=== PATIENT | female | born 1960 | race Caucasian/White ===

== ENCOUNTER → 2016-11-16 | Outpatient (CLI) | payer MEDICARE, MEDICAID ==
[~2016-11-16] MED LIST: ACET-461 PO; ACET325T38 PO; ADV1DS IH; ALB0.5V; ALBU0.632 IH; ALBU17AE23 IH; ALBU17AE3 IH; AMLO5TAB4 PO; ARPZ10T; ARPZ20T; ATEN100T88 PO; CODE118S2 PO; DOXY100C2 PO; FERR324T11 PO; FLUT1DIS26 INH; FLUT1DIS27; FLUT1DIS27 IH; HYDR-34 PO; HYDR12.56 PO; HYDROCODONE; IPRA3AMP11 INH; LISI-556 PO; LISI10TA PO; LISI10TA2 PO; METO50TA2 PO; MISO200T4 PO; MTP50T PO; PANT40TA PO; POTA20TA15 PO; PRD20T PO; PRED20TA PO; SLMFT1E INH; SPIR100T37 PO; SPRN25T PO; TIOT18CA IH; TIOT18CA2 INH; TPR100T; TRH2T; TRIA15OI9 TP; TRM50T PO; TRZ100T; TYLENOL; VENL150C; ZLP10T
--- NOTE | 2016-11-16 14:50 | Diagnostic Imaging Report ---
EXAMINATION: Left lower extremity duplex venous ultrasound. TECHNIQUE: DVT protocol. Multiple sonographic images with color Doppler and waveform interrogation were performed of the left lower extremity veins with compression and augmentation maneuvers. INDICATION: Left leg pain and swelling. FINDINGS: The left lower extremity veins from the groin to below the knee veins were examined with normal color-flow, compressibility and waveform demonstrated. The great saphenous vein is patent. IMPRESSION: No evidence of DVT in the left lower extremity. Dictated by: Dictated on workstation # [id number]
== END ==
LOC: RAD 14:17
PROVIDERS: ATTEND Nurse Practitioner Community Health
DX: M79.89 Other specified soft tissue disorders (principal)

== ENCOUNTER 2017-02-08 14:11 | Emergency (ER) | payer MEDICARE, MEDICAID ==
[~2017-02-08] VITALS: Ht 157.5 cm; Wt 66.7 kg
[2017-02-08] MEDS ORDERED: MUPI15CR11 TP (15:08)
[2017-02-08] MEDS ORDERED: TETANUS,DIPTH,PERTUSS P/F (BOOSTRIX) 0.5 ML VIAL IM STA (15:09)
--- NOTE | 2017-02-08 15:09 | ED Lower Extremity ---
General Chief Complaint: Foreign Body Stated Complaint: SPLINTER IN LEG Nursing Triage Note: PT STATES HAS SPLINTER IN L POSTERIOR THIGH Nursing Sepsis Screen: No Definite Risk History of Present Illness Time seen by provider: 14:50 Initial Comments Evaluation for scratch, left posterior mid thigh. Patient reports that 2-3 days ago she bumped into a table she removed a splinter. Since that she has had pain in this site. She has been treating it with peroxide and Triple Antibiotic ointment. Pain/Injury Location: left leg Method of Injury: fell Allergies and Home Medications Allergies Coded Allergies: amoxicillin (Verified Allergy, Unknown, 03/26/08) diphenhydramine (Verified Allergy, Unknown, 03/26/08) gabapentin (Unverified Allergy, Unknown, 11/09/14) Home Medications Acetaminophen 500 Mg Tablet, 1,000 MG PO Q4H PRN for PAIN, (Reported) Albuterol/Ipratropium 3 Ml Nebu, 3 ML INH Q6H PRN for SHORTNESS OF BREATH, ( Reported) Amlodipine Besylate 5 Mg Tablet, 5 MG PO DAILY, #30 Ref 0 Prescribed by: IVETTE JACKSON on 04/20/16 2151 Lisinopril 5 Mg Tablet, 5 MG PO DAILY, (Reported) Metoprolol Tartrate 50 Mg Tablet, 50 MG PO BID, (Reported) Mupirocin Calcium 15 Gm Cream..g., 15 GM TP TID, #1 Ref 0 Apply to left thigh abrasion 3 times a day. Prescribed by: LENNY BAZZI on 02/08/17 1508 Tiotropium [place] 1 Inh Aerp, 1 CAP INH DAILY, (Reported) Triamcinolone Acetonide 15 Gm Oint, 1 APPLIC TP BID, #30 Ref 0 Prescribed by: IVETTE JACKSON on 04/20/16 2150 Constitutional: no symptoms reported, see HPI Skin: see HPI, lesions Past [id number] Hx Patient Social History Alcohol Use: Denies Use Recreational Drug Use: No Smoking Status: Current Someday Smoker Type Used: Cigarettes Recent Foreign Travel: No Contact w/Someone Who Travel: No Recent Infectious Disease Expo: No Recent Hopitalizations: No Immunizations Up To Date Tetanus Booster (TDap): Unknown PED Vaccines UTD: No Date of Pneumonia Vaccine: Jan 27, 2015 Seasonal Allergies Seasonal Allergies: Yes Surgeries HX Surgeries: Yes Surgeries: Section, Gallbladder, Hysterectomy, Thyroidectomy Respiratory Hx Respiratory Disorders: Yes Respiratory Disorders: COPD Cardiovascular Hx Cardiac Disorders: Yes Cardiac Disorders: Hypertension Neurological Hx Neurological Disorders: Yes Neurological Disorders: Headaches /Migraines Reproductive System Hx Reproductive Disorders: Yes Sexually Transmitted Disease: No HIV/AIDS: No Female Reproductive Disorders: Menstrual Problems 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 Hx 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 Disorders: Yes (RENAL FAILURE?) Gastrointestinal Hx Gastrointestinal Disorders: No Musculoskeletal Hx Musculoskeletal Disorders: No Endocrine Hx Endocrine Disorders: Yes (PARTIAL THYROIDECTOMY,HYPOGLYCEMIC) Endocrine Disorders: Hypothyroidsim HEENT HX ENT Disorders: Yes Loss of Vision: Denies Hearing Impairment: Hard of Hearing, Deaf Cancer Hx Cancer: Yes Cancer: Uterine Psychosocial Hx Psychiatric Problems: Yes Behavioral Health Disorders: Depression Integumentary HX Skin/Integumentary Disorder: No Blood Transfusions Hx Blood Disorders: No Reviewed Nursing Assessment Reviewed/Agree w Nursing PMH: Yes Family Medical History Significant Family History: No Pertinent Family Hx Family Medial History: Cancer 19 MOTHER Family history: Diabetes mellitus 19 FATHER Stroke 19 FATHER Physical Exam Vital Signs Vital Sign - Last 12Hours 02/08/17 14:35 Temp 97.9 Pulse 67 Resp 18 B/P (MAP) 128/69 Pulse Ox 98 Capillary Refill : Less Than 3 Seconds General Appearance: WD/WN, no apparent distress Cardiovascular: normal peripheral pulses, regular rate, rhythm, no murmur Respiratory: chest non-tender, lungs clear, normal breath sounds Gastrointestinal: normal bowel sounds, non tender, soft Legs: left leg pain (superficial abrasion posterior mid-thigh), left leg soft tissue tenderness Neurologic/Psychiatric: no motor/sensory deficits, alert, normal mood/affect, oriented x 3 Skin: normal color, warm/dry, other (very superficial abrasion, left mid posterior thigh. Trace erythema, no warmth or drainage, no induration or fluctuation.) Progress/Results/Core Measures Results/Orders My Orders Orders - LENNY BAZZI Dipht,Pertuss(Acell),Tet Adult (Boostrix (02/08/17 15:09) Vital Signs/I&O Vital Sign - Last 12Hours 02/08/17 02/08/17 14:35 15:16 Temp 97.9 97.9 Pulse 67 67 Resp 18 18 B/P (MAP) 128/69 Pulse Ox 98 98 Blood Pressure Mean: 88 Progress Note : Time: 14:50 Progress Note Superficial abrasion left posterior thigh, with peroxide and triple antibiotic applied. With Band-Aid. Departure Impression Impression: Primary Impression: Superficial abrasion Disposition: 01 HOME, SELF-CARE Condition: Improved Departure-Patient Inst. Decision time for Depature: 15:05 Referrals: DELFIN KEARNS MD (PCP) Primary Care Physician HONEY RAIN (Family) Primary Care Physician Patient Instructions: Skin Abrasions (DC) Add. Discharge Instructions: Warm moist compresses to left thigh area every 1-2 hours. Clean area with peroxide and apply prescription antibiotic ointment 3 times a day. Keep area Covered with a Band-Aid. Return to emergency department for increased redness, drainage from site, fever greater than 100, or new problems. All discharge instructions reviewed with patient and/or family. Voiced understanding. Scripts Mupirocin Calcium (Mupirocin) 15 Gm Cream..g. 15 GM TP TID, #1 TUBE 0 Refills Apply to left thigh abrasion 3 times a day. Prov: LENNY BAZZI 02/08/17 LENNY BAZZI Feb 08, 2017 15:09
[2017-02-08 15:16] VITALS: BP 128/69
--- OUTSIDE RECORDS SUMMARY | 2017-02-15 22:17 | XMS REPORT ---
Author Author HONEY RAIN Organization [employer] Address Unknown Phone Unavailable Care Team Providers Care Manual Equipment Mechanic Name Role Phone HONEY RAIN CP Unavailable Allergies No Known Allergies Problems Problem Type Condition Code Onset Dates Condition Status Assessment Other screening mammogram Z12.31 Active Problem Essential (primary) hypertension I10 Active Problem Chronic obstructive pulmonary disease, unspecified J44.9 Active Problem Low back pain M54.5 Active Problem Family history of early CAD Z82.49 Active Problem Family history of coronary artery disease V17.3 Active Problem Acquired deafness of left ear H91.92 Active Problem Migraine, unspecified, not intractable, without status migrainosus G43.909 Active Medications No Known Medications Results No Known Results Summary Purpose eClinicalWorks Submission
--- OUTSIDE RECORDS SUMMARY | 2017-02-15 22:17 | XMS REPORT ---
Author YUDELKA [facility] eClinical[employer] Address Unknown Phone Unavailable Care Team Providers Care Sprinkler Driver Name Role Phone YUDELKA GUILLORY CP Unavailable Allergies, Adverse Reactions, Alerts Substance Reaction Event Type Symbicort Info Not Available Drug Allergy Mobic Info Not Available Drug Allergy Benadryl Info Not Available Drug Allergy Amoxicillin Info Not Available Drug Allergy Penicillins Info Not Available Non Drug Allergy Neurontin 100 Mg Capsule makes her feel drunk Non Drug Allergy Problems Problem Type Condition Code Onset Dates Condition Status Assessment Bronchitis J40 Active Assessment Pharyngitis J02.9 Active Problem Essential (primary) hypertension I10 Active Problem Chronic obstructive pulmonary disease, unspecified J44.9 Active Problem Low back pain M54.5 Active Problem Family history of early CAD Z82.49 Active Problem Family history of coronary artery disease V17.3 Active Problem Acquired deafness of left ear H91.92 Active Problem Migraine, unspecified, not intractable, without status migrainosus G43.909 Active Medications Medication Code System Code Instructions Start Date End Date Status Dosage Aspirin EC Low Dose [facility] [address]-70 81 MG Orally Once a day Apr 28, 2015 November 24, 2015 1 tablet Ventolin HFA [facility] [address]-68 108 (90 Base) MCG/ACT Inhalation as needed Apr 28, 2015 2 puffs as needed Tylenol [facility] [address]-09 325 MG Orally every 6 hrs 1 tablet as needed Ipratropium-Albuterol [facility] [address]-07 0.5-2.5 (3) MG/3ML Inhalation Four times a day As Needed February 19, 2015 3 ml Metoprolol Tartrate [facility] 21497262918 50 MG TAKE 1 TABLET TWICE DAILY Lisinopril [facility] 32827415500 5 MG TAKE 1 TABLET ONE TIME DAILY Cheratussin AC [facility] [address]-20 100-10 MG/5ML Orally every 4-6 hrs as needed for cough Jul 09, 2015 Jul 16, 2015 5 ml Spiriva HandiHaler [facility] [address]-59 18 MCG Inhalation Once a day 1 capsule Procedures Procedure Coding System Code Date Office Visit, Est Pt., Level 3 CPT-4 68838 Jul 09, 2015 DEPO MEDROL 40 MG/ML CPT-4 J1030 Jul 09, 2015 [facility] VISIT ESTABLISHED PATIENT CPT-4 G0467 Jul 09, 2015 DEXAMETHASONE 4MG/ML (PER 1 MG) CPT-4 J1100 Jul 09, 2015 THER/PROPH/DIAG INJ, SC/IM CPT-4 27461 Jul 09, 2015 Vital Signs Date/Time: Jul 09, 2015 Temperature 97.5 F Weight 163.8 lbs Height 62 in BMI 29.96 Index Blood Pressure Diastolic 98 mmHg Blood Pressure Systolic 146 mmHg Cardiac Monitoring Heart Rate 72 bpm Results No Known Results Summary Purpose eClinicalWorks Submission
--- OUTSIDE RECORDS SUMMARY | 2017-02-15 22:17 | XMS REPORT ---
Author Author HONEY RAIN Organization [employer] Address Unknown Phone Unavailable Care Team Providers Care Pleat Taper Name Role Phone HONEY RAIN CP Unavailable Allergies No Known Allergies Problems Problem Type Condition ICD-9 Code Onset Dates Condition Status Problem Essential hypertension, benign 401.1 Active Problem Rash and other nonspecific skin eruption 782.1 Active Problem Pain in joint, shoulder region 719.41 Active Problem Chest discomfort 786.59 Active Problem Cough 786.2 Active Problem ARANDA (dyspnea on exertion) 786.09 Active Problem Unspecified hypotension 458.9 Active Problem Hypertension 401.9 Active Problem Leg swelling 729.81 Active Problem Lumbago 724.2 Active Problem Tobacco use 305.1 Active Problem Family history of coronary artery disease V17.3 Active Problem Migraine, unspecified without mention of intractable migraine without mention of status migrainosus 346.90 Active Problem Acute bronchitis 466.0 Active Problem Unspecified disorder of kidney and ureter 593.9 Active Problem Unspecified breast screening V76.10 Active Problem Routine general medical examination at health care facility V70.0 Active Problem Syncope and collapse 780.2 Active Problem Acute sinusitis, unspecified 461.9 Active Problem Other chronic pain 338.29 Active Problem Candidiasis of mouth 112.0 Active Problem Chronic airway obstruction, not elsewhere classified 496 Active Medications No Known Medications Results No Known Results Summary Purpose eClinicalWorks Submission
--- OUTSIDE RECORDS SUMMARY | 2017-02-15 22:18 | XMS REPORT ---
Author Author HONEY RAIN [facility] eClinicalWorks Address Unknown Phone Unavailable Care Team Providers Care Electronic Train Control Technician Name Role Phone HONEY RAIN CP Unavailable Allergies, Adverse Reactions, Alerts Substance Reaction Event Type Symbicort Info Not Available Drug Allergy Mobic Info Not Available Drug Allergy Gabapentin rash Drug Allergy Benadryl Info Not Available Drug Allergy Amoxicillin Info Not Available Drug Allergy Penicillins Info Not Available Non Drug Allergy Neurontin 100 Mg Capsule makes her feel drunk Non Drug Allergy Problems Problem Type Condition Code Onset Dates Condition Status Problem Family history of coronary artery disease V17.3 Active Problem Migraine, unspecified, not intractable, without status migrainosus G43.909 Active Problem Family history of early CAD Z82.49 Active Problem Essential (primary) hypertension I10 Active Problem Nicotine dependence, unspecified, uncomplicated F17.200 Active Problem Anxiety F41.9 Active Problem Chronic obstructive pulmonary disease, unspecified J44.9 Active Problem Acquired deafness of left ear H91.92 Active Problem Headache R51 Active Problem Low back pain M54.5 Active Assessment Breast cancer screening Z12.39 Active Assessment Anxiety F41.9 Active Assessment Nicotine dependence, unspecified, uncomplicated F17.200 Active Assessment Essential (primary) hypertension I10 Active Medications Medication Code System Code Instructions Start Date End Date Status Dosage Ventolin HFA [facility] [address]-31 108 (90 Base) MCG/ACT Inhalation as needed Apr 28, 2015 2 puffs as needed Zyrtec Childrens Allergy [facility] [address]-40 5 MG/5ML Orally Once a day May 17, 2016 5 ml - 10 ml as needed Aspir-81 [facility] [address]-74 81 MG Orally Once a day 1 tablet Amlodipine Besylate [facility] [address]-87 10 MG Orally Once a day 1 tablet Ipratropium-Albuterol [facility] [address]-73 0.5-2.5 (3) MG/3ML Inhalation Four times a day As Needed February 19, 2015 3 ml Metoprolol Tartrate [facility] 46973903273 50 MG TAKE 1 TABLET TWICE DAILY Spiriva HandiHaler [facility] 67455772045 18 INHALE ONE CAPSULE BY MOUTH DAILY USING HANDIHALER DEVICE Lisinopril [facility] [address]-00 20 MG Orally TAKE 1 TABLET ONE TIME DAILY Tylenol [facility] [address]-99 325 MG Orally every 6 hrs 1 tablet as needed Procedures Procedure Coding System Code Date Office Visit, Est Pt., Level 3 CPT-4 79581 May 17, 2016 [facility] VISIT ESTABLISHED PATIENT CPT-4 G0467 May 17, 2016 Vital Signs Date/Time: May 17, 2016 Cardiac Monitoring Heart Rate 78 bpm Weight 145 lbs Height 62 in BMI 26.52 Index Blood Pressure Diastolic 84 mmHg Blood Pressure Systolic 138 mmHg Results No Known Results Summary Purpose eClinicalWorks Submission
--- OUTSIDE RECORDS SUMMARY | 2017-02-15 22:18 | XMS REPORT ---
Author Author HONEY RAIN Organization [employer] Address Unknown Phone Unavailable Care Team Providers Care Topology Teacher Name Role Phone HONEY RAIN CP Unavailable Allergies No Known Allergies Problems Problem Type Condition Code Onset Dates Condition Status Assessment Essential (primary) hypertension I10 Active Problem Essential (primary) hypertension I10 Active Problem Chronic obstructive pulmonary disease, unspecified J44.9 Active Problem Low back pain M54.5 Active Problem Family history of early CAD Z82.49 Active Problem Family history of coronary artery disease V17.3 Active Problem Acquired deafness of left ear H91.92 Active Problem Migraine, unspecified, not intractable, without status migrainosus G43.909 Active Medications No Known Medications Procedures Procedure Coding System Code Date VENIPUNCT, ROUTINE* CPT-4 98667 May 18, 2015 [facility] C[facility] NOBLL May 18, 2015 Results Name Result Date Reference Range Unit Abnormality Flag ROUTINE VENIPUNCTURE Summary Purpose eClinicalWorks Submission
--- OUTSIDE RECORDS SUMMARY | 2017-02-15 22:18 | XMS REPORT ---
Author Author HONEY RAIN Organization [employer] Address Unknown Phone Unavailable Care Team Providers Care Deputy Clerk Of Court Name Role Phone HONEY RAIN CP Unavailable Allergies No Known Allergies Problems Problem Type Condition Code Onset Dates Condition Status Problem Essential (primary) hypertension I10 Active Problem [...]
--- OUTSIDE RECORDS SUMMARY | 2017-02-15 22:18 | XMS REPORT ---
Author Author HONEY RAIN [facility] eClinicalWorks Address Unknown Phone Unavailable Care Team Providers Care Couture Alterations Dressmaker Name Role Phone HONEY RAIN CP Unavailable [...] Condition Code Onset Dates Condition Status Assessment Chronic obstructive pulmonary disease, unspecified J44.9 Active Problem Family history of early CAD Z82.49 Active Problem Family history of coronary artery disease V17.3 Active Problem Headache R51 Active Problem COPD (chronic obstructive pulmonary disease) J44.9 Active Problem Hypertension I10 Active Problem Acquired deafness of left ear H91.92 Active Problem Migraine, unspecified, not intractable, without status migrainosus G43.909 Active Problem Low back pain M54.5 Active Problem Chronic obstructive pulmonary disease, unspecified J44.9 Active Assessment COPD (chronic obstructive pulmonary disease) J44.9 Active Assessment Headache R51 Active Assessment Hypertension I10 Active Medications Medication Code System Code Instructions Start Date End Date Status Dosage Breo Ellipta [facility] [address]-32 100-25 MCG/INH Inhalation Once a day November 18, 2015 1 puff Ventolin HFA [facility] [address]-65 108 (90 Base) MCG/ACT Inhalation as needed Apr 28, 2015 2 puffs as needed Ipratropium-Albuterol [facility] [address]-20 0.5-2.5 (3) MG/3ML Inhalation Four times a day As Needed February 19, 2015 3 ml Metoprolol Tartrate [facility] 67578991540 50 MG TAKE 1 TABLET TWICE DAILY Spiriva HandiHaler [facility] [address]-22 18 INHALE THE ENTIRE CONTENTS OF 1 CAPSULE ONCE A DAY USING HANDIHALER DEVICE Tylenol [facility] [address]-78 325 MG Orally every 6 hrs 1 tablet as needed Lisinopril [facility] [address]-89 20 MG Orally TAKE 1 TABLET ONE TIME DAILY Aspirin EC Low Dose [facility] [address]-60 81 MG Orally Once a day Apr 28, 2015 November 24, 2015 1 tablet Procedures Procedure Coding System Code Date Office Visit, Est Pt., Level 3 CPT-4 73266 November 18, 2015 [facility] VISIT ESTABLISHED PATIENT CPT-4 G0467 November 18, 2015 Vital Signs Date/Time: November 18, 2015 Temperature 98.2 F Weight 158.8 lbs Height 62 in BMI 29.04 Index Blood Pressure Diastolic 100 mmHg Blood Pressure Systolic 170 mmHg Cardiac Monitoring Heart Rate 64 bpm Results No Known Results Summary Purpose eClinicalWorks Submission
--- OUTSIDE RECORDS SUMMARY | 2017-02-15 22:18 | XMS REPORT ---
Author Author HONEY RAIN [facility] eClinicalWorks Address Unknown Phone Unavailable Care Team Providers Care Animal Care Taker Name Role Phone HONEY RAIN CP Unavailable [...] obstructive pulmonary disease, unspecified J44.9 Active Assessment Essential (primary) hypertension I10 Active Problem [...] Instructions Start Date End Date Status Dosage Ipratropium-Albuterol [facility] [address]-64 0.5-2.5 (3) MG/3ML Inhalation Four times a day As Needed February 19, [address] [facility] [address]-57 5 MG Orally Once a day December 18, [address] [facility] [address]-48 325 MG Orally every 6 hrs 1 tablet as needed Aspirin EC Low Dose [facility] [address]-64 81 MG Orally Once a day Apr 28, 2015 November 24, 2015 1 tablet Aspir-[address] [facility] [address]-99 81 MG Orally Once a day [address] HFA [facility] [address]-08 108 (90 Base) MCG/ACT Inhalation as needed Apr 28, 2015 2 puffs as needed Spiriva HandiHaler [facility] [address]-25 18 MCG Inhalation Once a day 1 capsule Metoprolol Tartrate [facility] [address]-28 50 MG Orally Twice a day December 18, 2014 1 tablet Procedures Procedure Coding System Code Date [facility] VISIT ESTABLISHED PATIENT CPT-4 G0467 Apr 28, 2015 Office Visit, Est Pt., Level 3 CPT-4 22372 Apr 28, 2015 MEASURE BLOOD OXYGEN LEVEL CPT-4 51377 Apr 28, 2015 Vital Signs Date/Time: Apr 28, 2015 Temperature 97.4 F Weight 159.4 lbs Height 62 in Oximetry 92 % Blood Pressure Diastolic 84 mmHg Blood Pressure Systolic 156 mmHg Cardiac Monitoring Heart Rate 72 bpm BMI 29.15 Index Results No Known Results Summary Purpose eClinicalWorks Submission
--- OUTSIDE RECORDS SUMMARY | 2017-02-15 22:18 | XMS REPORT ---
Author Author HONEY RAIN Organization [employer]ClinicalWorks Address Unknown Phone Unavailable Care Team Providers Care Centrifugal Casting Machine Tender Name Role Phone HONEY RAIN CP Unavailable [...] obstruction, not elsewhere classified 496 Active Medications Medication Code System Code Instructions Start Date End Date Status Dosage Spiriva HandiHaler [facility] [address]-73 18 MCG Inhalation Once a day 1 capsule Results No Known Results Summary Purpose eClinicalWorks Submission
--- OUTSIDE RECORDS SUMMARY | 2017-02-15 22:18 | XMS REPORT ---
Author Author HONEY RAIN Organization [employer] Address Unknown Phone Unavailable Care Team Providers Care Automobile Mechanic Name Role Phone HONEY RAIN CP [...]
--- OUTSIDE RECORDS SUMMARY | 2017-02-15 22:19 | XMS REPORT ---
Author Author HONEY RAIN [facility] eClinicalWorks Address Unknown Phone Unavailable Care Team Providers Care Carpenter Apprentice Name Role Phone HONEY RAIN CP Unavailable [...] Condition Code Onset Dates Condition Status Assessment Headache R51 Active Problem Family history of coronary artery disease V17.3 Active Assessment Essential (primary) hypertension I10 Active Assessment Chronic obstructive pulmonary disease, unspecified J44.9 Active Problem Headache R51 Active Problem Low back pain M54.5 Active Problem Hypertension I10 Active Problem Migraine, unspecified, not intractable, without status migrainosus G43.909 Active Problem Family history of early CAD Z82.49 Active Problem Chronic obstructive pulmonary disease, unspecified J44.9 Active Problem Acquired deafness of left ear H91.92 Active Medications Medication Code System Code Instructions Start Date End Date Status Dosage Tylenol [facility] [address]-31 325 MG Orally every 6 hrs 1 tablet as needed Ipratropium-Albuterol [facility] [address]-21 0.5-2.5 (3) MG/3ML Inhalation Four times a day As Needed February 19, 2015 3 ml Spiriva HandiHaler [facility] 20350308470 18 INHALE ONE CAPSULE BY MOUTH DAILY USING HANDIHALER DEVICE Amlodipine Besylate [facility] [address]-42 10 MG Orally Once a day 1 tablet Lisinopril [facility] [address]-58 20 MG Orally TAKE 1 TABLET ONE TIME DAILY Metoprolol Tartrate [facility] 99402516527 50 MG TAKE 1 TABLET TWICE DAILY Ventolin HFA [facility] [address]-85 108 (90 Base) MCG/ACT Inhalation as needed Apr 28, 2015 2 puffs as needed Procedures Procedure Coding System Code Date Office Visit, Est Pt., Level 3 CPT-4 72489 Apr 21, 2016 [facility] VISIT ESTABLISHED PATIENT CPT-4 G0467 Apr 21, 2016 Vital Signs Date/Time: Apr 21, 2016 Cardiac Monitoring Heart Rate 74 bpm Weight 152.8 lbs Height 62 in BMI 27.94 Index Blood Pressure Diastolic 82 mmHg Blood Pressure Systolic 150 mmHg Results No Known Results Summary Purpose eClinicalWorks Submission
--- OUTSIDE RECORDS SUMMARY | 2017-02-15 22:20 | XMS REPORT | Continuity of Care Document ---
Author Author [facility] Address Unknown Phone Unavailable Allergies Active Description Code Type Severity Reaction Onset Reported/Identified Relationship to Patient Clinical Status Yes amoxicillin [id number] Drug Allergy Unknown N/A 03/26/2008 Yes diphenhydramine [id number] Drug Allergy Unknown N/A 03/26/2008 Yes Amoxicillin Drug Allergy N/A N/A 01/31/2013 Yes Benadryl Drug Allergy N/A N/A 01/31/2013 Yes Mobic Drug Allergy N/A N/A 06/24/2013 Yes Penicillins Drug Allergy N/A N/A 06/24/2013 Yes Symbicort Drug Allergy N/A N/A 11/12/2013 Yes Neurontin 100 mg capsule Drug Allergy N/A N/A 01/21/2014 Yes gabapentin [id number] Drug Allergy Unknown N/A 11/09/2014 Medications Problems Date Dx Coded Attending Type Code Diagnosis Diagnosed By 12/03/2009 Ot V12.72 PERSONAL HISTORY OF COLONIC POLYPS 12/03/2009 Ot V67.09 SURGERY FOLLOW-UP, OTHER SURGERY 12/20/2009 Ot 276.1 12/20/2009 Ot 300.4 12/20/2009 Ot 305.1 12/20/2009 Ot 458.0 12/20/2009 Ot 491.21 12/20/2009 Ot 959.3 12/20/2009 Ot E000.9 12/20/2009 Ot E030 12/20/2009 Ot E849.0 12/20/2009 Ot E888.9 12/20/2009 Ot E947.9 10/15/2010 Ot 401.9 10/15/2010 Ot 492.8 08/16/2012 Ot 719.45 JOINT PAIN-PELVIS 08/16/2012 Ot 722.52 LUMB/LUMBOSAC DISC DEGEN 08/16/2012 Ot V57.1 PHYSICAL THERAPY NEC 01/14/2013 REYNALDO NAVA, VICKI Fatima Ot 491.21 OBSTR CHRONIC BRONCHITIS, W (ACUTE) EXAC 01/14/2013 VICKI WALL Ot 780.2 SYNCOPE AND COLLAPSE 01/31/2013 BRISEYDA ONLINE MERCHANDISING MANAGER, HONEY S 338.29 CHRONIC PAIN 01/31/2013 BRISEYDA ONLINE MERCHANDISING MANAGER, HONEY S 401.1 ESSENTIAL HYPERTENSION BENIGN 01/31/2013 BRISEYDA ONLINE MERCHANDISING MANAGER, HONEY S 496 CHRONIC OBSTRUCTIVE PULMONARY DISEASE 01/31/2013 BRISEYDA ONLINE MERCHANDISING MANAGER, HONEY S 780.2 fainting (syncope) 01/31/2013 BRISEYDA ONLINE MERCHANDISING MANAGER, HONEY S V70.0 NORMAL ROUTINE HISTORY AND PHYSICAL 01/31/2013 CUELLAR DO, LAMBERTO K 338.29 CHRONIC PAIN 01/31/2013 CUELLAR DO, LAMBERTO K 401.1 ESSENTIAL HYPERTENSION BENIGN 01/31/2013 CUELLAR DO, LAMBERTO K 496 CHRONIC OBSTRUCTIVE PULMONARY DISEASE 01/31/2013 CUELLAR DO, LAMBERTO K 780.2 fainting (syncope) 01/31/2013 CUELLAR DO, LAMBERTO K V70.0 NORMAL ROUTINE HISTORY AND PHYSICAL 01/31/2013 DELFIN KEARNS MD 338.29 CHRONIC PAIN 01/31/2013 DELFIN KEARNS MD 401.1 ESSENTIAL HYPERTENSION BENIGN 01/31/2013 DELFIN KEARNS MD 496 CHRONIC OBSTRUCTIVE PULMONARY DISEASE 01/31/2013 DELFIN KEARNS MD 780.2 fainting (syncope) 01/31/2013 DELFIN KEARNS MD V70.0 NORMAL ROUTINE HISTORY AND PHYSICAL 01/31/2013 BRISEYDA HELLER, HONEY S 338.29 CHRONIC PAIN 01/31/2013 BRISEYDA ASTORGAN, HONEY S 401.1 ESSENTIAL HYPERTENSION BENIGN 01/31/2013 BRISEYDA ONLINE MERCHANDISING MANAGER, HONEY S 496 CHRONIC OBSTRUCTIVE PULMONARY DISEASE 01/31/2013 BRISEYDA ONLINE MERCHANDISING MANAGER, HONEY S 780.2 fainting (syncope) 01/31/2013 BRISEYDA ONLINE MERCHANDISING MANAGER, HONEY S V70.0 NORMAL ROUTINE HISTORY AND PHYSICAL 01/31/2013 BRISEYDA ONLINE MERCHANDISING MANAGER, HONEY S 338.29 CHRONIC PAIN 01/31/2013 BRISEYDA ONLINE MERCHANDISING MANAGER, HONEY S 401.1 ESSENTIAL HYPERTENSION BENIGN 01/31/2013 BRISEYDA ONLINE MERCHANDISING MANAGER, HONEY S 496 CHRONIC OBSTRUCTIVE PULMONARY DISEASE 01/31/2013 BRISEYDA ONLINE MERCHANDISING MANAGER, HONEY S 780.2 fainting (syncope) 01/31/2013 BRIESYDA ONLINE MERCHANDISING MANAGER, HONEY S V70.0 NORMAL ROUTINE HISTORY AND PHYSICAL 01/31/2013 BRISEYDA ONLINE MERCHANDISING MANAGER, HONEY S 338.29 CHRONIC PAIN 01/31/2013 BRISEYDA ONLINE MERCHANDISING MANAGER, HONEY S 401.1 ESSENTIAL HYPERTENSION BENIGN 01/31/2013 BRISEYDA ONLINE MERCHANDISING MANAGER, HONEY S 496 CHRONIC OBSTRUCTIVE PULMONARY DISEASE 01/31/2013 BRISEYDA ONLINE MERCHANDISING MANAGER, HONEY S 780.2 fainting (syncope) 01/31/2013 BRISEYDA ONLINE MERCHANDISING MANAGER, HONEY S V70.0 NORMAL ROUTINE HISTORY AND PHYSICAL 01/31/2013 BRISEYDA ONLINE MERCHANDISING MANAGER, HONEY S 338.29 CHRONIC PAIN 01/31/2013 BRISEYDA ONLINE MERCHANDISING MANAGER, HONEY S 401.1 ESSENTIAL HYPERTENSION BENIGN 01/31/2013 BRISEYDA ONLINE MERCHANDISING MANAGER, HONEY S 496 CHRONIC OBSTRUCTIVE PULMONARY DISEASE 01/31/2013 BRISEYDA ONLINE MERCHANDISING MANAGER, HONEY S 780.2 fainting (syncope) 01/31/2013 BRISEYDA ONLINE MERCHANDISING MANAGER, HONEY S V70.0 NORMAL ROUTINE HISTORY AND PHYSICAL 01/31/2013 BRISEYDA ONLINE MERCHANDISING MANAGER, HONEY S 338.29 CHRONIC PAIN 01/31/2013 BRISEYDA ONLINE MERCHANDISING MANAGER, HONEY S 401.1 ESSENTIAL HYPERTENSION BENIGN 01/31/2013 BRISEYDA ONLINE MERCHANDISING MANAGER, HONEY S 496 CHRONIC OBSTRUCTIVE PULMONARY DISEASE 01/31/2013 BRISEYDA ONLINE MERCHANDISING MANAGER, HONEY S 780.2 fainting (syncope) 01/31/2013 BRISEYDA ONLINE MERCHANDISING MANAGER, HONEY S V70.0 NORMAL ROUTINE HISTORY AND PHYSICAL 01/31/2013 DELFIN KEARNS MD 338.29 CHRONIC PAIN 01/31/2013 DELFIN KEARNS MD 401.1 ESSENTIAL HYPERTENSION BENIGN 01/31/2013 DELFIN KEARNS MD 496 CHRONIC OBSTRUCTIVE PULMONARY DISEASE 01/31/2013 DELFIN KEARNS MD 780.2 fainting (syncope) 01/31/2013 DELFIN KEARNS MD V70.0 NORMAL ROUTINE HISTORY AND PHYSICAL 01/31/2013 CUELLAR DO, LAMBERTO K 338.29 CHRONIC PAIN 01/31/2013 CUELLAR DO, LAMBERTO K 401.1 ESSENTIAL HYPERTENSION BENIGN 01/31/2013 CUELLAR DO, LAMBERTO K 496 CHRONIC OBSTRUCTIVE PULMONARY DISEASE 01/31/2013 CUELLAR DO, LAMBERTO K 780.2 fainting (syncope) 01/31/2013 CUELLAR DO, LAMBERTO K V70.0 NORMAL ROUTINE HISTORY AND PHYSICAL 01/31/2013 BRISEYDA ONLINE MERCHANDISING MANAGER, HONEY S 338.29 CHRONIC PAIN 01/31/2013 BRISEYDA ONLINE MERCHANDISING MANAGER, HONEY S 401.1 ESSENTIAL HYPERTENSION BENIGN 01/31/2013 BRISEYDA ONLINE MERCHANDISING MANAGER, HONEY S 496 CHRONIC OBSTRUCTIVE PULMONARY DISEASE 01/31/2013 BRISEYDA ONLINE MERCHANDISING MANAGER, HONEY S 780.2 FAINTING (SYNCOPE) 01/31/2013 BRISEYDA ONLINE MERCHANDISING MANAGER, HONEY S V70.0 NORMAL ROUTINE HISTORY AND PHYSICAL 01/31/2013 BRISEYDA ONLINE MERCHANDISING MANAGER, HONEY S 338.29 CHRONIC PAIN 01/31/2013 BRISEYDA ONLINE MERCHANDISING MANAGER, HONEY S 401.1 ESSENTIAL HYPERTENSION BENIGN 01/31/2013 BRISEYDA ONLINE MERCHANDISING MANAGER, HONEY S 496 CHRONIC OBSTRUCTIVE PULMONARY DISEASE 01/31/2013 BRISEYDA ONLINE MERCHANDISING MANAGER, HONEY S 780.2 FAINTING (SYNCOPE) 01/31/2013 BRISEYDA HELLER, HONEY S V70.0 NORMAL ROUTINE HISTORY AND PHYSICAL 01/31/2013 TIMBO ONLINE MERCHANDISING MANAGER, LEAH R 338.29 CHRONIC PAIN 01/31/2013 TIMBO ONLINE MERCHANDISING MANAGER, LEAH R 401.1 ESSENTIAL HYPERTENSION BENIGN 01/31/2013 TIMBO ONLINE MERCHANDISING MANAGER, LEAH R 496 CHRONIC OBSTRUCTIVE PULMONARY DISEASE 01/31/2013 TIMBO ONLINE MERCHANDISING MANAGER, LEAH R 780.2 FAINTING (SYNCOPE) 01/31/2013 TIMBO ONLINE MERCHANDISING MANAGER, LEAH R V70.0 NORMAL ROUTINE HISTORY AND PHYSICAL 01/31/2013 BRISYEDA HELLER, HONEY S 338.29 CHRONIC PAIN 01/31/2013 BRISEYDA ONLINE MERCHANDISING MANAGER, HONEY S 401.1 ESSENTIAL HYPERTENSION BENIGN 01/31/2013 BRISEYDA ONLINE MERCHANDISING MANAGER, HONEY S 496 CHRONIC OBSTRUCTIVE PULMONARY DISEASE 01/31/2013 BRISEYDA ONLINE MERCHANDISING MANAGER, HONEY S 780.2 FAINTING (SYNCOPE) 01/31/2013 BRISEYDA ONLINE MERCHANDISING MANAGER, HONEY S V70.0 NORMAL ROUTINE HISTORY AND PHYSICAL 01/31/2013 TIMBO ONLINE MERCHANDISING MANAGER, LEAH R 338.29 CHRONIC PAIN 01/31/2013 TIMBO ONLINE MERCHANDISING MANAGER, LEAH R 401.1 ESSENTIAL HYPERTENSION BENIGN 01/31/2013 TIMBO ONLINE MERCHANDISING MANAGER, LEAH R 496 CHRONIC OBSTRUCTIVE PULMONARY DISEASE 01/31/2013 TIMBO ONLINE MERCHANDISING MANAGER, LEAH R 780.2 FAINTING (SYNCOPE) 01/31/2013 TIMBO ONLINE MERCHANDISING MANAGER, LEAH R V70.0 NORMAL ROUTINE HISTORY AND PHYSICAL 01/31/2013 CUELLAR DO, LAMBERTO K 338.29 CHRONIC PAIN 01/31/2013 CUELLAR DO, LAMBERTO K 401.1 ESSENTIAL HYPERTENSION BENIGN 01/31/2013 CUELLAR DO, LAMBERTO K 496 CHRONIC OBSTRUCTIVE PULMONARY DISEASE 01/31/2013 CUELLAR DO, LAMBERTO K 780.2 FAINTING (SYNCOPE) 01/31/2013 CUELLAR DO, LAMBERTO K V70.0 NORMAL ROUTINE HISTORY AND PHYSICAL 01/31/2013 BRISEYDA ONLINE MERCHANDISING MANAGER, HONEY S 338.29 CHRONIC PAIN 01/31/2013 BRISEYDA ONLINE MERCHANDISING MANAGER, HONEY S 401.1 ESSENTIAL HYPERTENSION BENIGN 01/31/2013 BRISEYDA ONLINE MERCHANDISING MANAGER, HONEY S 496 CHRONIC OBSTRUCTIVE PULMONARY DISEASE 01/31/2013 BRISEYDA ONLINE MERCHANDISING MANAGER, HONEY S 780.2 FAINTING (SYNCOPE) 01/31/2013 BRISEYDA ONLINE MERCHANDISING MANAGER, HONEY S V70.0 NORMAL ROUTINE HISTORY AND PHYSICAL 04/01/2013 BRISEYDA ONLINE MERCHANDISING MANAGER, HONEY S 719.41 joint pain, localized in the shoulder 04/01/2013 CUELLAR DO, LAMBERTO K 719.41 joint pain, localized in the shoulder 04/01/2013 DELFIN KEARNS MD 719.41 joint pain, localized in the shoulder 04/01/2013 BRISEYDA ONLINE MERCHANDISING MANAGER, HONEY S 719.41 joint pain, localized in the shoulder 04/01/2013 BRISEYDA ONLINE MERCHANDISING MANAGER, HONEY S 719.41 joint pain, localized in the shoulder 04/01/2013 BRISEYDA ONLINE MERCHANDISING MANAGER, HONEY S 719.41 joint pain, localized in the shoulder 04/01/2013 BRISEYDA ONLINE MERCHANDISING MANAGER, HONEY S 719.41 joint pain, localized in the shoulder 04/01/2013 BRISEYDA ONLINE MERCHANDISING MANAGER, HONEY S 719.41 joint pain, localized in the shoulder 04/01/2013 DELFIN KEARNS MD 719.41 joint pain, localized in the shoulder 04/01/2013 CUELLAR DO LAMBERTO K 719.41 joint pain, localized in the shoulder 04/01/2013 BRISEYDA ONLINE MERCHANDISING MANAGER, HONEY S 719.41 joint pain, localized in the shoulder 04/01/2013 BRISEYDA ONLINE MERCHANDISING MANAGER, HONEY S 719.41 joint pain, localized in the shoulder 04/01/2013 TIMBO ONLINE MERCHANDISING MANAGER, LEAH R 719.41 joint pain, localized in the shoulder 04/01/2013 BRISEYDA ONLINE MERCHANDISING MANAGER, HONEY S 719.41 JOINT PAIN, LOCALIZED IN THE SHOULDER 04/01/2013 TIMBO ONLINE MERCHANDISING MANAGER, LEAH R 719.41 JOINT PAIN, LOCALIZED IN THE SHOULDER 04/01/2013 CUELLAR DO, LAMBERTO K 719.41 JOINT PAIN, LOCALIZED IN THE SHOULDER 04/01/2013 BRISEYDA ONLINE MERCHANDISING MANAGER, HONEY S 719.41 JOINT PAIN, LOCALIZED IN THE SHOULDER 06/03/2013 VICKI WALL Ot 491.21 OBSTR CHRONIC BRONCHITIS, W (ACUTE) EXAC 06/03/2013 VICKI WALL Ot 786.2 COUGH 06/24/2013 DELFIN KEARNS MD 782.1 RASH 06/24/2013 BRISEYDA ONLINE MERCHANDISING MANAGER, HONEY S 782.1 RASH 06/24/2013 BRISEYDA ONLINE MERCHANDISING MANAGER, HONEY S 782.1 RASH 06/24/2013 BRISEYDA ONLINE MERCHANDISING MANAGER, HONEY S 782.1 RASH 06/24/2013 BRISEYDA ONLINE MERCHANDISING MANAGER, HONEY S 782.1 RASH 06/24/2013 BRISEYDA ONLINE MERCHANDISING MANAGER, HONEY S 782.1 RASH 06/24/2013 DELFIN KEARNS MD 782.1 RASH 06/24/2013 LAMBERTO CUELLAR DO K 782.1 RASH 06/24/2013 BRISEYDA ONLINE MERCHANDISING MANAGER, HONEY S 782.1 RASH 06/24/2013 BRISEYDA ONLINE MERCHANDISING MANAGER, HONEY S 782.1 RASH 06/24/2013 TIMBO ONLINE MERCHANDISING MANAGER, LEAH R 782.1 RASH 06/24/2013 BRISEYDA ONLINE MERCHANDISING MANAGER, HONEY S 782.1 RASH 06/24/2013 TMIBO ONLINE MERCHANDISING MANAGER, LEAH R 782.1 RASH 06/24/2013 JESUS CUELLAR DOA K 782.1 RASH 06/24/2013 BRISEYDA ONLINE MERCHANDISING MANAGER, HONEY S 782.1 RASH 10/15/2013 BRISEYDA ONLINE MERCHANDISING MANAGER, HONEY S 593.9 RENAL INSUFFICIENCY 10/15/2013 BRISEYDA ONLINE MERCHANDISING MANAGER, HONEY S 593.9 RENAL INSUFFICIENCY 10/15/2013 BRISEYDA ONLINE MERCHANDISING MANAGER, HONEY S 593.9 RENAL INSUFFICIENCY 10/15/2013 BRISEYDA ONLINE MERCHANDISING MANAGER, HONEY S 593.9 RENAL INSUFFICIENCY 10/15/2013 BRISEYDA ONLINE MERCHANDISING MANAGER, HONEY S 593.9 RENAL INSUFFICIENCY 10/15/2013 DELFIN KEARNS MD 593.9 RENAL INSUFFICIENCY 10/15/2013 CUELLAR DO, LAMBERTO K 593.9 RENAL INSUFFICIENCY 10/15/2013 BRISEYDA ONLINE MERCHANDISING MANAGER, HONEY S 593.9 RENAL INSUFFICIENCY 10/15/2013 BRISEYDA ONLINE MERCHANDISING MANAGER, HONEY S 593.9 RENAL INSUFFICIENCY 10/15/2013 TIMBO ONLINE MERCHANDISING MANAGER, LEAH R 593.9 RENAL INSUFFICIENCY 10/15/2013 BRISEYDA ONLINE MERCHANDISING MANAGER, HONEY S 593.9 RENAL INSUFFICIENCY 10/15/2013 TIMBO ONLINE MERCHANDISING MANAGER, LEAH R 593.9 RENAL INSUFFICIENCY 10/15/2013 CUELLAR DO, LAMBERTO K 593.9 RENAL INSUFFICIENCY 10/15/2013 BRISEYDA ONLINE MERCHANDISING MANAGER, HONEY S 593.9 RENAL INSUFFICIENCY 01/21/2014 BRISEYDA ONLINE MERCHANDISING MANAGER, HONEY S 724.2 BACK PAIN, LOWER 01/21/2014 BRISEYDA ONLINE MERCHANDISING MANAGER, HONEY S 724.2 BACK PAIN, LOWER 01/21/2014 DELFIN KEARNS MD 724.2 BACK PAIN, LOWER 01/21/2014 CUELLAR DO, LAMBERTO K 724.2 BACK PAIN, LOWER 01/21/2014 BRISEYDA ONLINE MERCHANDISING MANAGER, HONEY S 724.2 BACK PAIN, LOWER 01/21/2014 BRISEYDA ONLINE MERCHANDISING MANAGER, HONEY S 724.2 BACK PAIN, LOWER 01/21/2014 TIMBO ONLINE MERCHANDISING MANAGER, LEAH R 724.2 BACK PAIN, LOWER 01/21/2014 BRISEYDA ONLINE MERCHANDISING MANAGER, HONEY S 724.2 BACK PAIN, LOWER 01/21/2014 TIMBO ONLINE MERCHANDISING MANAGER, LEAH R 724.2 BACK PAIN, LOWER 01/21/2014 CUELLAR DO, LAMBERTO K 724.2 BACK PAIN, LOWER 01/21/2014 BRISEYDA ONLINE MERCHANDISING MANAGER, HONEY S 724.2 BACK PAIN, LOWER 02/14/2014 DELFIN KEARNS MD Ot 276.50 VOLUME DEPLETION, UNSPECIFIED 02/14/2014 URMILA SAUER, DELFIN Heredia Ot 305.1 TOBACCO USE DISORDER 02/14/2014 DELFIN KEARNS MD Ot 458.9 HYPOTENSION NOS 02/14/2014 URMILA SAUER, DELFIN Heredia Ot 496 CHR AIRWAY OBSTRUCT NEC 02/14/2014 DELFIN KEARNS MD Ot 584.9 ACUTE RENAL FAILURE, UNSPECIFIED 02/14/2014 DELFIN KEARNS MD Ot 585.9 CHRONIC KIDNEY DISEASE, UNSPECIFIED 02/18/2014 BRISEYDA HELLER, HONEY S 458.9 HYPOTENSION UNSPECIFIED 02/18/2014 DELFIN KEARNS MD 458.9 HYPOTENSION UNSPECIFIED 02/18/2014 CUELLAR DOLAMBERTO K 458.9 HYPOTENSION UNSPECIFIED 02/18/2014 BRISEYDA ONLINE MERCHANDISING MANAGER, HONEY S 458.9 HYPOTENSION UNSPECIFIED 02/18/2014 BRISEYDA ONLINE MERCHANDISING MANAGER, HONEY S 458.9 HYPOTENSION UNSPECIFIED 02/18/2014 TIMBO ONLINE MERCHANDISING MANAGER, LEAH R 458.9 HYPOTENSION UNSPECIFIED 02/18/2014 BRISEYDA ONLINE MERCHANDISING MANAGER, HONEY S 458.9 HYPOTENSION UNSPECIFIED 02/18/2014 TIMBO ONLINE MERCHANDISING MANAGER, LEAH R 458.9 HYPOTENSION UNSPECIFIED 02/18/2014 CUELLAR DO, LAMBERTO K 458.9 HYPOTENSION UNSPECIFIED 02/18/2014 BRISEYDA ONLINE MERCHANDISING MANAGER, HONEY S 458.9 HYPOTENSION UNSPECIFIED 04/16/2014 BRISEYDA ONLINE MERCHANDISING MANAGER, HONEY S 346.90 HEADACHE, MIGRAINE 04/16/2014 BRISEYDA ASTORGAN, HONEY S V76.10 BREAST CANCER SCREENING 04/16/2014 BRISEYDA ASTORGAN, HONEY S 346.90 HEADACHE, MIGRAINE 04/16/2014 BRISEYDA ONLINE MERCHANDISING MANAGER, HONEY S V76.10 BREAST CANCER SCREENING 04/16/2014 TIMBO ONLINE MERCHANDISING MANAGER, LEAH R 346.90 HEADACHE, MIGRAINE 04/16/2014 TIMBO ONLINE MERCHANDISING MANAGER, LEAH R V76.10 BREAST CANCER SCREENING 04/16/2014 BRISEYDA ONLINE MERCHANDISING MANAGER, HONEY S 346.90 HEADACHE, MIGRAINE 04/16/2014 BRISEYDA ONLINE MERCHANDISING MANAGER, HONEY S V76.10 BREAST CANCER SCREENING 04/16/2014 TIMBO ONLINE MERCHANDISING MANAGER, LEAH R 346.90 HEADACHE, MIGRAINE 04/16/2014 TIMBO ONLINE MERCHANDISING MANAGER, LEAH R V76.10 BREAST CANCER SCREENING 04/16/2014 CUELLAR DO LAMBERTO K 346.90 HEADACHE, MIGRAINE 04/16/2014 CUELLAR DO LAMBERTO K V76.10 BREAST CANCER SCREENING 04/16/2014 ALEXEY RAIN APRNNDA S 346.90 HEADACHE, MIGRAINE 04/16/2014 ALEXEY RAIN APRNNDA S V76.10 BREAST CANCER SCREENING 06/20/2014 TIMBO ONLINE MERCHANDISING MANAGER, LEAH R 786.2 COUGH 06/20/2014 ALEXEY RAIN APRNNDA S 786.2 COUGH 06/20/2014 TIMBO ONLINE MERCHANDISING MANAGER, LEAH R 786.2 COUGH 06/20/2014 CUELLAR DO, LAMBERTO K 786.2 COUGH 06/20/2014 ALEXEY RAIN APRNNDA S 786.2 COUGH 09/09/2014 POLO DO LAMBERTO K 112.0 CANDIDIASIS OF MOUTH 09/09/2014 POLO WEST LAMBERTO K 461.9 SINUSITIS ACUTE 09/09/2014 POLO WEST LAMBERTO K 466.0 BRONCHITIS, ACUTE 09/09/2014 ALEXEY RAIN APRNNDA S 112.0 CANDIDIASIS OF MOUTH 09/09/2014 ALEXEY RAIN APRNNDA S 461.9 SINUSITIS ACUTE 09/09/2014 ALEXEY RAIN APRNNDA S 466.0 BRONCHITIS, ACUTE 11/09/2014 MONY CHAO MD Ot 490 BRONCHITIS NOS 11/09/2014 MONY CHAO MD Ot 733.6 TIETZE'S DISEASE 11/09/2014 MONY CHAO MD Ot 786.50 CHEST PAIN NOS 11/12/2014 HONEY RAIN APRN S 786.50 CHEST PAIN 11/12/2014 ALEXEY RAIN APRNNDA S V19.8 FAMILY HISTORY OF OTHER CONDITION 01/27/2015 ROYAL SAUER FACC, ALEKSEY FACP CCDS Ot 305.1 TOBACCO USE DISORDER 01/27/2015 ROYAL SAUER FACC, ALEKSEY FACP CCDS Ot 401.9 HYPERTENSION NOS 01/27/2015 ROYAL SAUER FACC, ALEKSEY FACP CCDS Ot 729.81 SWELLING OF LIMB 01/27/2015 ROYAL SAUER FACC, ALEKSEY FACP CCDS Ot 786.09 RESPIRATORY ABNORM NEC 01/27/2015 ROYAL SAUER FACC, ALEKSEY FACP CCDS Ot 786.59 CHEST PAIN NEC 01/27/2015 ROYAL SAUER FACC, ALEKSEY FACP CCDS Ot V58.69 OTH MED,LT,CURRENT USE 04/01/2015 ROYAL SAUER FACC, ALEKSEY FACP CCDS Ot 729.81 04/13/2015 ROYAL SAUER FACC, ALEKSEY FACP CCDS Ot 729.81 05/08/2015 Ot 311 05/08/2015 Ot 401.9 05/08/2015 Ot 496 05/08/2015 Ot 530.81 05/08/2015 Ot 716.90 05/08/2015 Ot 780.59 05/08/2015 Ot 305.1 05/08/2015 Ot 496 05/08/2015 Ot 401.9 05/08/2015 Ot 496 05/08/2015 Ot 780.93 05/08/2015 Ot 791.9 05/08/2015 Ot V58.69 05/08/2015 Ot 347.00 05/08/2015 Ot 401.9 05/08/2015 Ot 433.30 05/08/2015 Ot 496 05/08/2015 Ot 719.45 05/08/2015 Ot 593.9 05/08/2015 Ot 721.3 05/08/2015 Ot 791.9 05/08/2015 Ot 959.19 05/08/2015 Ot E000.8 05/08/2015 Ot E849.0 05/08/2015 Ot E928.9 05/08/2015 Ot V76.12 05/08/2015 Ot V76.12 05/08/2015 Ot V12.72 05/08/2015 Ot V76.51 05/08/2015 Ot 272.4 05/08/2015 Ot 338.29 05/08/2015 Ot 401.9 05/08/2015 Ot 496 05/08/2015 Ot 780.4 05/08/2015 Ot 780.79 05/08/2015 Ot V58.69 05/08/2015 Ot V76.12 05/08/2015 Ot 250.02 05/08/2015 Ot V58.69 05/08/2015 Ot 496 05/08/2015 Ot 719.45 05/08/2015 Ot 722.52 05/08/2015 Ot 753.10 05/08/2015 Ot 789.09 05/08/2015 HONEY RAIN Ot V76.12 05/08/2015 ROYAL SAUER FACC, ALEKSEY WATTS CCDS Ot 729.81 05/28/2015 HONEY RAIN Ot Z12.31 08/27/2015 FOZIA SAUER, LANETTE Luisito Ot I10 ESSENTIAL (PRIMARY) HYPERTENSION 08/27/2015 FOZIA SAUER, LANETTE Luisito Ot Z53.21 PROC/TRTMT NOT CRD OUT D/T PT LV BEF SEE 03/30/2016 PREETHI RENDON [employer] PROFESSIONAL Ot I10 ESSENTIAL (PRIMARY) HYPERTENSION 03/30/2016 PREETHI RENDON [employer] SEC[employer] PROFESSIONAL Ot I73.9 PERIPHERAL VASCULAR DISEASE, UNSPECIFIED 03/30/2016 PREETHI RENDON [employer] SECONDARY PROFESSIONAL Ot J44.9 CHRONIC OBSTRUCTIVE PULMONARY DISEASE, U 04/20/2016 Ot V76.12 OTH SCREEN MAMMO-MALIGN NEOPLASM OF YADIRA 04/20/2016 Ot V12.72 PERSONAL HISTORY OF COLONIC POLYPS 04/20/2016 Ot V76.51 SCREEN MAL NEOP-COLON 04/20/2016 Ot 272.4 HYPERLIPIDEMIA NEC/NOS 04/20/2016 Ot 338.29 OTHER CHRONIC PAIN 04/20/2016 Ot 401.9 HYPERTENSION NOS 04/20/2016 Ot 496 CHR AIRWAY OBSTRUCT NEC 04/20/2016 Ot 780.4 DIZZINESS AND GIDDINESS 04/20/2016 Ot 780.79 OTH MALAISE FATIGUE 04/20/2016 Ot V58.69 OTH MED,LT,CURRENT USE 04/20/2016 Ot V76.12 OTH SCREEN MAMMO-MALIGN NEOPLASM OF YADIRA 04/20/2016 Ot 250.02 DIAB MK WO COMPL, TYPE II OR UNSPEC TY 04/20/2016 Ot V58.69 OTH MED,LT,CURRENT USE 04/20/2016 Ot 496 CHR AIRWAY OBSTRUCT NEC 04/20/2016 Ot 719.45 JOINT PAIN-PELVIS 04/20/2016 Ot 722.52 LUMB/LUMBOSAC DISC DEGEN 04/20/2016 Ot 753.10 CYSTIC KIDNEY DISEASE, UNSPECIFIED 04/20/2016 Ot 789.09 ABDOMINAL PAIN, OTHER SPECIFIED SITE 04/20/2016 HONEY RAIN Ot V76.12 OTH SCREEN MAMMO-MALIGN NEOPLASM OF YADIRA 04/20/2016 ROYAL SAUER FAC, ALEKSEY WATTS CCDS Ot 729.81 SWELLING OF LIMB 04/20/2016 HONEY RAIN ARACELI Ot Z12.31 ENCNTR SCREEN MAMMOGRAM FOR MALIGNANT NE 04/20/2016 ILDEFONSO BURCH DO Ot Z01.818 ENCOUNTER FOR OTHER PREPROCEDURAL EXAMIN 04/20/2016 PREETHI RENDON Ot I10 ESSENTIAL (PRIMARY) HYPERTENSION 04/20/2016 PREETHI RENDONP Ot I73.9 PERIPHERAL VASCULAR DISEASE, UNSPECIFIED 04/20/2016 PREETHI RENDON Ot J44.9 CHRONIC OBSTRUCTIVE PULMONARY DISEASE, U 04/20/2016 IVETTE JACKSON DO Ot I10 ESSENTIAL (PRIMARY) HYPERTENSION 04/20/2016 IVETTE JACKSON DO, Ot J44.9 CHRONIC OBSTRUCTIVE PULMONARY DISEASE, U 04/20/2016 IVETTE JACKSON DO Ot M79.89 OTHER SPECIFIED SOFT TISSUE DISORDERS 04/20/2016 IVETTE JACKSON DO Ot S40.862A INSECT BITE (NONVENOMOUS) OF LEFT UPPER 04/20/2016 IVETTE JACKSON DO Ot W57.XXXA BIT/STUNG BY NONVENOM INSECT OTH NONVE 04/20/2016 IVETTE JACKSON DO Ot Y92.[address] [facility] ( [facility] 04/20/2016 IVETTE JACKSON DO Ot Y99.8 OTHER EXTERNAL CAUSE STATUS 04/20/2016 IVETTE JACKSON DO Ot Z79.899 OTHER HAND PICKER (CURRENT) DRUG THERAPY 04/21/2016 IVETTE JACKSON DO Ot I10 ESSENTIAL (PRIMARY) HYPERTENSION 04/21/2016 IVETTE JACKSON DO, Ot J44.9 CHRONIC OBSTRUCTIVE PULMONARY DISEASE, U 04/21/2016 IVETTE JACKSON DO Ot M79.89 OTHER SPECIFIED SOFT TISSUE DISORDERS 04/21/2016 IVETTE JACKSON DO Ot S40.862A INSECT BITE (NONVENOMOUS) OF LEFT UPPER 04/21/2016 IVETTE JACKSON DO Ot W57.XXXA BIT/STUNG BY NONVENOM INSECT OTH NONVE 04/21/2016 IVETTE JACKSON DO Ot Y92.[address] IN [facility] NON-[facility] ( [facility] 04/21/2016 IVETTE JACKSON DO Ot Y99.8 OTHER EXTERNAL CAUSE STATUS 04/21/2016 IVETTE JACKSON DO Ot Z79.899 OTHER HAND PICKER (CURRENT) DRUG THERAPY 04/21/2016 PREETHI RENDONP Ot I10 ESSENTIAL (PRIMARY) HYPERTENSION 04/21/2016 PREETHI RENDONP Ot I73.9 PERIPHERAL VASCULAR DISEASE, UNSPECIFIED 04/21/2016 PREETHI RENDONP Ot J44.9 CHRONIC OBSTRUCTIVE PULMONARY DISEASE, U 04/25/2016 Ot V76.12 OTH SCREEN MAMMO-MALIGN NEOPLASM OF [place]IRA 04/25/2016 Ot V12.72 PERSONAL HISTORY OF COLONIC POLYPS 04/25/2016 Ot V76.51 SCREEN MAL NEOP-COLON 04/25/2016 Ot 272.4 HYPERLIPIDEMIA NEC/NOS 04/25/2016 Ot 338.29 OTHER CHRONIC PAIN 04/25/2016 Ot 401.9 HYPERTENSION NOS 04/25/2016 Ot 496 CHR AIRWAY OBSTRUCT NEC 04/25/2016 Ot 780.4 DIZZINESS AND GIDDINESS 04/25/2016 Ot 780.79 OTH MALAISE FATIGUE 04/25/2016 Ot V58.69 OTH MED,LT,CURRENT USE 04/25/2016 Ot V76.12 OTH SCREEN MAMMO-MALIGN NEOPLASM OF [place]IRA 04/25/2016 Ot 250.02 DIAB MK WO COMPL, TYPE II OR UNSPEC TY 04/25/2016 Ot V58.69 OTH MED,LT,CURRENT USE 04/25/2016 Ot 496 CHR AIRWAY OBSTRUCT NEC 04/25/2016 Ot 719.45 JOINT PAIN-PELVIS 04/25/2016 Ot 722.52 LUMB/LUMBOSAC DISC DEGEN 04/25/2016 Ot 753.10 CYSTIC KIDNEY DISEASE, UNSPECIFIED 04/25/2016 Ot 789.09 ABDOMINAL PAIN, OTHER SPECIFIED SITE 04/25/2016 HONEY RAIN Ot V76.12 OTH SCREEN MAMMO-MALIGN NEOPLASM OF [place] 04/25/2016 ROYAL SAUER FACC, ALEKSEY FACP CCDS Ot 729.81 SWELLING OF LIMB 04/25/2016 HONEY RAIN Ot Z12.31 ENCNTR SCREEN MAMMOGRAM FOR MALIGNANT NE 04/25/2016 ILDEFONSO BUCRH DO Ot Z01.818 ENCOUNTER FOR OTHER PREPROCEDURAL EXAMIN 04/25/2016 PREETHI RENDONP Ot I10 ESSENTIAL (PRIMARY) HYPERTENSION 04/25/2016 PREETHI RENDON [employer]ESSIONAL Ot I73.9 PERIPHERAL VASCULAR DISEASE, UNSPECIFIED 04/25/2016 PREETHI RENDON [employer]ESSION[employer] Ot J44.9 CHRONIC OBSTRUCTIVE PULMONARY DISEASE, U 04/29/2016 PREETHI RENDON [employer]ESSION[employer] Ot I10 ESSENTIAL (PRIMARY) HYPERTENSION 04/29/2016 PREETHI RENDON [employer] PROFESSIONAL Ot I73.9 PERIPHERAL VASCULAR DISEASE, UNSPECIFIED 04/29/2016 PREETHI RENDONP Ot J44.9 CHRONIC OBSTRUCTIVE PULMONARY DISEASE, U 06/21/2016 BRISEYDA HONEY [employer] PROFESSIONAL Ot Z12.31 ENCNTR SCREEN MAMMOGRAM FOR MALIGNANT NE 06/22/2016 HONEY RAIN [employer] PROFESSIONAL Ot Z12.31 ENCNTR SCREEN MAMMOGRAM FOR MALIGNANT NE 06/22/2016 BRISEYDAHONEY MARCELINO [employer] PROFESSIONAL Ot Z12.31 ENCNTR SCREEN MAMMOGRAM FOR MALIGNANT NE 07/12/2016 HONEY RAIN [employer] PROFESSIONAL Ot Z12.31 ENCNTR SCREEN MAMMOGRAM FOR MALIGNANT NE 07/26/2016 HONEY RAIN [employer] PROFESSIONAL Ot Z12.31 ENCNTR SCREEN MAMMOGRAM FOR MALIGNANT NE 11/16/2016 Ot V12.72 PERSONAL HISTORY OF COLONIC POLYPS 11/16/2016 Ot V76.51 SCREEN MAL NEOP-COLON 11/16/2016 Ot 272.4 HYPERLIPIDEMIA NEC/NOS 11/16/2016 Ot 338.29 OTHER CHRONIC PAIN 11/16/2016 Ot 401.9 HYPERTENSION NOS 11/16/2016 Ot 496 CHR AIRWAY OBSTRUCT NEC 11/16/2016 Ot 780.4 DIZZINESS AND GIDDINESS 11/16/2016 Ot 780.79 OTH MALAISE FATIGUE 11/16/2016 Ot V58.69 OTH MED,LT,CURRENT USE 11/16/2016 Ot V76.12 OTH SCREEN MAMMO-MALIGN NEOPLASM OF [place]ADIRA 11/16/2016 Ot 250.02 DIAB MK WO COMPL, TYPE II OR UNSPEC TY 11/16/2016 Ot V58.69 OTH MED,LT,CURRENT USE 11/16/2016 Ot 496 CHR AIRWAY OBSTRUCT NEC 11/16/2016 Ot 719.45 JOINT PAIN-PELVIS 11/16/2016 Ot 722.52 LUMB/LUMBOSAC DISC DEGEN 11/16/2016 Ot 753.10 CYSTIC KIDNEY DISEASE, UNSPECIFIED 11/16/2016 Ot 789.09 ABDOMINAL PAIN, OTHER SPECIFIED SITE 11/16/2016 HONEY RAIN Ot V76.12 OTH SCREEN MAMMO-MALIGN NEOPLASM OF Y[place]IRA 11/16/2016 ROYAL SAUER FACC, ALEKSEY WATTS CCDS Ot 729.81 SWELLING OF LIMB 11/16/2016 HONEY RAIN Ot Z12.31 ENCNTR SCREEN MAMMOGRAM FOR MALIGNANT NE 11/16/2016 ILDEFONSO BURCH DO Ot Z01.818 ENCOUNTER FOR OTHER PREPROCEDURAL EXAMIN 11/16/2016 PREETHI RENDON [employer]ESSION[employer] Ot I10 ESSENTIAL (PRIMARY) HYPERTENSION 11/16/2016 PREETHI RENDON [employer]ESSION[employer] Ot I73.9 PERIPHERAL VASCULAR DISEASE, UNSPECIFIED 11/16/2016 PREETHI RENDON Ot J44.9 CHRONIC OBSTRUCTIVE PULMONARY DISEASE, U 11/16/2016 HONEY RAIN Ot Z12.31 ENCNTR SCREEN MAMMOGRAM FOR MALIGNANT NE 11/16/2016 HONEY RAIN Ot M79.89 OTHER SPECIFIED SOFT TISSUE DISORDERS 11/16/2016 HONEY RAIN [employer] PROFESSIONAL Ot M79.89 OTHER SPECIFIED SOFT TISSUE DISORDERS 12/09/2016 HNOEY RAIN [employer] PROFESSIONAL Ot M79.89 OTHER SPECIFIED SOFT TISSUE DISORDERS 12/21/2016 HONEY RAIN [employer] PROFESSIONAL Ot M79.89 OTHER SPECIFIED SOFT TISSUE DISORDERS 02/10/2017 LENNY BAZZI [employer] PROFESSIONAL Ot E03.9 HYPOTHYROIDISM, UNSPECIFIED 02/10/2017 LENNY BAZZI [employer] PROFESSIONAL Ot F17.210 NICOTINE DEPENDENCE, CIGARETTES, UNCOMPL 02/10/2017 ROSE MARY LENNY [employer] PROFESSIONAL Ot F32.9 MAJOR DEPRESSIVE DISORDER, SINGLE EPISOD 02/10/2017 ROSE MARY LENNY [employer] PROFESSION[employer] Ot G43.909 MIGRAINE, UNSP, NOT INTRACTABLE, WITHOUT 02/10/2017 ROSE MARY LENNY [employer]ESSION[employer] Ot I10 ESSENTIAL (PRIMARY) HYPERTENSION 02/10/2017 LENNY BAZZI [employer] PROFESSIONAL Ot J44.9 CHRONIC OBSTRUCTIVE PULMONARY DISEASE, U 02/10/2017 ROSE MARY LENNY [employer] PROFESSIONAL Ot S70.312A ABRASION, LEFT THIGH, INITIAL ENCOUNTER 02/10/2017 LENNY BAZZI [employer] PROFESSIONAL Ot W22.03XA WALKED INTO FURNITURE, INITIAL ENCOUNTER 02/10/2017 ROSE MARYLENNY Lindsey [employer] PROFESSIONAL Ot Z90.49 ACQUIRED ABSENCE OF OTHER SPECIFIED PART 02/10/2017 ROSE MARYLENNY Lindsey [employer] PROFESSIONAL Ot Z90.710 ACQUIRED ABSENCE OF BOTH CERVIX AND UTER 02/10/2017 ROSE MARYLENNY Lindsey [employer] SEC[employer] PROFESSIONAL Ot Z90.89 ACQUIRED ABSENCE OF OTHER ORGANS 02/11/2017 ROSE MARYLENNY LindseyP Ot E03.9 HYPOTHYROIDISM, UNSPECIFIED 02/11/2017 ROSE MARYLENNY LindseyP Ot F17.210 NICOTINE DEPENDENCE, CIGARETTES, UNCOMPL 02/11/2017 ROSE MARYLENNY Lindsey [employer] PROFESSIONAL Ot F32.9 MAJOR DEPRESSIVE DISORDER, SINGLE EPISOD 02/11/2017 LENNY BAZZIP Ot G43.909 MIGRAINE, UNSP, NOT INTRACTABLE, WITHOUT 02/11/2017 LENNY BAZZIP Ot I10 ESSENTIAL (PRIMARY) HYPERTENSION 02/11/2017 LENNY BAZZIP Ot J44.9 CHRONIC OBSTRUCTIVE PULMONARY DISEASE, U 02/11/2017 LENNY BAZZIP Ot S70.312A ABRASION, LEFT THIGH, INITIAL ENCOUNTER 02/11/2017 LENNY BAZZIP Ot W22.03XA WALKED INTO FURNITURE, INITIAL ENCOUNTER 02/11/2017 ROSE MARYLENNY LindseyP Ot Z90.49 ACQUIRED ABSENCE OF OTHER SPECIFIED PART 02/11/2017 LENNY BAZZIP Ot Z90.710 ACQUIRED ABSENCE OF BOTH CERVIX AND UTER 02/11/2017 ROSE MARYLENNY Lindsey [employer] SEC[employer] PROFESSIONAL Ot Z90.89 ACQUIRED ABSENCE OF OTHER ORGANS Procedures Code Description [place] [address] ROUTINE VENIPUNCTURE 04/01/2013 83955 CMP 04/01/2013 04089 LIPID PANEL 04/01 8349541 GFR CALC (RESULT ONLY) 04/01/2013 41697 CBC 04/01/2013 18798 ROUTINE VENIPUNCTURE 10/15/2013 55203 URINE DRUG SCREEN (IN-HOUSE) 10/15/2013 93845 BMP 10/15/2013 Physical Physical Therapy 01/27/2014 44222 ROUTINE VENIPUNCTURE 02/17/2014 12352 CMP 02/18/2014 [id number] GFR CALC (RESULT ONLY) 02/18/2014 89500 ROUTINE VENIPUNCTURE 03/26/2014 52819 URINE DRUG SCREEN (IN-HOUSE) 03/26/2014 76592 LIPID PANEL 03/26 94515 MAMMOGRAM, SCREENING 04/23/2014 95802 ROUTINE VENIPUNCTURE 04/25/2014 [id number] GFR CALC (RESULT ONLY) 04/25/2014 02825 CMP 04/25/2014 69535 XRAY CHEST 2 VIEW 06/20/2014 99252 ROUTINE VENIPUNCTURE 11/12/2014 58925 LIPID PANEL 11/12 04910 MAGNESIUM 2014 48012 TSH 11/12/2014 Results Test Result Range Complete blood count (CBC) with automated white blood cell (WBC) differential - 04/20/16 20:07 Blood leukocytes automated count (number/volume) 8.2 10*3/ uL 4.3-11.0 Blood erythrocytes automated count (number/volume) 4.46 10*6 /uL 4.35-5.85 Venous blood hemoglobin measurement (mass/volume) 13.1 g/dL 11.5-16.0 Blood hematocrit (volume fraction) 39 % 35-52 Automated erythrocyte mean corpuscular volume 87 [foz_us] 80-99 Automated erythrocyte mean corpuscular hemoglobin (mass per erythrocyte) 29 pg 25-34 Automated erythrocyte mean corpuscular hemoglobin concentration measurement ( mass/volume) 34 g/dL 32-36 Automated erythrocyte distribution width ratio 12.6 % 10.0-14.5 Automated blood platelet count (count/volume) 183 10*3/uL 130-400 Automated blood platelet mean volume measurement 10.2 [foz_ us] 7.4-10.4 Automated blood neutrophils/100 leukocytes 50 % 42-75 Automated blood lymphocytes/100 leukocytes 37 % 12-44 Blood monocytes/100 leukocytes 9 % 0-12 Automated blood eosinophils/100 leukocytes 4 % 0-10 Automated blood basophils/100 leukocytes 0 % 0-10 Blood neutrophils automated count (number/volume) 4.1 10*3 1.8-7.8 Blood lymphocytes automated count (number/volume) 3.0 10*3 1.0-4.0 Blood monocytes automated count (number/volume) 0.7 10*3 0.0-1.0 Automated eosinophil count 0.3 10*3/uL 0.0-0.3 Automated blood basophil count (count/volume) 0.0 10*3/uL 0.0-0.1 PT panel in platelet poor plasma by coagulation assay - 04/20/16 20:07 Prothrombin time (PT) in platelet poor plasma by coagulation assay 13.2 s 12.2-14.7 INR in platelet poor plasma or blood by coagulation assay 1.0 0.8-1.4 Activated partial thromboplastin time (aPTT) in platelet poor plasma bycoagulation assay - 04/20/16 20:07 Activated partial thromboplastin time (aPTT) in platelet poor plasma bycoagulation assay 26 s 24-35 Comprehensive metabolic panel - 04/20/16 20:07 Serum or plasma sodium measurement (moles/volume) 133 mmol/ L 135-145 Serum or plasma potassium measurement (moles/volume) 3.9 mmol/L 3.6-5.0 Serum or plasma chloride measurement (moles/volume) 100 mmol /L 98-107 Carbon dioxide 24 mmol/L 21-32 Serum or plasma anion gap determination (moles/volume) 9 mmol/L 5-14 Serum or plasma urea nitrogen measurement (mass/volume) 11 mg/dL 7-18 Serum or plasma creatinine measurement (mass/volume) 1.05 mg /dL 0.60-1.30 Serum or plasma urea nitrogen/creatinine mass ratio 10 NRG Serum or plasma creatinine measurement with calculation of estimated glomerular filtration rate 55 NRG Serum or plasma glucose measurement (mass/volume) 79 mg/dL 70-105 Serum or plasma calcium measurement (mass/volume) 9.4 mg/dL 8.5-10.1 Serum or plasma total bilirubin measurement (mass/volume) 0.3 mg/dL 0.1-1.0 Serum or plasma alkaline phosphatase measurement (enzymatic activity/volume) 64 U/L 40-136 Serum or plasma aspartate aminotransferase measurement (enzymatic activity/ volume) 17 U/L 5-34 Serum or plasma alanine aminotransferase measurement (enzymatic activity/volume ) 16 U/L 0-55 Serum or plasma protein measurement (mass/volume) 6.7 g/dL 6.4-8.2 Serum or plasma albumin measurement (mass/volume) 4.0 g/dL 3.2-4.5 Encounters ACCT No. Visit Date/Time Discharge Status Pt. Type Provider Facility Loc./Unit Complaint [id number] 11/12/2014 09:09:00 11/12/2014 23: 59:59 [facility] Outpatient HONEY RAIN APRN [id number] 09/09/2014 13:56:00 09/09/2014 23: 59:59 [facility] Outpatient LAMBERTO CUELLAR DO [id number] 06/26/2014 09:58:00 06/26/2014 23: 59:59 CLS Outpatient BRISEYDA ONLINE MERCHANDISING MANAGER, HONEY S [id number] 06/20/2014 08:37:00 06/20/2014 23: 59:59 CLS Outpatient TIMBO ONLINE MERCHANDISING MANAGERLEAH R [id number] 06/20/2014 08:37:00 06/20/2014 23: 59:59 CLS Outpatient TIMBO ASTORGANLEAH R [id number] 04/25/2014 08:46:00 04/25/2014 23: 59:59 CLS Outpatient BRISEYDA ONLINE MERCHANDISING MANAGER, HONEY S [id number] 04/16/2014 08:15:00 04/16/2014 23: 59:59 CLS Outpatient BRISEYDA ONLINE MERCHANDISING MANAGER, HONEY S [id number] 03/26/2014 07:57:00 03/26/2014 23: 59:59 CLS Outpatient LAMBERTO CUELLAR DO [id number] 03/03/2014 08:16:00 03/03/2014 23: 59:59 CLS Outpatient DELFIN KEARNS MD [id number] 02/18/2014 13:41:00 02/18/2014 23: 59:59 CLS Outpatient BRISEYDA ONLINE MERCHANDISING MANAGER, HONEY S [id number] 11/21/2013 12:18:00 11/21/2013 23: 59:59 CLS Outpatient BRISEYDA ONLINE MERCHANDISING MANAGER, HONEY S [id number] 11/12/2013 13:48:00 11/12/2013 23: 59:59 CLS Outpatient BRISEYDA ONLINE MERCHANDISING MANAGER, HONEY S [id number] 10/15/2013 15:23:00 10/15/2013 23: 59:59 CLS Outpatient BRISEYDA ONLINE MERCHANDISING MANAGER, HONEY S [id number] 10/15/2013 15:23:00 10/15/2013 23: 59:59 CLS Outpatient BRISEYDA ONLINE MERCHANDISING MANAGER, HONEY S [id number] 06/24/2013 09:37:00 06/24/2013 23: 59:59 CLS Outpatient DELFIN KEARNS MD [id number] 04/01/2013 10:31:00 04/01/2013 23: 59:59 CLS Outpatient BRISEYDA ONLINE MERCHANDISING MANAGER, HONEY S [id number] 04/01/2013 10:31:00 04/01/2013 23: 59:59 CLS Outpatient LAMBERTO CUELLAR DO
== END 2017-02-08 15:16 | disposition home or self-care (01) ==
LOC: EDUNIT# 14:11 → ER 14:14
DX: S70.312A Abrasion, left thigh, initial encounter (principal); F32.9 Major depressive disorder, single episode, unspecified; E03.9 Hypothyroidism, unspecified; G43.909 Migraine, unspecified, not intractable, without status migrainosus; I10 Essential (primary) hypertension; J44.9 Chronic obstructive pulmonary disease, unspecified; F17.210 Nicotine dependence, cigarettes, uncomplicated; Z90.710 Acquired absence of both cervix and uterus; Z90.49 Acquired absence of other specified parts of digestive tract; Z90.89 Acquired absence of other organs; W22.03XA Walked into furniture, initial encounter
CPT/HCPCS: 90471; 90715; 99284

== ENCOUNTER → 2017-05-19 | Outpatient (CLI) | payer MEDICARE, MEDICAID ==
[~2017-05-19] MED LIST changes: +MUPI15CR11 TP
== END ==
LOC: CARD 12:49
PROVIDERS: ATTEND Nurse Practitioner Family
DX: I34.0 Nonrheumatic mitral (valve) insufficiency (principal); I07.1 Rheumatic tricuspid insufficiency; R06.09 Other forms of dyspnea; I65.23 Occlusion and stenosis of bilateral carotid arteries; I70.213 Atherosclerosis of native arteries of extremities with intermittent claudication, bilateral legs; I27.20 Pulmonary hypertension, unspecified
CPT/HCPCS: 93306

== ENCOUNTER 2017-08-24 14:53 | Observation (INO) | payer MEDICARE, MEDICAID ==
[~2017-08-24] VITALS: Ht 162.6 cm; Wt 69.9 kg
--- OUTSIDE RECORDS SUMMARY | 2017-08-24 15:00 | XMS REPORT ---
Author Author HONEY RAIN [facility] Address [address] [place] [address] Care Team Providers Care Rehabilitation Consultant Name Role Phone HONEY RAIN Unavailable PROBLEMS Type Condition ICD9-CM Code [id number] Code Onset Dates Condition Status SNOMED Code Problem Low back pain M54.5 Active 769856127 Problem Migraine, unspecified, not intractable, without status migrainosus G43.909 Active 00522608 Problem Chronic obstructive pulmonary disease, unspecified J44.9 Active 55066302 Problem Acquired deafness of left ear H91.92 Active 91724915 Problem Family history of early CAD Z82.49 Active 626653341 Problem Gastroesophageal reflux disease without esophagitis K21.9 Active 926449373 Problem COPD exacerbation J44.1 Active 983836296 Problem Nicotine dependence, unspecified, uncomplicated F17.200 Active 121055928 Problem Headache R51 Active 02668094 Problem Anxiety F41.9 Active 06739036 Problem Essential (primary) hypertension I10 Active 22100182 ALLERGIES Substance Reaction Event Type Date Status Symbicort Unknown Drug Allergy Oct, Active Mobic Unknown Drug Allergy Oct, Active Gabapentin rash Drug Allergy Oct, Active Benadryl Unknown Drug Allergy Oct, Active Amoxicillin Unknown Drug Allergy Oct, Active Neurontin 100 Mg Capsule makes her feel drunk Non Drug Allergy Oct, Active Penicillins Unknown Non Drug Allergy Oct, Active SOCIAL HISTORY Never Assessed PLAN OF CARE Activity Details Follow Up 3 Months Reason:BP VITAL SIGNS Height 62 in 2016-11-16 Weight 152 lbs 2016-11-16 Temperature 97.0 degrees Fahrenheit 2016-11-16 Heart Rate 66 bpm 2016-11-16 Respiratory Rate 18 2016-11-16 BMI 27.80 kg/m2 2016-11-16 Blood pressure systolic 126 mmHg 2016-11-16 Blood pressure diastolic 82 mmHg 2016-11-16 MEDICATIONS Medication Instructions Dosage Frequency Start Date End Date Duration Status Spiriva HandiHaler 18 INHALE ONE CAPSULE BY MOUTH DAILY USING HANDIHALER DEVICE 90 Active Aspir-81 81 MG Orally Once a day 1 tablet 24h Active Breo Ellipta 100-25 MCG/INH Inhalation Once a day 1 puff 24h Oct, Active Omeprazole 20 mg Orally twice a day 1 capsule 12h Sep, 90 days Active Amlodipine Besylate 10 MG Orally Once a day 1 tablet 24h Active Tylenol 325 MG Orally every 6 hrs 1 tablet as needed 6h Active Metoprolol Tartrate 25 MG Orally Twice a day TAKE 1 TABLET TWICE DAILY 12h 90 Active Ipratropium-Albuterol 0.5-2.5 (3) MG/3ML Inhalation Four times a day As Needed 3 ml Jan, Active Lisinopril 20 MG TAKE 1 TABLET ONE TIME DAILY 90 Active Ventolin HFA 108 (90 Base) MCG/ACT Inhalation every 4 hrs 2 puffs as needed for cough or wheeze 4h Sep, 90 days Active RESULTS No Results PROCEDURES Procedure Date Ordered Result Body Site [facility] VISIT ESTABLISHED PATIENT November 16, 2016 IMMUNIZATIONS No Known Immunizations MEDICAL (GENERAL) HISTORY Type Description Date Medical History Deaf in left ear Medical History Hypertension Medical History Asthma-Sleep study 12/2009-[facility] Medical History Post cholecystectomy-1986 Medical History Heart cath Surgical History Hysterectomy 1993 Surgical History section 1986 & 1987 Surgical History Thyroid surgery Surgical History Heart cath 01/27/2015 Surgical History Gall bladder removal Surgical History Colonoscopy 12/2007 Hospitalization History surgeries
--- OUTSIDE RECORDS SUMMARY | 2017-08-24 15:00 | XMS REPORT ---
Author Author HONEY RAIN [facility] Address [address] [place] [address] Care Team Providers Care Lab Asst Name Role Phone HONEY RAIN Unavailable PROBLEMS Type Condition ICD9-CM Code [id number] Code Onset Dates Condition Status SNOMED Code Problem Low back pain M54.5 Active 572963529 Problem Migraine, unspecified, not intractable, without status migrainosus G43.909 Active 44589597 Problem Chronic obstructive pulmonary disease, unspecified J44.9 Active 17664993 Problem Acquired deafness of left ear H91.92 Active 52869526 Problem Family history of early CAD Z82.49 Active 160826278 Problem Gastroesophageal reflux disease without esophagitis K21.9 Active 121295509 Problem COPD exacerbation J44.1 Active 136047931 Problem Nicotine dependence, unspecified, uncomplicated F17.200 Active 616056971 Problem Headache R51 Active 24507588 Problem Anxiety F41.9 Active 47387602 Problem Essential (primary) hypertension I10 Active 11523243 ALLERGIES No Information SOCIAL HISTORY Never Assessed PLAN OF CARE VITAL SIGNS MEDICATIONS Unknown Medications RESULTS No Results PROCEDURES No Known procedures IMMUNIZATIONS No Known Immunizations MEDICAL (GENERAL) HISTORY [...]
--- OUTSIDE RECORDS SUMMARY | 2017-08-24 15:00 | XMS REPORT ---
Author Author HONEY RAIN [facility] Address [address] [place] [address] Care Team Providers Care Police Inspector Name Role Phone HONEY RAIN Unavailable PROBLEMS Type Condition ICD9-CM Code [id number] Code Onset Dates Condition Status SNOMED Code Problem Low back pain M54.5 Active 411238077 Problem Migraine, unspecified, not intractable, without status migrainosus G43.909 Active 67896146 Problem Chronic obstructive pulmonary disease, unspecified J44.9 Active 80850280 Problem Acquired deafness of left ear H91.92 Active 71952366 Problem Family history of early CAD Z82.49 Active 182920972 Problem Gastroesophageal reflux disease without esophagitis K21.9 Active 212896733 Problem COPD exacerbation J44.1 Active 556456293 Problem Nicotine dependence, unspecified, uncomplicated F17.200 Active 568900922 Problem Headache R51 Active 48381417 Problem Anxiety F41.9 Active 97296678 Problem Essential (primary) hypertension I10 Active 14006679 ALLERGIES No Information SOCIAL HISTORY Never Assessed PLAN OF CARE VITAL SIGNS MEDICATIONS Medication Instructions Dosage Frequency Start Date End Date Duration Status Metoprolol Tartrate 25 MG Orally Twice a day 1 tablet 12h 90 days Active RESULTS No Results PROCEDURES No Known procedures [...]
--- OUTSIDE RECORDS SUMMARY | 2017-08-24 15:01 | XMS REPORT ---
Author Author HONEY RAIN [facility] Address [address] [place] [address] Care Team Providers Care Orthotic Fitter Name Role Phone HONEY RAIN Unavailable PROBLEMS Type Condition ICD9-CM Code [id number] Code Onset Dates Condition Status SNOMED Code Problem Low back pain M54.5 Active 840769214 Problem Migraine, unspecified, not intractable, without status migrainosus G43.909 Active 61478307 Problem Chronic obstructive pulmonary disease, unspecified J44.9 Active 02427766 Problem Acquired deafness of left ear H91.92 Active 35398650 Problem Family history of early CAD Z82.49 Active 534259774 Problem Gastroesophageal reflux disease without esophagitis K21.9 Active 955263414 Problem COPD exacerbation J44.1 Active 347968624 Problem Nicotine dependence, unspecified, uncomplicated F17.200 Active 883642307 Problem Headache R51 Active 38006019 Problem Anxiety F41.9 Active 39488491 Problem Essential (primary) hypertension I10 Active 98157459 ALLERGIES Substance Reaction Event Type Date Status Symbicort Unknown Drug Allergy Sep, Active Mobic Unknown Drug Allergy Sep, Active Gabapentin rash Drug Allergy Sep, Active Benadryl Unknown Drug Allergy Sep, Active Amoxicillin Unknown Drug Allergy Sep, Active Penicillins Unknown Non Drug Allergy Sep, Active Neurontin 100 Mg Capsule makes her feel drunk Non Drug Allergy Sep, Active SOCIAL HISTORY Never Assessed PLAN OF CARE Activity Details Follow Up 4 Weeks Reason:BP VITAL SIGNS Height 62 in 2016-09-21 Weight 157.6 lbs 2016-09-21 Temperature 97.9 degrees Fahrenheit 2016-09-21 Heart Rate 64 bpm 2016-09-21 Respiratory Rate 20 2016-09-21 Oximetry on room air:96 % 2016-09-21 BMI 28.82 kg/m2 2016-09-21 Blood pressure systolic 110 mmHg 2016-09-21 Blood pressure diastolic 80 mmHg 2016-09-21 MEDICATIONS Medication Instructions Dosage Frequency Start Date End Date Duration Status Omeprazole 20 mg Orally twice a day 1 capsule 12h Sep, 90 days Active Lisinopril 20 MG TAKE 1 TABLET ONE TIME DAILY 90 Active Ventolin HFA 108 (90 Base) MCG/ACT Inhalation every 4 hrs 2 puffs as needed 4h Sep, 30 days Active Spiriva HandiHaler 18 INHALE ONE CAPSULE BY MOUTH DAILY USING HANDIHALER DEVICE 90 Active Metoprolol Tartrate 25 MG Orally Twice a day TAKE 1 TABLET TWICE DAILY 12h 90 Active Ipratropium-Albuterol 0.5-2.5 (3) MG/3ML Inhalation Four times a day As Needed 3 ml Jan, Active Aspir-81 81 MG Orally Once a day 1 tablet 24h Active Amlodipine Besylate 10 MG Orally Once a day 1 tablet 24h Active Breo Ellipta 100-25 MCG/INH Inhalation Once a day 1 puff 24h Oct, Active Tylenol 325 MG Orally every 6 hrs 1 tablet as needed 6h Active RESULTS Name Result Date Reference Range LIPID PANEL 2016-09-21 Cholesterol, Total 139 100-199 Triglycerides 96 0-149 HDL Cholesterol 51 >39 VLDL Cholesterol Larry 19 5-40 LDL Cholesterol Calc 69 0-99 Comment: CMP 2016-09-21 Glucose, Serum 88 65-99 BUN 13 6-24 Creatinine, Serum 1.31 0.57-1.00 eGFR If NonAfricn Am 46 >59 eGFR If Africn Am 53 >59 BUN/Creatinine Ratio 10 9-23 Sodium, Serum 136 134-144 Potassium, Serum 4.7 3.5-5.2 Chloride, Serum 94 96-106 Carbon Dioxide, Total 26 18-29 Calcium, Serum 9.5 8.7-10.2 Protein, Total, Serum 7.0 6.0-8.5 Albumin, Serum 4.4 3.5-5.5 Globulin, Total 2.6 1.5-4.5 A/G Ratio 1.7 1.1-2.5 Bilirubin, Total 0.3 0.0-1.2 Alkaline Phosphatase, S 84 39-117 AST (SGOT) 12 0-40 ALT (SGPT) 11 0-32 PROCEDURES Procedure Date Ordered Result Body Site MEASURE BLOOD OXYGEN LEVEL September 21, 2016 LAB NOT BILLED BY [facility] September 21, 2016 [facility] VISIT ESTABLISHED PATIENT September 21, 2016 VENIPUNCT, ROUTINE* September 21, 2016 IMMUNIZATIONS No Known Immunizations MEDICAL (GENERAL) [...]
--- OUTSIDE RECORDS SUMMARY | 2017-08-24 15:02 | XMS REPORT ---
Author Author HONEY RAIN [facility] Address [address] [place] [address] Care Team Providers Care Digitizer Name Role Phone HONEY RAIN Unavailable PROBLEMS Type Condition ICD9-CM Code [id number] Code Onset Dates Condition Status SNOMED Code Problem Low back pain M54.5 Active 572875179 Problem Migraine, unspecified, not intractable, without status migrainosus G43.909 Active 50578427 Problem Chronic obstructive pulmonary disease, unspecified J44.9 Active 74818428 Problem Acquired deafness of left ear H91.92 Active 02559478 Problem Family history of early CAD Z82.49 Active 148133648 Problem Gastroesophageal reflux disease without esophagitis K21.9 Active 766402541 Problem COPD exacerbation J44.1 Active 231742791 Problem Nicotine dependence, unspecified, uncomplicated F17.200 Active 527216107 Problem Headache R51 Active 78375987 Problem Anxiety F41.9 Active 37168570 Problem Essential (primary) hypertension I10 Active 80971929 ALLERGIES No Information SOCIAL HISTORY Never Assessed PLAN OF CARE VITAL SIGNS MEDICATIONS Medication Instructions Dosage Frequency Start Date End Date Duration Status Ventolin HFA 108 (90 Base) MCG/ACT Inhalation [...]
--- OUTSIDE RECORDS SUMMARY | 2017-08-24 15:03 | XMS REPORT | Continuity of Care Document ---
Author Author Formerly [facility] Address Unknown Phone Unavailable Allergies Active Description Code Type Severity Reaction Onset Reported/Identified Relationship to Patient Clinical Status Yes amoxicillin [id number] Drug Allergy Unknown N/A 03/26/2008 Yes diphenhydramine [id number] Drug Allergy Unknown N/A 03/26/2008 Yes Amoxicillin Drug Allergy N/A N/A 01/31/2013 Yes Benadryl Drug Allergy N/A N/A 01/31/2013 Yes Mobic Drug Allergy N/A N/A 06/24/2013 Yes Penicillins Drug Allergy N/A N/A 06/24/2013 Yes Symbicort Drug Allergy N/A N/A 11/12/2013 Yes Neurontin 100 mg capsule Drug Allergy N/A N/A 01/21/2014 Yes gabapentin [id number] Drug Allergy Unknown N/A 11/09/2014 Medications There is no data. Problems Date Dx Coded Attending Type Code [...] 10/15/2010 Ot 492.8 08/16/2012 Ot 719.45 JOINT PAIN- PELVIS 08/16/2012 Ot 722.52 LUMB/ LUMBOSAC DISC DEGEN 08/16/2012 Ot V57.1 PHYSICAL THERAPY NEC 01/14/2013 VICKI WALL Ot 491.21 OBSTR CHRONIC BRONCHITIS, W (ACUTE) EXAC 01/14/2013 VICKI WALL Ot 780.2 SYNCOPE AND COLLAPSE 01/31/2013 BRISEYDA MEAT STOCKER, HONEY S 338.29 CHRONIC PAIN 01/31/2013 BRISEYDA MEAT STOCKER, HONEY S 401.1 ESSENTIAL HYPERTENSION BENIGN 01/31/2013 BRISEYDA MEAT STOCKER, HONEY S 496 CHRONIC OBSTRUCTIVE PULMONARY DISEASE 01/31/2013 BRISEYDA MEAT STOCKER, HONEY S 780.2 fainting (syncope) 01/31/2013 BRISEYDA MEAT STOCKER, HONEY S V70.0 NORMAL ROUTINE HISTORY AND [...] NORMAL ROUTINE HISTORY AND PHYSICAL 01/31/2013 BRISEYDA MEAT STOCKER, HONEY S 338.29 CHRONIC PAIN 01/31/2013 BRISEYDA MEAT STOCKER, HONEY S 401.1 ESSENTIAL HYPERTENSION BENIGN 01/31/2013 BRISEYDA MEAT STOCKER, HONEY S 496 CHRONIC OBSTRUCTIVE PULMONARY DISEASE 01/31/2013 BRISEYDA MEAT STOCKER, HONEY S 780.2 fainting (syncope) 01/31/2013 BRISEYDA MEAT STOCKER, HONEY S V70.0 NORMAL ROUTINE HISTORY AND PHYSICAL 01/31/2013 BRISEYDA MEAT STOCKER, HONEY S 338.29 CHRONIC PAIN 01/31/2013 BRISEYDA MEAT STOCKER, HONEY S 401.1 ESSENTIAL HYPERTENSION BENIGN 01/31/2013 BRISEYDA MEAT STOCKER, HONEY S 496 CHRONIC OBSTRUCTIVE PULMONARY DISEASE 01/31/2013 BRISEYDA MEAT STOCKER, HONEY S 780.2 fainting (syncope) 01/31/2013 BRISEYDA MEAT STOCKER, HONEY S V70.0 NORMAL ROUTINE HISTORY AND PHYSICAL 01/31/2013 BRISEYDA MEAT STOCKER HONEY S 338.29 CHRONIC PAIN 01/31/2013 BRISEYDA MEAT STOCKER, HONEY S 401.1 ESSENTIAL HYPERTENSION BENIGN 01/31/2013 BRISEYDA MEAT STOCKER, HONEY S 496 CHRONIC OBSTRUCTIVE PULMONARY DISEASE 01/31/2013 BRISEYDA MEAT STOCKER, HONEY S 780.2 fainting (syncope) 01/31/2013 BRISEYDA MEAT STOCKER, HONEY S V70.0 NORMAL ROUTINE HISTORY AND PHYSICAL 01/31/2013 BRISEYDA MEAT STOCKER, HONEY S 338.29 CHRONIC PAIN 01/31/2013 BRISEYDA MEAT STOCKER HONEY S 401.1 ESSENTIAL HYPERTENSION BENIGN 01/31/2013 BRISEYDA MEAT STOCKER HONEY S 496 CHRONIC OBSTRUCTIVE PULMONARY DISEASE 01/31/2013 BRISEYDA MEAT STOCKER, HONEY S 780.2 fainting (syncope) 01/31/2013 BRISEYDA MEAT STOCKER, HONEY S V70.0 NORMAL ROUTINE HISTORY AND PHYSICAL 01/31/2013 BRISEYDA MEAT STOCKER, HONEY S 338.29 CHRONIC PAIN 01/31/2013 BRISEYDA MEAT STOCKER, HONEY S 401.1 ESSENTIAL HYPERTENSION BENIGN 01/31/2013 BRISEYDA MEAT STOCKER, HONEY S 496 CHRONIC OBSTRUCTIVE PULMONARY DISEASE 01/31/2013 BRISEYDA MEAT STOCKER, HONEY S 780.2 fainting (syncope) 01/31/2013 BRISEYDA MEAT STOCKER, HONEY S V70.0 NORMAL ROUTINE HISTORY AND [...] K 496 CHRONIC OBSTRUCTIVE PULMONARY DISEASE 01/31/2013 UCELLAR DO, LAMBERTO K 780.2 fainting (syncope) 01/31/2013 CUELLAR DO, LAMBERTO K V70.0 NORMAL ROUTINE HISTORY AND PHYSICAL 01/31/2013 BRISEYDA MEAT STOCKER, HONEY S 338.29 CHRONIC PAIN 01/31/2013 BRISEYDA MEAT STOCKER, HONEY S 401.1 ESSENTIAL HYPERTENSION BENIGN 01/31/2013 BRISEYDA MEAT STOCKER, HONEY S 496 CHRONIC OBSTRUCTIVE PULMONARY DISEASE 01/31/2013 BRISEYDA MEAT STOCKER, HONEY S 780.2 FAINTING (SYNCOPE) 01/31/2013 BRISEYDA MEAT STOCKER, HONEY S V70.0 NORMAL ROUTINE HISTORY AND PHYSICAL 01/31/2013 BRISEYDA MEAT STOCKER, HONEY S 338.29 CHRONIC PAIN 01/31/2013 BRISEYDA MEAT STOCKER, HONEY S 401.1 ESSENTIAL HYPERTENSION BENIGN 01/31/2013 BRISEYDA MEAT STOCKER, HONEY S 496 CHRONIC OBSTRUCTIVE PULMONARY DISEASE 01/31/2013 BRISEYDA MEAT STOCKER, HONEY S 780.2 FAINTING (SYNCOPE) 01/31/2013 BRISEYDA MEAT STOCKER, HONEY S V70.0 NORMAL ROUTINE HISTORY AND PHYSICAL 01/31/2013 TIMBO MEAT STOCKER, LEAH R 338.29 CHRONIC PAIN 01/31/2013 TIMBO MEAT STOCKER, LEAH R 401.1 ESSENTIAL HYPERTENSION BENIGN 01/31/2013 TIMBO MEAT STOCKER, LEAH R 496 CHRONIC OBSTRUCTIVE PULMONARY DISEASE 01/31/2013 TIMBO MEAT STOCKER, LEAH R 780.2 FAINTING (SYNCOPE) 01/31/2013 TIMBO MEAT STOCKER, LEAH R V70.0 NORMAL ROUTINE HISTORY AND PHYSICAL 01/31/2013 BRISEYDA ASTORGAN, HONEY S 338.29 CHRONIC PAIN 01/31/2013 BRISEYDA MEAT STOCKER, HONEY S 401.1 ESSENTIAL HYPERTENSION BENIGN 01/31/2013 BRISEYDA MEAT STOCKER, HONEY S 496 CHRONIC OBSTRUCTIVE PULMONARY DISEASE 01/31/2013 BRISEYDA MEAT STOCKER, HONEY S 780.2 FAINTING (SYNCOPE) 01/31/2013 BRISEYDA MEAT STOCKER, HONEY S V70.0 NORMAL ROUTINE HISTORY AND PHYSICAL 01/31/2013 TIMBO MEAT STOCKER, LEAH R 338.29 CHRONIC PAIN 01/31/2013 TIMBO MEAT STOCKER, LEAH R 401.1 ESSENTIAL HYPERTENSION BENIGN 01/31/2013 TIMBO MEAT STOCKER, LEAH R 496 CHRONIC OBSTRUCTIVE PULMONARY DISEASE 01/31/2013 TIMBO MEAT STOCKER, LEAH R 780.2 FAINTING (SYNCOPE) 01/31/2013 TIMBO MEAT STOCKER, LEAH R V70.0 NORMAL ROUTINE HISTORY AND PHYSICAL 01/31/2013 CUELLAR DO, LAMBERTO K 338.29 CHRONIC PAIN 01/31/2013 CUELLAR DO, LAMBERTO K 401.1 ESSENTIAL HYPERTENSION BENIGN 01/31/2013 CUELLAR DO, LAMBERTO K 496 CHRONIC OBSTRUCTIVE PULMONARY DISEASE 01/31/2013 CUELLAR DO, LAMBERTO K 780.2 FAINTING (SYNCOPE) 01/31/2013 CUELLAR DO, LAMBERTO K V70.0 NORMAL ROUTINE HISTORY AND PHYSICAL 01/31/2013 BRISEYDA MEAT STOCKER, HONEY S 338.29 CHRONIC PAIN 01/31/2013 BRISEYDA MEAT STOCKER, HONEY S 401.1 ESSENTIAL HYPERTENSION BENIGN 01/31/2013 BRISEYDA MEAT STOCKER, HONEY S 496 CHRONIC OBSTRUCTIVE PULMONARY DISEASE 01/31/2013 BRISEYDA MEAT STOCKER, HONEY S 780.2 FAINTING (SYNCOPE) 01/31/2013 BRISEYDA MEAT STOCKER, HONEY S V70.0 NORMAL ROUTINE HISTORY AND PHYSICAL 04/01/2013 BRISEYDA MEAT STOCKER, HONEY S 719.41 joint pain, localized in the shoulder 04/01/2013 POLO WEST LAMBERTO K 719.41 joint pain, localized in the shoulder 04/01/2013 DELFIN KEARNS MD 719.41 joint pain, localized in the shoulder 04/01/2013 BRISEYDA MEAT STOCKER, HONEY S 719.41 joint pain, localized in the shoulder 04/01/2013 BRISEYDA MEAT STOCKER, HONEY S 719.41 joint pain, localized in the shoulder 04/01/2013 BRISEYDA MEAT STOCKER, HONEY S 719.41 joint pain, localized in the shoulder 04/01/2013 BRISEYDA MEAT STOCKER, HONEY S 719.41 joint pain, localized in the shoulder 04/01/2013 BRISEYDA MEAT STOCKER, HONEY S 719.41 joint pain, localized in the shoulder 04/01/2013 DELFIN KEARNS MD 719.41 joint pain, localized in the shoulder 04/01/2013 POLO WEST LAMBERTO K 719.41 joint pain, localized in the shoulder 04/01/2013 BRISEYDA MEAT STOCKER, HONEY S 719.41 joint pain, localized in the shoulder 04/01/2013 BIRSEYDA MEAT STOCKER, HONEY S 719.41 joint pain, localized in the shoulder 04/01/2013 TIMBO MEAT STOCKER, LEAH R 719.41 joint pain, localized in the shoulder 04/01/2013 BRISEYDA MEAT STOCKER, HONEY S 719.41 JOINT PAIN, LOCALIZED IN THE SHOULDER 04/01/2013 TIMBO MEAT STOCKER, LEAH R 719.41 JOINT PAIN, LOCALIZED IN THE SHOULDER 04/01/2013 JESUS CUELLAR DOA K 719.41 JOINT PAIN, LOCALIZED IN THE SHOULDER 04/01/2013 BRISEYDA MEAT STOCKER, HONEY S 719.41 JOINT PAIN, LOCALIZED IN THE SHOULDER 06/03/2013 VICKI WALL Ot 491.21 OBSTR CHRONIC BRONCHITIS, W (ACUTE) EXAC 06/03/2013 VICKI WALL Ot 786.2 COUGH 06/24/2013 DELFIN KEARNS MD 782.1 RASH 06/24/2013 BRISEYDA MEAT STOCKER, HONEY S 782.1 RASH 06/24/2013 BRISEYDA MEAT STOCKER, HONEY S 782.1 RASH 06/24/2013 BRISEYDA MEAT STOCKER, HONEY S 782.1 RASH 06/24/2013 BRISEYDA MEAT STOCKER, HONEY S 782.1 RASH 06/24/2013 BRISEYDA MEAT STOCKER, HONEY S 782.1 RASH 06/24/2013 DELFIN KEARNS MD 782.1 RASH 06/24/2013 LMABERTO CUELLAR DO K 782.1 RASH 06/24/2013 BRISEYDA MEAT STOCKER, HONEY S 782.1 RASH 06/24/2013 BRISEYDA MEAT STOCKER, HONEY S 782.1 RASH 06/24/2013 TIMBO MEAT STOCKER, LEAH R 782.1 RASH 06/24/2013 BRISEYDA MEAT STOCKER, HONEY S 782.1 RASH 06/24/2013 TIMBO MEAT STOCKER, LEAH R 782.1 RASH 06/24/2013 LAMBERTO CUELLAR DO K 782.1 RASH 06/24/2013 BRISEYDA MEAT STOCKER, HONEY S 782.1 RASH 10/15/2013 BRISEYDA MEAT STOCKER, HONEY S 593.9 RENAL INSUFFICIENCY 10/15/2013 BRISEYDA MEAT STOCKER, HONEY S 593.9 RENAL INSUFFICIENCY 10/15/2013 BRISEYDA MEAT STOCKER, HONEY S 593.9 RENAL INSUFFICIENCY 10/15/2013 BRISEYDA MEAT STOCKER, HONEY S 593.9 RENAL INSUFFICIENCY 10/15/2013 BRISEYDA MEAT STOCKER, HONEY S 593.9 RENAL INSUFFICIENCY 10/15/2013 URMILA SAUER, DELFIN 593.9 RENAL INSUFFICIENCY 10/15/2013 CUELLAR DO, LAMBERTO K 593.9 RENAL INSUFFICIENCY 10/15/2013 BRISEYDA MEAT STOCKER, HONEY S 593.9 RENAL INSUFFICIENCY 10/15/2013 BRISEYDA MEAT STOCKER, HONEY S 593.9 RENAL INSUFFICIENCY 10/15/2013 TIMBO MEAT STOCKER, LEAH R 593.9 RENAL INSUFFICIENCY 10/15/2013 BRISEYDA MEAT STOCKER, HONEY S 593.9 RENAL INSUFFICIENCY 10/15/2013 TIMBO MEAT STOCKER, LEAH R 593.9 RENAL INSUFFICIENCY 10/15/2013 CUELLAR DO, LAMBERTO K 593.9 RENAL INSUFFICIENCY 10/15/2013 BRISEYDA MEAT STOCKER, HONEY S 593.9 RENAL INSUFFICIENCY 01/21/2014 BRISEYDA MEAT STOCKER, HONEY S 724.2 BACK PAIN, LOWER 01/21/2014 BRISEYDA MEAT STOCKER, HONEY S 724.2 BACK PAIN, LOWER 01/21/2014 URMILA SAUER, DELFIN 724.2 BACK PAIN, LOWER 01/21/2014 CUELLAR DO, LAMBERTO K 724.2 BACK PAIN, LOWER 01/21/2014 BRISEYDA MEAT STOCKER, HONEY S 724.2 BACK PAIN, LOWER 01/21/2014 BRISEYDA MEAT STOCKER, HONEY S 724.2 BACK PAIN, LOWER 01/21/2014 TIMBO MEAT STOCKER, LEAH R 724.2 BACK PAIN, LOWER 01/21/2014 BRISEYDA MEAT STOCKER, HONEY S 724.2 BACK PAIN, LOWER 01/21/2014 TIMBO MEAT STOCKER, LEAH R 724.2 BACK PAIN, LOWER 01/21/2014 CUELLAR DO, LAMBERTO K 724.2 BACK PAIN, LOWER 01/21/2014 BRISEYDA MEAT STOCKER, HONEY S 724.2 BACK PAIN, LOWER 02/14/2014 URMILA SAUER, DELFIN Heredia Ot 276.50 VOLUME DEPLETION, UNSPECIFIED 02/14/2014 DELFIN KEARNS MD Ot 305.1 TOBACCO USE DISORDER 02/14/2014 DELFIN KEARNS MD Ot 458.9 HYPOTENSION NOS 02/14/2014 DELFIN KEARNS MD Ot 496 CHR AIRWAY OBSTRUCT NEC 02/14/2014 DELFIN KEARNS MD Ot 584.9 ACUTE RENAL FAILURE, UNSPECIFIED 02/14/2014 DELFIN KEARNS MD Ot 585.9 CHRONIC KIDNEY DISEASE, UNSPECIFIED 02/18/2014 BRISEYDA HELLER, HONEY S 458.9 HYPOTENSION UNSPECIFIED 02/18/2014 DELFIN KEARNS MD 458.9 HYPOTENSION UNSPECIFIED 02/18/2014 LAMBERTO CUELLAR DO K 458.9 HYPOTENSION UNSPECIFIED 02/18/2014 BRISEYDA MEAT STOCKER, HONEY S 458.9 HYPOTENSION UNSPECIFIED 02/18/2014 BRISEYDA MEAT STOCKER, HONEY S 458.9 HYPOTENSION UNSPECIFIED 02/18/2014 TIMBO MEAT STOCKER, LEAH R 458.9 HYPOTENSION UNSPECIFIED 02/18/2014 BRISEYDA MEAT STOCKER, HONEY S 458.9 HYPOTENSION UNSPECIFIED 02/18/2014 TIMBO MEAT STOCKER, LEAH R 458.9 HYPOTENSION UNSPECIFIED 02/18/2014 LAMBERTO CUELLAR DO K 458.9 HYPOTENSION UNSPECIFIED 02/18/2014 BRISEYDA MEAT STOCKER, HONEY S 458.9 HYPOTENSION UNSPECIFIED 04/16/2014 BRISEYDA MEAT STOCKER, HONEY S 346.90 HEADACHE, MIGRAINE 04/16/2014 BRISEYDA ASTORGAN, HONEY S V76.10 BREAST CANCER SCREENING 04/16/2014 BRISEYDA MEAT STOCKER, HONEY S 346.90 HEADACHE, MIGRAINE 04/16/2014 BRISEYDA MEAT STOCKER, HONEY S V76.10 BREAST CANCER SCREENING 04/16/2014 TIMBO MEAT STOCKER, LEAH R 346.90 HEADACHE, MIGRAINE 04/16/2014 TIMBO MEAT STOCKER, LEAH R V76.10 BREAST CANCER SCREENING 04/16/2014 BRISEYDA MEAT STOCKER, HONEY S 346.90 HEADACHE, MIGRAINE 04/16/2014 BRISEYDA MEAT STOCKER, HONEY S V76.10 BREAST CANCER SCREENING 04/16/2014 TIMBO MEAT STOCKER, LEAH R 346.90 HEADACHE, MIGRAINE 04/16/2014 TIMBO MEAT STOCKER, LEAH R V76.10 BREAST CANCER SCREENING 04/16/2014 CUELLAR DO LAMBERTO K 346.90 HEADACHE, MIGRAINE 04/16/2014 CUELLAR DO LAMBERTO K V76.10 BREAST CANCER SCREENING 04/16/2014 BRISEYDA HELLER HONEY S 346.90 HEADACHE, MIGRAINE 04/16/2014 BRISEYDA HELLER HONEY S V76.10 BREAST CANCER SCREENING 06/20/2014 TIMBO MEAT STOCKER, LEAH R 786.2 COUGH 06/20/2014 BRISEYDA MEAT STOCKER, HONEY S 786.2 COUGH 06/20/2014 TIMBO MEAT STOCKER, LEAH R 786.2 COUGH 06/20/2014 CUELLAR DO, LAMBERTO K 786.2 COUGH 06/20/2014 BRISEYDA HELLER HONEY S 786.2 COUGH 09/09/2014 CUELLAR DO LAMBERTO K 112.0 CANDIDIASIS OF MOUTH 09/09/2014 POLO WEST LAMBERTO K 461.9 SINUSITIS ACUTE 09/09/2014 POLO DO LAMBERTO K 466.0 BRONCHITIS, ACUTE 09/09/2014 ALEXEY RANI APRNNDA S 112.0 CANDIDIASIS OF MOUTH 09/09/2014 ALEXEY RAIN APRNNDA S 461.9 SINUSITIS ACUTE 09/09/2014 ALEXEY RAIN APRNNDA S 466.0 BRONCHITIS, ACUTE 11/09/2014 MONY CHAO MD Ot 490 BRONCHITIS NOS 11/09/2014 MONY CHAO MD Ot 733.6 TIETZE'S DISEASE 11/09/2014 MONY CHAO MD Ot 786.50 CHEST PAIN NOS 11/12/2014 ALEXEY RAIN APRNNDA S 786.50 CHEST PAIN 11/12/2014 ALEXEY RAIN APRNNDA S V19.8 FAMILY HISTORY OF OTHER CONDITION 01/27/2015 ROYAL SAUER FACC, ALEKSEY FACP CCDS Ot 305.1 TOBACCO USE DISORDER 01/27/2015 ROYAL SAUER FACC, ALKESEY FACP CCDS Ot 401.9 HYPERTENSION NOS 01/27/2015 ROYAL SAUER FACC, ALEKSEY FACP CCDS Ot 729.81 SWELLING OF LIMB 01/27/2015 ROYAL SAUER FACC, ALEKSEY SHELTONP CCDS Ot 786.09 RESPIRATORY ABNORM NEC 01/27/2015 [...] HONEY RAIN Ot V76.12 05/08/2015 ROYAL SAUER FACEmelyn, ALEKSEY WATTS CCDS Ot 729.81 05/28/2015 HONEY RAIN Ot Z12.31 08/27/2015 FOZIA SAUER, LANETTE Jorge Ot I10 ESSENTIAL (PRIMARY) HYPERTENSION 08/27/2015 FOZIA SAUER, LANETTE Jorge Ot Z53.21 PROC/TRTMT NOT CRD OUT D/T PT LV BEF SEE 03/30/2016 PREETHI RENDON 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 Ot I10 ESSENTIAL (PRIMARY) HYPERTENSION 03/30/2016 PREETHI RENDONP Ot I73.9 PERIPHERAL VASCULAR DISEASE, UNSPECIFIED 03/30/2016 PREETHI RENDON 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 Ot J44.9 CHRONIC OBSTRUCTIVE PULMONARY DISEASE, U [...] OTH MALAISE FATIGUE 04/20/2016 Ot V58.69 OTH MED,LT, CURRENT USE 04/20/2016 Ot V76.12 OTH SCREEN MAMMO-MALIGN NEOPLASM OF YADIRA 04/20/2016 Ot 250.02 DIAB MK WO COMPL, TYPE II OR UNSPEC TY 04/20/2016 Ot V58.69 OTH MED,LT, CURRENT USE 04/20/2016 Ot 496 CHR AIRWAY OBSTRUCT NEC 04/20/2016 Ot 719.45 JOINT PAIN- PELVIS 04/20/2016 Ot 722.52 LUMB/ LUMBOSAC DISC DEGEN 04/20/2016 Ot 753.10 CYSTIC KIDNEY DISEASE, UNSPECIFIED 04/20/2016 Ot 789.09 ABDOMINAL PAIN, OTHER SPECIFIED SITE 04/20/2016 HONEY RAIN Ot V76.12 OTH SCREEN MAMMO-MALIGN NEOPLASM OF YADIRA 04/20/2016 ROYAL SAUER FAC, ALI FACP CCDS Ot 729.81 SWELLING OF LIMB 04/20/2016 HONEY RAIN ARACELI Ot Z12.31 ENCNTR SCREEN MAMMOGRAM FOR MALIGNANT NE 04/20/2016 MARCIN DO CECILYAMRIK Ot Z01.818 ENCOUNTER FOR OTHER PREPROCEDURAL EXAMIN 04/20/2016 PREETHI RENDON Ot I10 ESSENTIAL (PRIMARY) HYPERTENSION 04/20/2016 PREETHI RENDON Ot I73.9 PERIPHERAL VASCULAR DISEASE, UNSPECIFIED 04/20/2016 [...] NONVE 04/20/2016 IVETTE JACKSON DO Ot Y92.[address] [facility] [address] [facility] 04/20/2016 IVETTE JACKSON DO Ot Y99.8 OTHER EXTERNAL CAUSE STATUS 04/20/2016 IVETTE JACKSON DO Ot Z79.899 OTHER SKILLED NURSING (CURRENT) DRUG THERAPY 04/21/2016 IVETTE JACKSON DO [...] NONVE 04/21/2016 IVETTE JACKSON DO Ot Y92.[address] [facility] (PRIVATE 04/21/2016 IVETTE JACKSON DO Ot Y99.8 OTHER EXTERNAL CAUSE STATUS 04/21/2016 IVETTE JACKSON DO Ot Z79.899 OTHER [employer]ARGET TRIMMER (CURRENT) DRUG THERAPY 04/21/2016 PREETHI RENDONP Ot [...] OTH MALAISE FATIGUE 04/25/2016 Ot V58.69 OTH MED,LT, CURRENT USE 04/25/2016 Ot V76.12 OTH SCREEN MAMMO-MALIGN NEOPLASM OF YADIRA 04/25/2016 Ot 250.02 DIAB MK WO COMPL, TYPE II OR UNSPEC TY 04/25/2016 Ot V58.69 OTH MED,LT, CURRENT USE 04/25/2016 Ot 496 CHR AIRWAY OBSTRUCT NEC 04/25/2016 Ot 719.45 JOINT PAIN- PELVIS 04/25/2016 Ot 722.52 LUMB/ LUMBOSAC DISC DEGEN 04/25/2016 Ot 753.10 CYSTIC KIDNEY DISEASE, UNSPECIFIED 04/25/2016 Ot 789.09 ABDOMINAL PAIN, OTHER SPECIFIED SITE 04/25/2016 HONEY RAIN Ot V76.12 OTH SCREEN MAMMO-MALIGN NEOPLASM OF YADIRA 04/25/2016 ROYAL SAUER FACC, ALEKSEY SHELTONP CCDS Ot 729.81 SWELLING OF LIMB 04/25/2016 HONEY RAIN Ot Z12.31 ENCNTR SCREEN MAMMOGRAM FOR MALIGNANT NE 04/25/2016 ILDEFONSO BURCH DO Ot Z01.818 ENCOUNTER FOR OTHER PREPROCEDURAL EXAMIN 04/25/2016 PREETHI RENDONP Ot I10 ESSENTIAL (PRIMARY) HYPERTENSION 04/25/2016 PREETHI RENDON 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 Ot I73.9 PERIPHERAL VASCULAR DISEASE, UNSPECIFIED 04/25/2016 PREETHI RENDON 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 Ot J44.9 CHRONIC OBSTRUCTIVE PULMONARY DISEASE, U 04/29/2016 PREETHI RENDON 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 Ot I10 ESSENTIAL (PRIMARY) HYPERTENSION 04/29/2016 PREETHI RENDON 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 Ot I73.9 PERIPHERAL VASCULAR DISEASE, UNSPECIFIED 04/29/2016 PREETHI RENDON 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 Ot J44.9 CHRONIC OBSTRUCTIVE PULMONARY DISEASE, U 06/21/2016 BRISEYDA HONEY 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 Ot Z12.31 ENCNTR SCREEN MAMMOGRAM FOR MALIGNANT NE 06/22/2016 HONEY RAIN 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 Ot Z12.31 ENCNTR SCREEN MAMMOGRAM FOR MALIGNANT NE 06/22/2016 BRISEYDA HONEY 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 Ot Z12.31 ENCNTR SCREEN MAMMOGRAM FOR MALIGNANT NE 07/12/2016 HONEY RAIN 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 Ot Z12.31 ENCNTR SCREEN MAMMOGRAM FOR MALIGNANT NE 07/26/2016 BRISEYDA HNOEY 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 Ot Z12.31 ENCNTR SCREEN MAMMOGRAM FOR MALIGNANT NE 11/16/2016 Ot V12.72 PERSONAL HISTORY OF COLONIC POLYPS 11/16/2016 Ot V76.51 SCREEN MAL NEOP-COLON 11/16/2016 Ot 272.4 HYPERLIPIDEMIA NEC/NOS 11/16/2016 Ot 338.29 OTHER CHRONIC PAIN 11/16/2016 Ot 401.9 HYPERTENSION NOS 11/16/2016 Ot 496 CHR AIRWAY OBSTRUCT NEC 11/16/2016 Ot 780.4 DIZZINESS AND GIDDINESS 11/16/2016 Ot 780.79 OTH MALAISE FATIGUE 11/16/2016 Ot V58.69 OTH MED,LT, CURRENT USE 11/16/2016 Ot V76.12 OTH SCREEN MAMMO-MALIGN NEOPLASM OF YADIRA 11/16/2016 Ot 250.02 DIAB MK WO COMPL, TYPE II OR UNSPEC TY 11/16/2016 Ot V58.69 OTH MED,LT, CURRENT USE 11/16/2016 Ot 496 CHR AIRWAY OBSTRUCT NEC 11/16/2016 Ot 719.45 JOINT PAIN- PELVIS 11/16/2016 Ot 722.52 LUMB/ LUMBOSAC DISC DEGEN 11/16/2016 Ot 753.10 CYSTIC KIDNEY [...] ENCOUNTER FOR OTHER PREPROCEDURAL EXAMIN 11/16/2016 PREETHI RENDONP Ot I10 ESSENTIAL (PRIMARY) HYPERTENSION 11/16/2016 PREETHI RENDON 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 Ot I73.9 PERIPHERAL VASCULAR DISEASE, UNSPECIFIED 11/16/2016 PREETHI RENDON Ot J44.9 CHRONIC OBSTRUCTIVE PULMONARY DISEASE, U 11/16/2016 HONEY RAIN Ot Z12.31 ENCNTR SCREEN MAMMOGRAM FOR MALIGNANT NE 11/16/2016 HONEY RAIN Ot M79.89 OTHER SPECIFIED SOFT TISSUE DISORDERS 11/16/2016 HONEY RAINP Ot M79.89 OTHER SPECIFIED SOFT TISSUE DISORDERS 12/09/2016 HONEY RAIN Ot M79.89 OTHER SPECIFIED SOFT TISSUE DISORDERS 12/21/2016 HONEY RAIN Ot M79.89 OTHER SPECIFIED SOFT TISSUE DISORDERS 02/08/2017 LENNY BAZZIP Ot E03.9 HYPOTHYROIDISM, UNSPECIFIED 02/08/2017 LENNY BAZZI 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 Ot F17.210 NICOTINE DEPENDENCE, CIGARETTES, UNCOMPL 02/08/2017 ROSE MARY LENNY 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 Ot F32.9 MAJOR DEPRESSIVE DISORDER, SINGLE EPISOD 02/08/2017 LENNY BAZZI 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 Ot G43.909 MIGRAINE, UNSP, NOT INTRACTABLE, WITHOUT 02/08/2017 LENNY BAZZI 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 Ot I10 ESSENTIAL (PRIMARY) HYPERTENSION 02/08/2017 LENNY BAZZIP Ot J44.9 CHRONIC OBSTRUCTIVE PULMONARY DISEASE, U 02/08/2017 LENNY BAZZI 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 Ot S70.312A ABRASION, LEFT THIGH, INITIAL ENCOUNTER 02/08/2017 LENNY BAZZIP Ot W22.03XA WALKED INTO FURNITURE, INITIAL ENCOUNTER 02/08/2017 ROSE MARY, LENNY 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 Ot Z90.49 ACQUIRED ABSENCE OF OTHER SPECIFIED PART 02/08/2017 ROSE MARY, LENNY 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 Ot Z90.710 ACQUIRED ABSENCE OF BOTH CERVIX AND UTER 02/08/2017 ROSE MARY, LENNY 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 Ot Z90.89 ACQUIRED ABSENCE OF OTHER ORGANS 02/10/2017 ROSE MARY, LENNY 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 Ot E03.9 HYPOTHYROIDISM, UNSPECIFIED 02/10/2017 ROSE MARY, LENNY 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 Ot F17.210 NICOTINE DEPENDENCE, CIGARETTES, UNCOMPL 02/10/2017 ROSE MARY, LENNY 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 Ot F32.9 MAJOR DEPRESSIVE DISORDER, SINGLE EPISOD 02/10/2017 ROSE MARY, LENNY 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 Ot G43.909 MIGRAINE, UNSP, NOT INTRACTABLE, WITHOUT 02/10/2017 ROSE MARY, LENNY 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 Ot I10 ESSENTIAL (PRIMARY) HYPERTENSION 02/10/2017 ROSE MARY, LENNY 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 Ot J44.9 CHRONIC OBSTRUCTIVE PULMONARY DISEASE, U 02/10/2017 ROSE MARY, LENNY 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 Ot S70.312A ABRASION, LEFT THIGH, INITIAL ENCOUNTER 02/10/2017 ROSE MARY, LENNY 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 Ot W22.03XA WALKED INTO FURNITURE, INITIAL ENCOUNTER 02/10/2017 ROSE MARY, LENNY 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 Ot Z90.49 ACQUIRED ABSENCE OF OTHER SPECIFIED PART 02/10/2017 ROSE MARY, LENNY 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 Ot Z90.710 ACQUIRED ABSENCE OF BOTH CERVIX AND UTER 02/10/2017 ROSE MARY, LENNY 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 Ot Z90.89 ACQUIRED ABSENCE OF OTHER ORGANS 02/11/2017 ROSE MARY, LENNY 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 Ot E03.9 HYPOTHYROIDISM, UNSPECIFIED 02/11/2017 ROSE MARY, LENNY 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 Ot F17.210 NICOTINE DEPENDENCE, CIGARETTES, UNCOMPL 02/11/2017 ROSE MARY, LENNY 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 Ot F32.9 MAJOR DEPRESSIVE DISORDER, SINGLE EPISOD 02/11/2017 ROSE MARY, LENNY 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 Ot G43.909 MIGRAINE, UNSP, NOT INTRACTABLE, WITHOUT 02/11/2017 ROSE MARY, LENNY 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 Ot I10 ESSENTIAL (PRIMARY) HYPERTENSION 02/11/2017 ROSE MARY, LENNY 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 Ot J44.9 CHRONIC OBSTRUCTIVE PULMONARY DISEASE, U 02/11/2017 ROSE MARY, LENNY 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 Ot S70.312A ABRASION, LEFT THIGH, INITIAL ENCOUNTER 02/11/2017 ROSE MARY, LENNY 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 Ot W22.03XA WALKED INTO FURNITURE, INITIAL ENCOUNTER 02/11/2017 LENNY BAZZI 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 Ot Z90.49 ACQUIRED ABSENCE OF OTHER SPECIFIED PART 02/11/2017 LENNY BAZZI 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 Ot Z90.710 ACQUIRED ABSENCE OF BOTH CERVIX AND UTER 02/11/2017 LENNY BAZZI 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 Ot Z90.89 ACQUIRED ABSENCE OF OTHER ORGANS 05/25/2017 BAIMA, PREETHI L 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 Ot I07.1 RHEUMATIC TRICUSPID INSUFFICIENCY 05/25/2017 BAIMA, PREETHI L 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 Ot I27.20 PULMONARY HYPERTENSION, UNSPECIFIED 05/25/2017 BAIMA, PREETHI L 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 Ot I34.0 NONRHEUMATIC MITRAL (VALVE) INSUFFICIENC 05/25/2017 BAIMA, PREETHI L 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 Ot I65.23 OCCLUSION AND STENOSIS OF BILATERAL HERNANDEZ 05/25/2017 BAIMA, PREETHI L 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 Ot I70.213 [facility] [place] [facility] [place] [facility] 05/25/2017 BAIMA, PREETHI L 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 Ot R06.09 OTHER FORMS OF DYSPNEA 06/12/2017 BAIMA, PREETHI L 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 Ot I07.1 RHEUMATIC TRICUSPID INSUFFICIENCY 06/12/2017 BAIMA, PREETHI L 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 Ot I27.20 PULMONARY HYPERTENSION, UNSPECIFIED 06/12/2017 BAIMA, PREETHI L 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 Ot I34.0 NONRHEUMATIC MITRAL (VALVE) INSUFFICIENC 06/12/2017 BAIMA, PREETHI L 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 Ot I65.23 OCCLUSION AND STENOSIS OF BILATERAL [place] 06/12/2017 BAIMA, PREETHI L 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 Ot I70.213 [facility] [place] [facility] [place] [facility] 06/12/2017 BAIMA, PREETHI L 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 Ot R06.09 OTHER FORMS OF DYSPNEA 06/19/2017 BAIMA, PREETHI L 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 Ot I07.1 RHEUMATIC TRICUSPID INSUFFICIENCY 06/19/2017 BAIMA, PREETHI L 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 Ot I27.20 PULMONARY HYPERTENSION, UNSPECIFIED 06/19/2017 BAIMA, PREETHI L 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 Ot I34.0 NONRHEUMATIC MITRAL (VALVE) INSUFFICIENC 06/19/2017 BAIMA, PREETHI L 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 Ot I65.23 OCCLUSION AND STENOSIS OF BILATERAL HERNANDEZ 06/19/2017 BAIMA, PREETHI L 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 Ot I70.213 [facility] [place] [facility] [place] [facility] 06/19/2017 PREETHI RENDON 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 Ot R06.09 OTHER FORMS OF DYSPNEA Procedures Code [place] [address] ROUTINE VENIPUNCTURE 04/01/2013 62857 CMP 04/01/2013 07021 LIPID PANEL 04/01/2013 1109701 GFR CALC (RESULT ONLY) 04/01/2013 34265 CBC 04/01/2013 20661 ROUTINE VENIPUNCTURE 10/15/2013 81521 URINE DRUG SCREEN (IN-HOUSE ) 10/15/2013 17275 BMP 10/15/2013 Physical Physical Therapy 01/27/2014 54063 ROUTINE VENIPUNCTURE 02/17/2014 08037 CMP 02/18/2014 2107326 GFR CALC (RESULT ONLY) 02/18/2014 81595 ROUTINE VENIPUNCTURE 03/26/2014 59187 URINE DRUG SCREEN (IN-HOUSE ) 03/26/2014 25563 LIPID PANEL 03/26/2014 85190 MAMMOGRAM, SCREENING 04/23/2014 72210 ROUTINE VENIPUNCTURE 04/25/2014 7284937 GFR CALC (RESULT ONLY) 04/25/2014 81261 CMP 04/25/2014 72883 XRAY CHEST 2 VIEW 06/20/2014 62788 ROUTINE VENIPUNCTURE 11/12/2014 52708 LIPID PANEL 11/12/2014 81674 MAGNESIUM 11/12/2014 58470 TSH 11/12/2014 Results Test Result Range Complete blood count (CBC) with automated white blood cell (WBC) differential - 04/20/16 20:07 Blood leukocytes automated count (number/volume) 8.2 10*3/uL 4.3-11.0 Blood erythrocytes automated count (number/volume) 4.46 10*6/uL 4.35-5.85 Venous blood hemoglobin measurement (mass/volume) 13.1 [...] Automated blood platelet mean volume measurement 10.2 [foz_us] 7.4-10.4 Automated blood neutrophils/100 leukocytes 50 % [...] Serum or plasma sodium measurement (moles/volume) 133 mmol/L 135-145 Serum or plasma potassium measurement (moles/volume) 3.9 mmol/L 3.6-5.0 Serum or plasma chloride measurement (moles/volume) 100 mmol/L 98-107 Carbon dioxide 24 mmol/L 21-32 Serum or plasma anion gap determination (moles/volume) 9 mmol/L 5-14 Serum or plasma urea nitrogen measurement (mass/volume) 11 mg/dL 7-18 Serum or plasma creatinine measurement (mass/volume) 1.05 mg/dL 0.60-1.30 Serum or plasma urea nitrogen/creatinine mass [...] Status Pt. Type Provider Facility Loc./Unit Complaint [id number] 11/12/2014 09:09:00 11/12/2014 23:59:59 CLS Outpatient HONEY RAIN APRN [id number] 09/09/2014 13:56:00 09/09/2014 23:59:59 CLS Outpatient LAMBERTO CUELLAR DO [id number] 06/26/2014 09:58:00 06/26/2014 23:59:59 CLS Outpatient HONEY RAIN APRN [id number] 06/20/2014 08:37:00 06/20/2014 23:59:59 CLS Outpatient LEAH IZQUIERDO APRN [id number] 06/20/2014 08:37:00 06/20/2014 23:59:59 CLS Outpatient LEAH IZQUIERDO APRN [id number] 04/25/2014 08:46:00 04/25/2014 23:59:59 CLS Outpatient HONEY RAIN APRN [id number] 04/16/2014 08:15:00 04/16/2014 23:59:59 CLS Outpatient HONEY RAIN APRN [id number] 03/26/2014 07:57:00 03/26/2014 23:59:59 CLS Outpatient LAMBERTO CUELLAR DO [id number] 03/03/2014 08:16:00 03/03/2014 23:59:59 CLS Outpatient DELFIN KEARNS MD [id number] 02/18/2014 13:41:00 02/18/2014 23:59:59 CLS Outpatient HONEY RAIN APRN [id number] 11/21/2013 12:18:00 11/21/2013 23:59:59 CLS Outpatient HONEY RAIN APRN [id number] 11/12/2013 13:48:00 11/12/2013 23:59:59 CLS Outpatient HONEY RAIN APRN [id number] 10/15/2013 15:23:00 10/15/2013 23:59:59 CLS Outpatient HONEY RAIN APRN [id number] 10/15/2013 15:23:00 10/15/2013 23:59:59 CLS Outpatient HONEY RAIN APRN Luisito [id number] 06/24/2013 09:37:00 06/24/2013 23:59:59 CLS Outpatient DELFIN KEARNS MD [id number] 04/01/2013 10:31:00 04/01/2013 23:59:59 CLS Outpatient BRISEYDA ASTORGANHONEY Luisito [id number] 04/01/2013 10:31:00 04/01/2013 23:59:59 CLS Outpatient LAMBERTO CUELLAR DO [id number] 05/19/2017 12:49:00 05/19/2017 23:59:59 CLS Outpatient PREETHI RENDON [facility] CARD PAD [id number] 02/08/2017 14:14:00 02/08/2017 15:16:00 DIS Emergency LENNY BAZZI [facility] ER SPLINTER IN LEG [id number] 11/16/2016 14:17:00 11/16/2016 23:59:59 CLS Outpatient HONEY RAIN [facility] RAD LEFT LEG SWELLING [id number] 06/21/2016 10:36:00 06/21/2016 23:59:59 CLS Outpatient HONEY RAIN [facility] RAD BREAST CANCER SCREENING [id number] 04/20/2016 19:16:00 04/20/2016 22:03:00 DIS Emergency IVETTE JACKSON DO [facility] ER R ARM SWELLING AND PAIN [id number] 03/29/2016 09:53:00 03/29/2016 23:59:59 CLS Outpatient PREETHI RENDON [facility] LAB CAROTID ARTERY NARROWING,HTN,PAD,COPD [id number] 08/27/2015 09:53:00 08/27/2015 10:06:00 DIS Emergency FOZIA SAUER, LANETTE S [facility] ER ELEV BP [id number] 08/21/2015 05:43:00 08/21/2015 23:59:59 CLS Outpatient ILDEFONSO BURCH DO [facility] PREOP COLONSCOPY [id number] 05/08/2015 08:40:00 05/08/2015 23:59:59 CLS Outpatient HONEY RAIN [facility] RAD SCREENING [id number] 02/13/2015 10:13:00 02/13/2015 23:59:59 CLS Outpatient ROYAL SAUER FACC, ALEKSEY WATTS CCDS [facility] RAD BILAT LEG DISCOMFORT [id number] 01/27/2015 07:34:00 01/27/2015 15:26:00 DIS Outpatient ROYAL SAUER FACEmelyn, ALI FACP CCDS [facility] CATH CP,DYSPNEA, HYPERTENSION [id number] 11/09/2014 15:50:00 11/09/2014 18:04:00 DIS Emergency ZHANNA SAUER, MONY Shultz [facility] ER CHEST PAIN [id number] 04/23/2014 08:31:00 04/23/2014 23:59:59 CLS Outpatient HONEY RAIN [facility] RAD SCREENING [id number] 02/13/2014 17:51:00 02/14/2014 12:55:00 DIS Inpatient URMILA SAUER, DELFIN Heredia [facility] 4TH ACUTE RENAL FAILUTRE [id number] 06/03/2013 20:53:00 06/03/2013 22:40:00 DIS Emergency VICKI WALL [facility] ER CONGESTION [id number] 01/14/2013 11:52:00 01/14/2013 14:25:00 DIS Emergency VICKI WALL [facility] ER FALL/SYNCOPE HEAD INJURY [id number] 01/05/2013 15:18:00 01/05/2013 23:59:59 CLS Outpatient [id number] 08/16/2012 12:14:00 Document Registration [id number] 07/27/2012 09:51:00 Document Registration [id number] 07/09/2012 13:18:00 Document Registration [id number] 05/25/2012 08:33:00 Document Registration [id number] 05/08/2012 09:43:00 Document Registration [id number] 02/17/2012 08:37:00 Document Registration [id number] 01/05/2012 06:10:00 Document Registration [id number] 05/03/2011 11:17:00 Document Registration [id number] 10/15/2010 17:11:00 Document Registration [id number] 05/20/2010 13:14:00 Document Registration [id number] 04/01/2010 13:09:00 Document Registration [id number] 02/18/2010 12:03:00 Document Registration [id number] 12/18/2009 18:36:00 Document Registration [id number] 12/16/2009 19:33:00 Document Registration [id number] 12/10/2009 13:01:00 Document Registration [id number] 12/03/2009 07:59:00 Document Registration [id number] 11/28/2009 09:37:00 Document Registration [id number] 11/27/2009 10:28:00 Document Registration
[2017-08-24] MEDS ORDERED: ONDANSETRON 4 MG/2 ML (SDV) Z0FRAN IVP ONE (15:15)
[2017-08-24] MEDS ORDERED: RT-ALBUTEROL/IPRATROPIUM 3 ML (DUONEB) VIAL INH ONE ×2 (15:15→16:30)
[2017-08-24] MEDS ORDERED: ASPIRIN 81 MG CHEW (CHILDREN'S ASA) PO ONE (15:15)
[2017-08-24 15:34] LABS: BASOPHILS % (AUTO) 0 % (0-10); EOSINOPHILS # (AUTO) 0.2 10^3/uL (0.0-0.3); EOSINOPHILS % (AUTO) 2 % (0-10); HEMATOCRIT 43 % (35-52); HEMOGLOBIN 14.1 G/DL (11.5-16.0); LYMPHOCYTES # (AUTO) 1.1 X 10^3 (1.0-4.0); LYMPHOCYTES % (AUTO) 16 % (12-44); MEAN CORPUSCULAR HEMOGLOBIN 29 PG (25-34); MEAN CORPUSCULAR HGB CONC 33 G/DL (32-36); MEAN CORPUSCULAR VOLUME 88 FL (80-99); MEAN PLATELET VOLUME 10.1 FL (7.4-10.4); MONOCYTES # (AUTO) 0.5 X 10^3 (0.0-1.0); MONOCYTES % (AUTO) 8 % (0-12); NEUTROPHILS # (AUTO) 5.1 X 10^3 (1.8-7.8); NEUTROPHILS % (AUTO) 73 % (42-75); PLATELET COUNT 161 10^3/uL (130-400); RED BLOOD COUNT 4.82 10^6/uL (4.35-5.85); RED CELL DISTRIBUTION WIDTH 13.5 % (10.0-14.5)
[2017-08-24 15:52] LABS: ALANINE AMINOTRANSFERASE 39 U/L (0-55); ALBUMIN 3.9 GM/DL (3.2-4.5); ALKALINE PHOSPHATASE 127 U/L (40-136); BILIRUBIN,TOTAL 0.6 MG/DL (0.1-1.0); BUN/CREATININE RATIO 16; CALCIUM 8.9 MG/DL (8.5-10.1); CARBON DIOXIDE 24 MMOL/L (21-32); CHLORIDE 99 MMOL/L (98-107); CREATININE SERUM 1.12 MG/DL (0.60-1.30); GFR ESTIMATED 50; GLUCOSE 85 MG/DL (70-105); MAGNESIUM 1.6 MG/DL (1.8-2.4); SODIUM 133 MMOL/L (135-145); TOTAL PROTEIN 7.4 GM/DL (6.4-8.2)
[2017-08-24 15:58] LABS: MYOGLOBIN SERUM 92.8 NG/ML (10.0-92.0)
[2017-08-24] MEDS ORDERED: LIDOCAINE 2% VISCOUS 15 ML UDC PO ONE (16:00)
[2017-08-24] MEDS ORDERED: ANTACID SUSP 30 ML UDC (MYLANTA) PO ONE (16:00)
[2017-08-24] MEDS ORDERED: KETOROLAC 30 MG/ML VIAL IVP ONE (16:30)
--- NOTE | 2017-08-24 16:32 | Diagnostic Imaging Report ---
INDICATION: Chest pain since yesterday. COMPARISON with 11/09/2014. FINDINGS: P A and lateral chest show the lungs to be well-aerated and clear. The heart is not enlarged. No hilar adenopathy. No pulmonary edema. No pneumothorax or pleural effusion. IMPRESSION: Normal PA and lateral chest. Dictated by: Dictated on workstation # [id number]
--- NOTE | 2017-08-24 17:12 | ED Chest Pain ---
General Chief Complaint: Abdominal/GI Problems Stated Complaint: UPPER ABD/BACK PAIN Nursing Triage Note: pt presents to ed with burning epigastric pain that radiates to her back and r side. pt reports it usually gets better after drinking milk but doesnt seem to be helping today. pt also reports n/v. pt has audible wheezes noted during triage. Nursing Sepsis Screen: No Definite Risk Source: patient, family Exam Limitations: no limitations History of Present Illness Date Seen by Provider: Aug 24, 2017 Time Seen by Provider: 15:00 Initial Comments This 57-year-old woman presents to emergency room with complaints of chest pain , cough, and shortness of breath. Her pain is in the lower chest/epigastric area and radiates around to the back. She has very tight wheezing and cough with posttussive emesis/regurgitation. She denies any history of heart disease. She had a cardiac catheterization in 2014 showing no obstructive coronary artery disease. Patient continues to smoke. She uses nebulizers at home 4 times daily. She has had some nausea and diarrhea recently as well. Allergies and Home Medications Allergies Coded Allergies: amoxicillin (Verified Allergy, Unknown, 03/26/08) diphenhydramine (Verified Allergy, Unknown, 03/26/08) gabapentin (Unverified Allergy, Unknown, 11/09/14) Home Medications Acetaminophen 500 Mg Tablet, 1,000 MG PO Q4H PRN for PAIN, (Reported) Albuterol/Ipratropium 3 Ml Nebu, 3 ML INH Q6H PRN for SHORTNESS OF BREATH, ( Reported) Amlodipine Besylate 5 Mg Tablet, 5 MG PO DAILY, #30 Ref 0 Prescribed by: IVETTE JACKSON on 04/20/162150 Lisinopril 5 Mg Tablet, 5 MG PO DAILY, (Reported) Metoprolol Tartrate 50 Mg Tablet, 50 MG PO BID, (Reported) Mupirocin Calcium 15 Gm Cream..g., 15 GM TP TID, #1 Ref 0 Apply to left thigh abrasion 3 times a day. Prescribed by: LENNY BAZZI on 02/08/17 1508 Tiotropium [place] 1 Inh Aerp, 1 CAP INH DAILY, (Reported) Triamcinolone Acetonide 15 Gm Oint, 1 APPLIC TP BID, #30 Ref 0 Prescribed by: IVETTE JACKSON on 04/20/16 2150 Review of Systems Constitutional: no symptoms reported EENTM: No Symptoms Reported Respiratory: See HPI Cardiovascular: See HPI Gastrointestinal: See HPI 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: No Symptoms Reported Musculoskeletal: no symptoms reported Skin: no symptoms reported Psychiatric/Neurological: No Symptoms Reported Endocrine: No Symptoms Reported Hematologic/Lymphatic: No Symptoms Reported Past Qvdbtjj-Rodosh-Beefec Hx Patient Social History Alcohol Use: Denies Use Recreational Drug Use: No Smoking Status: Current Everyday Smoker Type Used: Cigarettes Recent Foreign Travel: No Contact w/Someone Who Travel: No Recent Infectious Disease Expo: No Recent Hopitalizations: No Physical Abuse: No Sexual Abuse: No Mistreated: No Fear: No Immunizations Up To Date Tetanus Booster (TDap): Unknown PED Vaccines UTD: No Date of Pneumonia Vaccine: Jan 27, 2015 Seasonal Allergies Seasonal Allergies: Yes Surgeries History of Surgeries: Yes Surgeries: Section, Gallbladder, Hysterectomy, Thyroidectomy Respiratory History of Respiratory Disorde: Yes Respiratory Disorders: COPD Cardiovascular History of Cardiac Disorders: Yes Cardiac Disorders: Hypertension Neurological History of Neurological Disord: Yes Neurological Disorders: Headaches /Migraines Reproductive System Hx Reproductive Disorders: Yes Sexually Transmitted Disease: No HIV/AIDS: No Female Reproductive Disorders: Menstrual Problems 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 History of 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 Disor: No Gastrointestinal History of Gastrointestinal Di: Yes Gastrointestinal Disorders: Gastroesophageal Reflux Musculoskeletal History of Musculoskeletal Dis: No Endocrine History of Endocrine Disorders: Yes (PARTIAL THYROIDECTOMY,HYPOGLYCEMIC) Endocrine Disorders: Hypothyroidsim HEENT Loss of Vision: Denies Hearing Impairment: Hard of Hearing, Deaf Cancer History of Cancer: Yes Cancer: Uterine Psychosocial History of Psychiatric Problem: Yes Behavioral Health Disorders: Depression Suicide Risk Score: 0 Integumentary History of Skin or Integumenta: No Blood Transfusions History of Blood Disorders: No Family Medical History Significant Family History: No Pertinent Family Hx Family Medial History: Cancer 19 MOTHER Family history: Diabetes mellitus 19 FATHER Stroke 19 FATHER Physical Exam Vital Signs Vital Sign - Last 12Hours 08/24/17 08/24/17 15:33 16:24 Temp 99.5 Pulse 83 Resp 20 B/P (MAP) 143/88 (106) Pulse Ox 95 O2 Delivery Room Air Capillary Refill : Less Than 3 Seconds General Appearance: WD/WN, Mild Distress HEENT: PERRL/EOMI, Normal ENT Inspection, Pharynx Normal Neck: Normal Inspection Respiratory: No Accessory Muscle Use, No Respiratory Distress, Wheezing (very tight) Cardiovascular: Regular Rate, Rhythm, No Edema, Normal Peripheral Pulses Gastrointestinal: Normal Bowel Sounds, Non Tender, Soft Extremity: Normal Inspection, Non Tender, No Calf Tenderness, No Pedal Edema, Other (negative Holly) Neurologic/Psychiatric: Alert, Oriented x3, No Motor/Sensory Deficits, Normal Mood/Affect, supervisor chemical II-XII Norm as Tested Skin: Normal Color, Warm/Dry Progress/Results/Core Measures Results/Orders Lab Results Laboratory Tests Test 08/24/17 15:25 Range/Units White Blood Count 7.0 4.3-11.0 10^3/uL Red Blood Count 4.82 4.35-5.85 10^6/uL Hemoglobin 14.1 11.5-16.0 G/DL Hematocrit 43 35-52 % Mean Corpuscular Volume 88 80-99 FL Mean Corpuscular Hemoglobin 29 25-34 PG Mean Corpuscular Hemoglobin Concent 33 32-36 G/DL Red Cell Distribution Width 13.5 10.0-14.5 % Platelet Count 161 130-400 10^3/uL Mean Platelet Volume 10.1 7.4-10.4 FL Neutrophils (%) (Auto) 73 42-75 % Lymphocytes (%) (Auto) 16 12-44 % Monocytes (%) (Auto) 8 0-12 % Eosinophils (%) (Auto) 2 0-10 % Basophils (%) (Auto) 0 0-10 % Neutrophils # (Auto) 5.1 1.8-7.8 X 10^3 Lymphocytes # (Auto) 1.1 1.0-4.0 X 10^3 Monocytes # (Auto) 0.5 0.0-1.0 X 10^3 Eosinophils # (Auto) 0.2 0.0-0.3 10^3/uL Basophils # (Auto) 0.0 0.0-0.1 10^3/uL Prothrombin Time 13.0 12.2-14.7 SEC INR Comment 1.0 0.8-1.4 Activated Partial Thromboplast Time 26 24-35 SEC Sodium Level 133 L 135-145 MMOL/L Potassium Level 4.0 3.6-5.0 MMOL/L Chloride Level 99 98-107 MMOL/L Carbon Dioxide Level 24 21-32 MMOL/L Anion Gap 10 5-14 MMOL/L Blood Urea Nitrogen 18 7-18 MG/DL Creatinine 1.12 0.60-1.30 MG/DL Estimat Glomerular Filtration Rate 50 BUN/Creatinine Ratio 16 Glucose Level 85 70-105 MG/DL Calcium Level 8.9 8.5-10.1 MG/DL Magnesium Level 1.6 L 1.8-2.4 MG/DL Total Bilirubin 0.6 0.1-1.0 MG/DL Aspartate Amino Transf (AST/SGOT) 80 H 5-34 U/L Alanine Aminotransferase (ALT/SGPT) 39 0-55 U/L Alkaline Phosphatase 127 40-136 U/L Myoglobin 92.8 H 10.0-92.0 NG/ML Troponin I < 0.30 <0.30 NG/ML Total Protein 7.4 6.4-8.2 GM/DL Albumin 3.9 3.2-4.5 GM/DL Micro Results Microbiology 08/24/17 Influenza Types A,B Antigen (DANIELLA) - Final, Complete My Orders Orders - LOUISE LARSON MD Cbc With Automated Diff (08/24/17 15:14) Magnesium (08/24/17 15:14) Ekg Tracing (08/24/17 15:14) Cardiac Profile 1 (08/24/17 15:14) Comprehensive Metabolic Panel (08/24/17 15:14) Myoglobin Serum (08/24/17 15:14) Protime With Inr (08/24/17 15:14) Partial Thromboplastin Time (08/24/17 15:14) O2 (08/24/17 15:14) Monitor-Rhythm Ecg Trace Only (08/24/17 15:14) Lipid Panel (08/25/17 06:00) Aspirin Chewable Tablet (Baby Aspirin Ch (08/24/17 15:15) Saline Lock/Iv-Start (08/24/17 15:14) Ondansetron Injection (Zofran Injectio (08/24/17 15:15) Chest Pa/Lat (2 View) (08/24/17 15:14) Albuterol/Ipra Inhalation Soln (Duoneb I (08/24/17 15:15) Svn Sm Volume Nebulizer Rt-Rfs (08/24/17 15:14) Lidocaine 2% Viscous 15 Ml (Xylocaine Vi (08/24/17 16:00) Antacid Suspension (Mylanta Suspension (08/24/17 16:00) Influenza A And B Antigens (08/24/17 16:00) Albuterol/Ipra Inhalation Soln (Duoneb I (08/24/17 16:30) Svn Sm Volume Nebulizer Rt-Rfs (08/24/17 16:19) Ketorolac Injection (Toradol Injection) (08/24/17 16:30) Methylprednisolone Sod Succ (Solu-Medrol (08/24/17 17:30) Medications Given in ED Current Medications Medications Dose Ordered Sig/Sahil Route Start Time Stop Time Status Last Admin Dose Admin Al Hydrox/Mg Hydrox/Simethicone 30 ml ONCE ONCE PO 08/24/17 16:00 08/24/17 16:01 DC 08/24/17 16:21 30 ML Albuterol/ Ipratropium 3 ml ONCE ONCE INH 08/24/17 15:15 08/24/17 15:17 DC 08/24/17 16:23 3 ML Albuterol/ Ipratropium 3 ml ONCE ONCE INH 08/24/17 16:30 08/24/17 16:31 DC 08/24/17 16:24 3 ML Aspirin 324 mg ONCE ONCE PO 08/24/17 15:15 08/24/17 15:17 DC 08/24/17 16:04 324 MG Lidocaine HCl 15 ml ONCE ONCE PO 08/24/17 16:00 08/24/17 16:01 DC 08/24/17 16:21 15 ML Ondansetron HCl 8 mg ONCE ONCE IVP 08/24/17 15:15 08/24/17 15:17 DC 08/24/17 16:03 8 MG Vital Signs/I&O Vital Sign - Last 12Hours 08/24/17 08/24/17 15:33 16:24 Temp 99.5 Pulse 83 Resp 20 B/P (MAP) 143/88 (106) Pulse Ox 95 95 O2 Delivery Room Air Blood Pressure Mean: 106 Progress Note : Progress Note Patient received 2 DuoNeb treatments and was still very tight and wheezy. She complained of persistent chest pain. Cardiac workup was unremarkable. Patient also had a catheter performed in 2014 which was negative for obstructive coronary artery disease. She received a GI cocktail which did not improve her pain significantly. She received Toradol after that. Toradol gave incomplete relief. Due to the extensiveness of patient's wheezing, it was felt appropriate to admit her for observation overnight. She needs scheduled breathing treatments, steroid therapy, and respite from her smoking. Patient had some gagging and regurgitation associated with coughing while in the ER. She received a Zofran to help reduce the gagging and regurgitation. Solu- Medrol was administered before departing the ER. ECG Initial ECG Impression Date: Aug 24, 2017 Initial ECG Impression Time: 15:24 Initial ECG Rate: 82 Initial ECG Rhythm: Normal Sinus Initial ECG Intervals: Normal Initial ECG Impression: Normal Comment Normal sinus rhythm with no ST elevation or depression. No abnormal intervals or axis deviation. Diagnostic Imaging Diagonstic Imaging: Xray Plain Films/CT/US/NM/MRI: chest Comments Chest x-ray viewed by me and report reviewed. See report below: NAME: YUSRA GOYAL [facility] REC#: [id number] PT STATUS: REG ER : 1960 PHYSICIAN: LOUISE LARSON MD ADMIT DATE: 08/24/17/ER Signed Date of Exam: 08/24/17 CHEST PA/LAT (2 VIEW) INDICATION: Chest pain since yesterday. COMPARISON with 11/09/2014. FINDINGS: P A and lateral chest show the lungs to be well-aerated and clear. The heart is not enlarged. No hilar adenopathy. No pulmonary edema. No pneumothorax or pleural effusion. IMPRESSION: Normal PA and lateral chest. Dictated by: Dictated on workstation # [id number] Dict: 08/24/17 1630 Trans: 08/24/17 1650 Interpreted by: MAURO SMITH MD Electronically signed by: MAURO SMITH MD 08/24/17 1650 Departure Communication (Admissions) Time/Spoke to Admitting Phy: 17:20 Communication Case was reviewed with Dr. Valero who agrees with admission with scheduled breathing treatments and steroid therapy. Impression Impression: Primary Impression: COPD exacerbation Additional Impression: Atypical chest pain Disposition: ADMITTED INPATIENT Condition: Improved Admissions Decision to Admit Reason: Admit from ER (General) Decision to Admit/Date: Aug 24, 2017 Time/Decision to Admit Time: 17:15 Departure-Patient Inst. Referrals: DELFIN KEARNS MD (PCP/Family) Primary Care Physician LOUISE LARSON MD Aug 24, 2017 17:12
[2017-08-24] MEDS ORDERED: methylPREDNISolone 125 MG (Solu-MEDROL) VIAL IVP ONE (17:30)
--- OUTSIDE RECORDS SUMMARY | 2017-08-24 18:24 | XMS REPORT | Continuity of Care Document ---
Author Author [facility] Address Unknown Phone Unavailable Allergies Active Description Code Type Severity Reaction Onset Reported/Identified Relationship to Patient Clinical Status Yes amoxicillin [id number] Drug Allergy Unknown N/A 03/26/2008 Yes diphenhydramine [id number] Drug Allergy Unknown N/A 03/26/2008 Yes Amoxicillin Drug Allergy N/A N/A 01/31/2013 Yes Benadryl Drug Allergy N/A N/A 01/31/2013 Yes Mobic Drug Allergy N/A N/A 06/24/2013 Yes Penicillins Drug Allergy N/A N/A 06/24/2013 Yes Symbicort Drug Allergy N/A N/A 11/12/2013 Yes Neurontin 100 mg capsule Drug Allergy N/A N/A 01/21/2014 Yes gabapentin [id number] Drug Allergy Unknown N/A 11/09/2014 Medications There [...] WALL Ot 780.2 SYNCOPE AND COLLAPSE 01/31/2013 BRSIEYDA BRACER, HONEY S 338.29 CHRONIC PAIN 01/31/2013 BRISEYDA BRACER, HONEY S 401.1 ESSENTIAL HYPERTENSION BENIGN 01/31/2013 BRISEYDA BRACER, HONEY S 496 CHRONIC OBSTRUCTIVE PULMONARY DISEASE 01/31/2013 BRISEYDA BRACER, HONEY S 780.2 fainting (syncope) 01/31/2013 BRISEYDA BRACER, HONEY S V70.0 NORMAL ROUTINE HISTORY AND [...] NORMAL ROUTINE HISTORY AND PHYSICAL 01/31/2013 BRISEYDA BRACER, HONEY S 338.29 CHRONIC PAIN 01/31/2013 BRISEYDA BRACER, HONEY S 401.1 ESSENTIAL HYPERTENSION BENIGN 01/31/2013 BRISEYDA BRACER, HONEY S 496 CHRONIC OBSTRUCTIVE PULMONARY DISEASE 01/31/2013 BRISEYDA BRACER, HONEY S 780.2 fainting (syncope) 01/31/2013 BRISEYDA BRACER, HONEY S V70.0 NORMAL ROUTINE HISTORY AND PHYSICAL 01/31/2013 BRISEYDA BRACER, HONEY S 338.29 CHRONIC PAIN 01/31/2013 BRISEYDA BRACER, HONEY S 401.1 ESSENTIAL HYPERTENSION BENIGN 01/31/2013 BRISEYDA BRACER, HONEY S 496 CHRONIC OBSTRUCTIVE PULMONARY DISEASE 01/31/2013 BRISEYDA BRACER, HONEY S 780.2 fainting (syncope) 01/31/2013 BRISEYDA BRACER, HONEY S V70.0 NORMAL ROUTINE HISTORY AND PHYSICAL 01/31/2013 BRISEYDA BRACER HONEY S 338.29 CHRONIC PAIN 01/31/2013 BRISEYDA BRACER, HONEY S 401.1 ESSENTIAL HYPERTENSION BENIGN 01/31/2013 BRISEYDA BRACER, HONEY S 496 CHRONIC OBSTRUCTIVE PULMONARY DISEASE 01/31/2013 BRISEYDA BRACER, HONEY S 780.2 fainting (syncope) 01/31/2013 BRISEYDA BRACER, HONEY S V70.0 NORMAL ROUTINE HISTORY AND PHYSICAL 01/31/2013 BRISEYDA BRACER, HONEY S 338.29 CHRONIC PAIN 01/31/2013 BRISEYDA BRACER HONEY S 401.1 ESSENTIAL HYPERTENSION BENIGN 01/31/2013 BRISEYDA BRACER HONEY S 496 CHRONIC OBSTRUCTIVE PULMONARY DISEASE 01/31/2013 BRISEYDA BRACER, HONEY S 780.2 fainting (syncope) 01/31/2013 BRISEYDA BRACER, HONEY S V70.0 NORMAL ROUTINE HISTORY AND PHYSICAL 01/31/2013 BRISEYDA BRACER, HONEY S 338.29 CHRONIC PAIN 01/31/2013 BRISEYDA BRACER, HONEY S 401.1 ESSENTIAL HYPERTENSION BENIGN 01/31/2013 BRISEYDA BRACER, HONEY S 496 CHRONIC OBSTRUCTIVE PULMONARY DISEASE 01/31/2013 BRISEYDA BRACER, HONEY S 780.2 fainting (syncope) 01/31/2013 BRISEYDA BRACER, HONEY S V70.0 NORMAL ROUTINE HISTORY AND [...] NORMAL ROUTINE HISTORY AND PHYSICAL 01/31/2013 BRISEYDA BRACER, HONEY S 338.29 CHRONIC PAIN 01/31/2013 BRISEYDA BRACER, HONEY S 401.1 ESSENTIAL HYPERTENSION BENIGN 01/31/2013 BRISEYDA BRACER, HONEY S 496 CHRONIC OBSTRUCTIVE PULMONARY DISEASE 01/31/2013 BRISEYDA BRACER, HONEY S 780.2 FAINTING (SYNCOPE) 01/31/2013 BRISEYDA BRACER, HONEY S V70.0 NORMAL ROUTINE HISTORY AND PHYSICAL 01/31/2013 BRISEYDA BRACER, HONEY S 338.29 CHRONIC PAIN 01/31/2013 BRISEYDA BRACER, HONEY S 401.1 ESSENTIAL HYPERTENSION BENIGN 01/31/2013 BRISEYDA BRACER, HONEY S 496 CHRONIC OBSTRUCTIVE PULMONARY DISEASE 01/31/2013 BRISEYDA BRACER, HONEY S 780.2 FAINTING (SYNCOPE) 01/31/2013 BRISEYDA BRACER, HONEY S V70.0 NORMAL ROUTINE HISTORY AND PHYSICAL 01/31/2013 TIMBO BRACER, LEAH R 338.29 CHRONIC PAIN 01/31/2013 TIMBO BRACER, LEAH R 401.1 ESSENTIAL HYPERTENSION BENIGN 01/31/2013 TIMBO BRACER, LEAH R 496 CHRONIC OBSTRUCTIVE PULMONARY DISEASE 01/31/2013 TIMBO BRACER, LEAH R 780.2 FAINTING (SYNCOPE) 01/31/2013 TIMBO BRACER, LEAH R V70.0 NORMAL ROUTINE HISTORY AND PHYSICAL 01/31/2013 BRISEYDA ASTORGAN, HONEY S 338.29 CHRONIC PAIN 01/31/2013 BRISEYDA BRACER, HONEY S 401.1 ESSENTIAL HYPERTENSION BENIGN 01/31/2013 BRISEYDA BRACER, HONEY S 496 CHRONIC OBSTRUCTIVE PULMONARY DISEASE 01/31/2013 BRISEYDA BRACER, HONEY S 780.2 FAINTING (SYNCOPE) 01/31/2013 BRISEYDA BRACER, HONEY S V70.0 NORMAL ROUTINE HISTORY AND PHYSICAL 01/31/2013 TIMBO BRACER, LEAH R 338.29 CHRONIC PAIN 01/31/2013 TIMBO BRACER, LEAH R 401.1 ESSENTIAL HYPERTENSION BENIGN 01/31/2013 TIMBO BRACER, LEAH R 496 CHRONIC OBSTRUCTIVE PULMONARY DISEASE 01/31/2013 TIMBO BRACER, LEAH R 780.2 FAINTING (SYNCOPE) 01/31/2013 TIMBO BRACER, LEAH R V70.0 NORMAL ROUTINE HISTORY AND PHYSICAL 01/31/2013 CUELLAR DO, LAMBERTO K 338.29 CHRONIC PAIN 01/31/2013 CUELLAR DO, LAMBERTO K 401.1 ESSENTIAL HYPERTENSION BENIGN 01/31/2013 CUELLAR DO, LAMBERTO K 496 CHRONIC OBSTRUCTIVE PULMONARY DISEASE 01/31/2013 CUELLAR DO, LAMBERTO K 780.2 FAINTING (SYNCOPE) 01/31/2013 CUELLAR DO, LAMBERTO K V70.0 NORMAL ROUTINE HISTORY AND PHYSICAL 01/31/2013 BRISEYDA BRACER, HONEY S 338.29 CHRONIC PAIN 01/31/2013 BRISEYDA BRACER, HONEY S 401.1 ESSENTIAL HYPERTENSION BENIGN 01/31/2013 BRISEYDA BRACER, HONEY S 496 CHRONIC OBSTRUCTIVE PULMONARY DISEASE 01/31/2013 BRISEYDA BRACER, HONEY S 780.2 FAINTING (SYNCOPE) 01/31/2013 BRISEYDA BRACER, HONEY S V70.0 NORMAL ROUTINE HISTORY AND PHYSICAL 04/01/2013 BRISEYDA BRACER, HONEY S 719.41 joint pain, localized in the shoulder 04/01/2013 POLO WEST LAMBERTO K 719.41 joint pain, localized in the shoulder 04/01/2013 DELFIN KEARNS MD 719.41 joint pain, localized in the shoulder 04/01/2013 BRISEYDA BRACER, HONEY S 719.41 joint pain, localized in the shoulder 04/01/2013 BRISEYDA BRACER, HONEY S 719.41 joint pain, localized in the shoulder 04/01/2013 BRISEYDA BRACER, HONEY S 719.41 joint pain, localized in the shoulder 04/01/2013 BRISEYDA BRACER, HONEY S 719.41 joint pain, localized in the shoulder 04/01/2013 BRISEYDA BRACER, HONEY S 719.41 joint pain, localized in the shoulder 04/01/2013 DELFIN KEARNS MD 719.41 joint pain, localized in the shoulder 04/01/2013 POLO WEST LAMBERTO K 719.41 joint pain, localized in the shoulder 04/01/2013 BRISEYDA BRACER, HONEY S 719.41 joint pain, localized in the shoulder 04/01/2013 BRISEYDA BRACER, HONEY S 719.41 joint pain, localized in the shoulder 04/01/2013 TIMBO BRACER, LEAH R 719.41 joint pain, localized in the shoulder 04/01/2013 BRISEYDA BRACER, HONEY S 719.41 JOINT PAIN, LOCALIZED IN THE SHOULDER 04/01/2013 TIMBO BRACER, LEAH R 719.41 JOINT PAIN, LOCALIZED IN THE SHOULDER 04/01/2013 JESUS CUELLAR DOA K 719.41 JOINT PAIN, LOCALIZED IN THE SHOULDER 04/01/2013 BRISEYDA BRACER, HONEY S 719.41 JOINT PAIN, LOCALIZED IN THE SHOULDER 06/03/2013 VICKI WALL Ot 491.21 OBSTR CHRONIC BRONCHITIS, W (ACUTE) EXAC 06/03/2013 VICKI WALL Ot 786.2 COUGH 06/24/2013 DELFIN KEARNS MD 782.1 RASH 06/24/2013 BRISEYDA BRACER, HONEY S 782.1 RASH 06/24/2013 BRISEYDA BRACER, HONEY S 782.1 RASH 06/24/2013 BRISEYDA BRACER, HONEY S 782.1 RASH 06/24/2013 BRISEYDA BRACER, HONEY S 782.1 RASH 06/24/2013 BRISEYDA BRACER, HONEY S 782.1 RASH 06/24/2013 DELFIN KEARNS MD 782.1 RASH 06/24/2013 LAMBERTO CUELLAR DO K 782.1 RASH 06/24/2013 BRISEYDA BRACER, HONEY S 782.1 RASH 06/24/2013 BRISEYDA BRACER, HONEY S 782.1 RASH 06/24/2013 TIMBO BRACER, LEAH R 782.1 RASH 06/24/2013 BRISEYDA BRACER, HONEY S 782.1 RASH 06/24/2013 TIMBO BRACER, LEAH R 782.1 RASH 06/24/2013 LAMBERTO CUELLAR DO K 782.1 RASH 06/24/2013 BRISEYDA BRACER, HONEY S 782.1 RASH 10/15/2013 BRISEYDA BRACER, HONEY S 593.9 RENAL INSUFFICIENCY 10/15/2013 BRISEYDA BRACER, HONEY S 593.9 RENAL INSUFFICIENCY 10/15/2013 BRISEYDA BRACER, HONEY S 593.9 RENAL INSUFFICIENCY 10/15/2013 BRISEYDA BRACER, HONEY S 593.9 RENAL INSUFFICIENCY 10/15/2013 BRISEYDA BRACER, HONEY S 593.9 RENAL INSUFFICIENCY 10/15/2013 URMILA SAUER, DELFIN 593.9 RENAL INSUFFICIENCY 10/15/2013 CUELLAR DO, LAMBERTO K 593.9 RENAL INSUFFICIENCY 10/15/2013 BRISEYDA BRACER, HONEY S 593.9 RENAL INSUFFICIENCY 10/15/2013 BRISEYDA BRACER, HONEY S 593.9 RENAL INSUFFICIENCY 10/15/2013 TIMBO BRACER, LEAH R 593.9 RENAL INSUFFICIENCY 10/15/2013 BRISEYDA BRACER, HONEY S 593.9 RENAL INSUFFICIENCY 10/15/2013 TIMBO BRACER, LEAH R 593.9 RENAL INSUFFICIENCY 10/15/2013 CUELLAR DO, LAMBERTO K 593.9 RENAL INSUFFICIENCY 10/15/2013 BRISEYDA BRACER, HONEY S 593.9 RENAL INSUFFICIENCY 01/21/2014 BRISEYDA BRACER, HONEY S 724.2 BACK PAIN, LOWER 01/21/2014 BRISEYDA BRACER, HONEY S 724.2 BACK PAIN, LOWER 01/21/2014 URMILA SAUER, DELFIN 724.2 BACK PAIN, LOWER 01/21/2014 CUELLAR DO, LAMBERTO K 724.2 BACK PAIN, LOWER 01/21/2014 BRISEYDA BRACER, HONEY S 724.2 BACK PAIN, LOWER 01/21/2014 BRISEYDA BRACER, HONEY S 724.2 BACK PAIN, LOWER 01/21/2014 TIMBO BRACER, LEAH R 724.2 BACK PAIN, LOWER 01/21/2014 BRISEYDA BRACER, HONEY S 724.2 BACK PAIN, LOWER 01/21/2014 TIMBO BRACER, LEAH R 724.2 BACK PAIN, LOWER 01/21/2014 CUELLAR DO, LAMBERTO K 724.2 BACK PAIN, LOWER 01/21/2014 BRISEYDA BRACER, HONEY S 724.2 BACK PAIN, LOWER 02/14/2014 [...] DO K 458.9 HYPOTENSION UNSPECIFIED 02/18/2014 BRISEYDA BRACER, HONEY S 458.9 HYPOTENSION UNSPECIFIED 02/18/2014 BRISEYDA BRACER, HONEY S 458.9 HYPOTENSION UNSPECIFIED 02/18/2014 TIMBO BRACER, LEAH R 458.9 HYPOTENSION UNSPECIFIED 02/18/2014 BRISEYDA BRACER, HONEY S 458.9 HYPOTENSION UNSPECIFIED 02/18/2014 TIMBO BRACER, LEAH R 458.9 HYPOTENSION UNSPECIFIED 02/18/2014 LAMBERTO CUELLAR DO K 458.9 HYPOTENSION UNSPECIFIED 02/18/2014 BRISEYDA BRACER, HONEY S 458.9 HYPOTENSION UNSPECIFIED 04/16/2014 BRISEYDA BRACER, HONEY S 346.90 HEADACHE, MIGRAINE 04/16/2014 BRISEYDA ASTORGAN, HONEY S V76.10 BREAST CANCER SCREENING 04/16/2014 BRISEYDA BRACER, HONEY S 346.90 HEADACHE, MIGRAINE 04/16/2014 BRISEYDA BRACER, HONEY S V76.10 BREAST CANCER SCREENING 04/16/2014 TIMBO BRACER, LEAH R 346.90 HEADACHE, MIGRAINE 04/16/2014 TIMBO BRACER, LEAH R V76.10 BREAST CANCER SCREENING 04/16/2014 BRISEYDA BRACER, HONEY S 346.90 HEADACHE, MIGRAINE 04/16/2014 BRISEYDA BRACER, HONEY S V76.10 BREAST CANCER SCREENING 04/16/2014 TIMBO BRACER, LEAH R 346.90 HEADACHE, MIGRAINE 04/16/2014 TIMBO BRACER, LEAH R V76.10 BREAST CANCER SCREENING 04/16/2014 CUELLAR DO LAMBERTO K 346.90 HEADACHE, MIGRAINE 04/16/2014 CUELLAR DO LAMBERTO K V76.10 BREAST CANCER SCREENING 04/16/2014 BRISEYDA HELLER HONEY S 346.90 HEADACHE, MIGRAINE 04/16/2014 BRISEYDA HELLER HONEY S V76.10 BREAST CANCER SCREENING 06/20/2014 TIMBO BRACER, LEAH R 786.2 COUGH 06/20/2014 BRISEYDA BRACER, HONEY S 786.2 COUGH 06/20/2014 TIMBO BRACER, LEAH R 786.2 COUGH 06/20/2014 CUELLAR DO, [...] PT LV BEF SEE 03/30/2016 PREETHI RENDON INSULATOR HELPER Ot I10 ESSENTIAL (PRIMARY) HYPERTENSION 03/30/2016 PREETHI RENDONP Ot I73.9 PERIPHERAL VASCULAR DISEASE, UNSPECIFIED 03/30/2016 PREETHI RENDON INSULATOR HELPER Ot J44.9 CHRONIC OBSTRUCTIVE PULMONARY DISEASE, U [...] NONVE 04/20/2016 IVETTE JACKSON DO Ot Y92.[address] [facility] [address] [facility] 04/20/2016 IVETTE JACKSON DO Ot Y99.8 OTHER EXTERNAL CAUSE STATUS 04/20/2016 IVETTE JACKSON DO Ot Z79.899 OTHER DETENTION (CURRENT) DRUG THERAPY 04/21/2016 IVETTE JACKSON DO [...] JACKSON DO Ot Y92.[address] IN [facility] (PRIVATE 04/21/2016 IVETTE JACKSON DO Ot Y99.8 OTHER EXTERNAL CAUSE STATUS 04/21/2016 IVETTE JACKSON DO Ot 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 04/21/2016 PREETHI RENDONP Ot [...] I10 ESSENTIAL (PRIMARY) HYPERTENSION 04/25/2016 PREETHI RENDON INSULATOR HELPER Ot I73.9 PERIPHERAL VASCULAR DISEASE, UNSPECIFIED 04/25/2016 PREETHI RENDON INSULATOR HELPER Ot J44.9 CHRONIC OBSTRUCTIVE PULMONARY DISEASE, U 04/29/2016 PREETHI RENDON INSULATOR HELPER Ot I10 ESSENTIAL (PRIMARY) HYPERTENSION 04/29/2016 PREETHI RENDON INSULATOR HELPER Ot I73.9 PERIPHERAL VASCULAR DISEASE, UNSPECIFIED 04/29/2016 PREETHI RENDON INSULATOR HELPER Ot J44.9 CHRONIC OBSTRUCTIVE PULMONARY DISEASE, U 06/21/2016 BRISEYDA HONEY INSULATOR HELPER Ot Z12.31 ENCNTR SCREEN MAMMOGRAM FOR MALIGNANT NE 06/22/2016 HONEY RAIN INSULATOR HELPER Ot Z12.31 ENCNTR SCREEN MAMMOGRAM FOR MALIGNANT NE 06/22/2016 BRISEYDA HONEY INSULATOR HELPER Ot Z12.31 ENCNTR SCREEN MAMMOGRAM FOR MALIGNANT NE 07/12/2016 HONEY RAIN INSULATOR HELPER Ot Z12.31 ENCNTR SCREEN MAMMOGRAM FOR MALIGNANT NE 07/26/2016 BRISEYDA HONEY INSULATOR HELPER Ot Z12.31 ENCNTR SCREEN MAMMOGRAM FOR MALIGNANT [...] I10 ESSENTIAL (PRIMARY) HYPERTENSION 11/16/2016 PREETHI RENDON INSULATOR HELPER Ot I73.9 PERIPHERAL VASCULAR DISEASE, UNSPECIFIED 11/16/2016 [...] Ot E03.9 HYPOTHYROIDISM, UNSPECIFIED 02/08/2017 LENNY BAZZI INSULATOR HELPER Ot F17.210 NICOTINE DEPENDENCE, CIGARETTES, UNCOMPL 02/08/2017 ROSE MARY LENNY INSULATOR HELPER Ot F32.9 MAJOR DEPRESSIVE DISORDER, SINGLE EPISOD 02/08/2017 LENNY BAZZI INSULATOR HELPER Ot G43.909 MIGRAINE, UNSP, NOT INTRACTABLE, WITHOUT 02/08/2017 LENNY BAZZI INSULATOR HELPER Ot I10 ESSENTIAL (PRIMARY) HYPERTENSION 02/08/2017 LENNY BAZZIP Ot J44.9 CHRONIC OBSTRUCTIVE PULMONARY DISEASE, U 02/08/2017 LENNY BAZZI INSULATOR HELPER Ot S70.312A ABRASION, LEFT THIGH, INITIAL ENCOUNTER 02/08/2017 LENNY BAZZIP Ot W22.03XA WALKED INTO FURNITURE, INITIAL ENCOUNTER 02/08/2017 ROSE MARY, LENNY INSULATOR HELPER Ot Z90.49 ACQUIRED ABSENCE OF OTHER SPECIFIED PART 02/08/2017 ROSE MARY, LENNY INSULATOR HELPER Ot Z90.710 ACQUIRED ABSENCE OF BOTH CERVIX AND UTER 02/08/2017 ROSE MARY, LENNY INSULATOR HELPER Ot Z90.89 ACQUIRED ABSENCE OF OTHER ORGANS 02/10/2017 ROSE MARY, LENNY INSULATOR HELPER Ot E03.9 HYPOTHYROIDISM, UNSPECIFIED 02/10/2017 ROSE MARY, LENNY INSULATOR HELPER Ot F17.210 NICOTINE DEPENDENCE, CIGARETTES, UNCOMPL 02/10/2017 ROSE MARY, LENNY INSULATOR HELPER Ot F32.9 MAJOR DEPRESSIVE DISORDER, SINGLE EPISOD 02/10/2017 ROSE MARY, LENNY INSULATOR HELPER Ot G43.909 MIGRAINE, UNSP, NOT INTRACTABLE, WITHOUT 02/10/2017 ROSE MARY, LENNY INSULATOR HELPER Ot I10 ESSENTIAL (PRIMARY) HYPERTENSION 02/10/2017 ROSE MARY, LENNY INSULATOR HELPER Ot J44.9 CHRONIC OBSTRUCTIVE PULMONARY DISEASE, U 02/10/2017 ROSE MARY, LENNY INSULATOR HELPER Ot S70.312A ABRASION, LEFT THIGH, INITIAL ENCOUNTER 02/10/2017 ROSE MARY, LENNY INSULATOR HELPER Ot W22.03XA WALKED INTO FURNITURE, INITIAL ENCOUNTER 02/10/2017 ROSE MARY, LENNY INSULATOR HELPER Ot Z90.49 ACQUIRED ABSENCE OF OTHER SPECIFIED PART 02/10/2017 ROSE MARY, LENNY INSULATOR HELPER Ot Z90.710 ACQUIRED ABSENCE OF BOTH CERVIX AND UTER 02/10/2017 ROSE MARY, LENNY INSULATOR HELPER Ot Z90.89 ACQUIRED ABSENCE OF OTHER ORGANS 02/11/2017 ROSE MARY, LENNY INSULATOR HELPER Ot E03.9 HYPOTHYROIDISM, UNSPECIFIED 02/11/2017 ROSE MARY, LENNY INSULATOR HELPER Ot F17.210 NICOTINE DEPENDENCE, CIGARETTES, UNCOMPL 02/11/2017 ROSE MARY, LENNY INSULATOR HELPER Ot F32.9 MAJOR DEPRESSIVE DISORDER, SINGLE EPISOD 02/11/2017 ROSE MARY, LENNY INSULATOR HELPER Ot G43.909 MIGRAINE, UNSP, NOT INTRACTABLE, WITHOUT 02/11/2017 ROSE MARY, LENNY INSULATOR HELPER Ot I10 ESSENTIAL (PRIMARY) HYPERTENSION 02/11/2017 ROSE MARY, LENNY INSULATOR HELPER Ot J44.9 CHRONIC OBSTRUCTIVE PULMONARY DISEASE, U 02/11/2017 ROSE MARY, LENNY INSULATOR HELPER Ot S70.312A ABRASION, LEFT THIGH, INITIAL ENCOUNTER 02/11/2017 ROSE MARY, LENNY INSULATOR HELPER Ot W22.03XA WALKED INTO FURNITURE, INITIAL ENCOUNTER 02/11/2017 LENNY BAZZI INSULATOR HELPER Ot Z90.49 ACQUIRED ABSENCE OF OTHER SPECIFIED PART 02/11/2017 LENNY BAZZI INSULATOR HELPER Ot Z90.710 ACQUIRED ABSENCE OF BOTH CERVIX AND UTER 02/11/2017 LENNY BAZZI INSULATOR HELPER Ot Z90.89 ACQUIRED ABSENCE OF OTHER ORGANS 05/25/2017 BAIMA, PREETHI L INSULATOR HELPER Ot I07.1 RHEUMATIC TRICUSPID INSUFFICIENCY 05/25/2017 BAIMA, PREETHI L INSULATOR HELPER Ot I27.20 PULMONARY HYPERTENSION, UNSPECIFIED 05/25/2017 BAIMA, PREETHI L INSULATOR HELPER Ot I34.0 NONRHEUMATIC MITRAL (VALVE) INSUFFICIENC 05/25/2017 BAIMA, PREETHI L INSULATOR HELPER Ot I65.23 OCCLUSION AND STENOSIS OF BILATERAL HERNANDEZ 05/25/2017 BAIMA, PREETHI L INSULATOR HELPER Ot I70.213 [facility]CL [place] [facility] 05/25/2017 BAIMA, PREETHI L INSULATOR HELPER Ot R06.09 OTHER FORMS OF DYSPNEA 06/12/2017 BAIMA, PREETHI L INSULATOR HELPER Ot I07.1 RHEUMATIC TRICUSPID INSUFFICIENCY 06/12/2017 BAIMA, PREETHI L INSULATOR HELPER Ot I27.20 PULMONARY HYPERTENSION, UNSPECIFIED 06/12/2017 BAIMA, PREETHI L INSULATOR HELPER Ot I34.0 NONRHEUMATIC MITRAL (VALVE) INSUFFICIENC 06/12/2017 BAIMA, PREETHI L INSULATOR HELPER Ot I65.23 OCCLUSION AND STENOSIS OF BILATERAL HERNANDEZ 06/12/2017 BAIMA, PREETHI L INSULATOR HELPER Ot I70.213 ATHSCL [place] [facility] 06/12/2017 BAIMA, PREETHI L INSULATOR HELPER Ot R06.09 OTHER FORMS OF DYSPNEA 06/19/2017 BAIMA, PREETHI L INSULATOR HELPER Ot I07.1 RHEUMATIC TRICUSPID INSUFFICIENCY 06/19/2017 BAIMA, PREETHI L INSULATOR HELPER Ot I27.20 PULMONARY HYPERTENSION, UNSPECIFIED 06/19/2017 BAIMA, PREETHI L INSULATOR HELPER Ot I34.0 NONRHEUMATIC MITRAL (VALVE) INSUFFICIENC 06/19/2017 BAIMA, PREETHI L INSULATOR HELPER Ot I65.23 OCCLUSION AND STENOSIS OF BILATERAL HERNANDEZ 06/19/2017 BAIMA, PREETHI L INSULATOR HELPER Ot I70.213 A[facility]CL [place] [facility] 06/19/2017 PREETHI RENDON INSULATOR HELPER Ot R06.09 OTHER FORMS OF DYSPNEA Procedures Code Description [place] [address] ROUTINE VENIPUNCTURE 04/01/2013 66757 CMP 04/01/2013 91689 LIPID PANEL 04/01/2013 [id number] GFR CALC (RESULT ONLY) 04/01/2013 22958 CBC 04/01/2013 [id number] ROUTINE VENIPUNCTURE 10/15/2013 93071 URINE DRUG SCREEN (IN-HOUSE ) 10/15/2013 33255 BMP 10/15/2013 Physical Physical Therapy 01/27/2014 [id number] ROUTINE VENIPUNCTURE 02/17/2014 71349 CMP 02/18/2014 [id number] GFR CALC (RESULT ONLY) 02/18/2014 83148 ROUTINE VENIPUNCTURE 03/26/2014 65864 URINE DRUG SCREEN (IN-HOUSE ) 03/26/2014 92946 LIPID PANEL 03/26/2014 31811 MAMMOGRAM, SCREENING 04/23/2014 82893 ROUTINE VENIPUNCTURE 04/25/2014 [id number] GFR CALC (RESULT ONLY) 04/25/2014 18489 CMP 04/25/2014 19211 XRAY CHEST 2 VIEW 06/20/2014 68030 ROUTINE VENIPUNCTURE 11/12/2014 86627 LIPID PANEL 11/12/2014 14341 MAGNESIUM 11/12/2014 53909 TSH 11/12/2014 Results Test Result Range Complete [...] plasma albumin measurement (mass/volume) 4.0 g/dL 3.2-4.5 Complete blood count (CBC) with automated white blood cell (WBC) differential - 08/24/17 15:25 Blood leukocytes automated count (number/volume) 7.0 10*3/uL 4.3-11.0 Blood erythrocytes automated count (number/volume) 4.82 10*6/uL 4.35-5.85 Venous blood hemoglobin measurement (mass/volume) 14.1 g/dL 11.5-16.0 Blood hematocrit (volume fraction) 43 % 35-52 Automated erythrocyte mean corpuscular volume 88 [foz_us] 80-99 Automated erythrocyte mean corpuscular hemoglobin (mass per erythrocyte) 29 pg 25-34 Automated erythrocyte mean corpuscular hemoglobin concentration measurement ( mass/volume) 33 g/dL 32-36 Automated erythrocyte distribution width ratio 13.5 % 10.0-14.5 Automated blood platelet count (count/volume) 161 10*3/uL 130-400 Automated blood platelet mean volume measurement 10.1 [foz_us] 7.4-10.4 Automated blood neutrophils/100 leukocytes 73 % 42-75 Automated blood lymphocytes/100 leukocytes 16 % 12-44 Blood monocytes/100 leukocytes 8 % 0-12 Automated blood eosinophils/100 leukocytes 2 % 0-10 Automated blood basophils/100 leukocytes 0 % 0-10 Blood neutrophils automated count (number/volume) 5.1 10*3 1.8-7.8 Blood lymphocytes automated count (number/volume) 1.1 10*3 1.0-4.0 Blood monocytes automated count (number/volume) 0.5 10*3 0.0-1.0 Automated eosinophil count 0.2 10*3/uL 0.0-0.3 Automated blood basophil count (count/volume) 0.0 10*3/uL 0.0-0.1 Comprehensive metabolic panel - 08/24/17 15:25 Serum or plasma sodium measurement (moles/volume) 133 mmol/L 135-145 Serum or plasma potassium measurement (moles/volume) 4.0 mmol/L 3.6-5.0 Serum or plasma chloride measurement (moles/volume) 99 mmol/L 98-107 Carbon dioxide 24 mmol/L 21-32 Serum or plasma anion gap determination (moles/volume) 10 mmol/L 5-14 Serum or plasma urea nitrogen measurement (mass/volume) 18 mg/dL 7-18 Serum or plasma creatinine measurement (mass/volume) 1.12 mg/dL 0.60-1.30 Serum or plasma urea nitrogen/creatinine mass ratio 16 NRG Serum or plasma creatinine measurement with calculation of estimated glomerular filtration rate 50 NRG Serum or plasma glucose measurement (mass/volume) 85 mg/dL 70-105 Serum or plasma calcium measurement (mass/volume) 8.9 mg/dL 8.5-10.1 Serum or plasma total bilirubin measurement (mass/volume) 0.6 mg/dL 0.1-1.0 Serum or plasma alkaline phosphatase measurement (enzymatic activity/volume) 127 U/L 40-136 Serum or plasma aspartate aminotransferase measurement (enzymatic activity/ volume) 80 U/L 5-34 Serum or plasma alanine aminotransferase measurement (enzymatic activity/volume ) 39 U/L 0-55 Serum or plasma protein measurement (mass/volume) 7.4 g/dL 6.4-8.2 Serum or plasma albumin measurement (mass/volume) 3.9 g/dL 3.2-4.5 Magnesium - 08/24/17 15:25 Magnesium 1.6 mg/dL 1.8-2.4 PT panel in platelet poor plasma by coagulation assay - 08/24/17 15:25 Prothrombin time (PT) in platelet poor plasma by coagulation assay 13.0 s 12.2-14.7 INR in platelet poor plasma or blood by coagulation assay 1.0 0.8-1.4 Activated partial thromboplastin time (aPTT) in platelet poor plasma bycoagulation assay - 08/24/17 15:25 Activated partial thromboplastin time (aPTT) in platelet poor plasma bycoagulation assay 26 s 24-35 Serum or plasma troponin i.cardiac measurement (mass/volume) - 08/24/17 15:25 Serum or plasma troponin i.cardiac measurement (mass/volume) < ng/ mL <0.30 Myoglobin, serum - 08/24/17 15:25 Myoglobin, serum 92.8 ng/mL 10.0-92.0 Influenza virus A and B antigen detection - 08/24/17 16:20 FLU RESULT NEGATIVE FOR INFLUENZA A AND B ANTIGENS BY IA NRG Encounters ACCT No. Visit Date/Time Discharge Status Pt. Type Provider Facility Loc./Unit Complaint [id number] 11/12/2014 09:09:00 11/12/2014 23:59:59 CLS Outpatient HONEY RAIN APRN [id number] 09/09/2014 13:56:00 09/09/2014 23:59:59 CLS Outpatient LAMBERTO CUELLAR DO [id number] 06/26/2014 09:58:00 06/26/2014 23:59:59 CLS Outpatient HONEY RAIN APRN [id number] 06/20/2014 08:37:00 06/20/2014 23:59:59 CLS Outpatient LEAH IZQUIERDO APRN [id number] 06/20/2014 08:37:00 06/20/2014 23:59:59 CLS Outpatient LEAH IZQUIERDO APRN [id number] 04/25/2014 08:46:00 04/25/2014 23:59:59 CLS Outpatient HONEY RAIN APRN [id number] 04/16/2014 08:15:00 04/16/2014 23:59:59 CLS Outpatient HONEY RAIN APRN [id number] 03/26/2014 07:57:00 03/26/2014 23:59:59 CLS Outpatient LAMBERTO CUELLAR DO [id number] 03/03/2014 08:16:00 03/03/2014 23:59:59 CLS Outpatient DELFIN KEARNS MD [id number] 02/18/2014 13:41:00 02/18/2014 23:59:59 CLS Outpatient HONEY RAIN APRN [id number] 11/21/2013 12:18:00 11/21/2013 23:59:59 CLS Outpatient HONEY RAIN APRN [id number] 11/12/2013 13:48:00 11/12/2013 23:59:59 CLS Outpatient HONEY RAIN APRN [id number] 10/15/2013 15:23:00 10/15/2013 23:59:59 CLS Outpatient HONEY RAIN APRN [id number] 10/15/2013 15:23:00 10/15/2013 23:59:59 CLS Outpatient HONEY RAIN APRN [id number] 06/24/2013 09:37:00 06/24/2013 23:59:59 CLS Outpatient DELFIN KEARNS MD [id number] 04/01/2013 10:31:00 04/01/2013 23:59:59 CLS Outpatient HONEY RAIN APRN Luisito [id number] 04/01/2013 10:31:00 04/01/2013 23:59:59 CLS Outpatient LAMBERTO CUELLAR DO [id number] 05/19/2017 12:49:00 05/19/2017 23:59:59 CLS Outpatient PREETHI RENDON [facility] CARD PAD [id number] 02/08/2017 14:14:00 02/08/2017 15:16:00 DIS Emergency LENNY BAZZI [facility] ER SPLINTER IN LEG [id number] 11/16/2016 14:17:00 11/16/2016 23:59:59 CLS Outpatient HONEY RAIN [facility] RAD LEFT LEG SWELLING [id number] 06/21/2016 10:36:00 06/21/2016 23:59:59 CLS Outpatient HONEY RAIN [facility] RAD BREAST CANCER SCREENING [id number] 04/20/2016 19:16:00 04/20/2016 22:03:00 DIS Emergency IVETTE JACKSON DO [facility] ER R ARM SWELLING AND PAIN [id number] 03/29/2016 09:53:00 03/29/2016 23:59:59 CLS Outpatient PREETHI RENDON [facility] LAB CAROTID ARTERY NARROWING,HTN,PAD,COPD [id number] 08/27/2015 09:53:00 08/27/2015 10:06:00 DIS Emergency LANETTE MARCELO MD [facility] ER ELEV BP [id number] 08/21/2015 05:43:00 08/21/2015 23:59:59 CLS Outpatient ILDEFONSO BURCH DO [facility] PREOP COLONSCOPY [id number] 05/08/2015 08:40:00 05/08/2015 23:59:59 CLS Outpatient HONEY RAIN [facility] RAD SCREENING [id number] 02/13/2015 10:13:00 02/13/2015 23:59:59 CLS Outpatient ROYAL SAUER FACC, ALEKSEY WATTS CCDS [facility] RAD BILAT LEG DISCOMFORT [id number] 01/27/2015 07:34:00 01/27/2015 15:26:00 DIS Outpatient ROYAL SAUER FACC, ALEKSEY WATTS CCDS [facility] CATH CP,DYSPNEA, HYPERTENSION [id number] 11/09/2014 15:50:00 11/09/2014 18:04:00 DIS Emergency MONY CHAO MD [facility] ER CHEST PAIN [id number] 04/23/2014 08:31:00 04/23/2014 23:59:59 CLS Outpatient HONEY RAIN [facility] RAD SCREENING [id number] 02/13/2014 17:51:00 02/14/2014 12:55:00 DIS Inpatient DELFIN KEARNS MD [facility] 4TH ACUTE RENAL FAILUTRE [id number] 06/03/2013 20:53:00 06/03/2013 22:40:00 DIS Emergency VICKI WALL [facility] ER CONGESTION [id number] 01/14/2013 11:52:00 01/14/2013 14:25:00 DIS Emergency VICKI WALL [facility] ER FALL/SYNCOPE HEAD INJURY [id number] 01/05/2013 15:18:00 01/05/2013 23:59:59 CLS Outpatient [id number] 08/24/2017 15:37:00 Document Registration [id number] 08/16/2012 12:14:00 Document Registration [id number] 07/27/2012 09:51:00 Document Registration [id number] 07/09/2012 13:18:00 Document Registration [id number] 05/25/2012 08:33:00 Document Registration [id number] 05/08/2012 09:43:00 Document Registration [id number] 02/17/2012 08:37:00 Document Registration [id number] 01/05/2012 06:10:00 Document Registration [id number] 05/03/2011 11:17:00 Document Registration [id number] 10/15/2010 17:11:00 Document Registration [id number] 05/20/2010 13:14:00 Document Registration [id number] 04/01/2010 13:09:00 Document Registration [id number] 02/18/2010 12:03:00 Document Registration [id number] 12/18/2009 18:36:00 Document Registration [id number] 12/16/2009 19:33:00 Document Registration [id number] 12/10/2009 13:01:00 Document Registration [id number] 12/03/2009 07:59:00 Document Registration [id number] 11/28/2009 09:37:00 Document Registration [id number] 11/27/2009 10:28:00 Document Registration
[2017-08-24 18:49] VITALS: BP 155/78
[2017-08-24 19:45] VITALS: BP 135/81
[2017-08-24] MEDS ORDERED: ONDANSETRON 4 MG/2 ML (SDV) Z0FRAN IV PRN (19:45)
[2017-08-24] MEDS ORDERED: RT-ALBUTEROL SULF 2.5 MG/3 ML PRE-MIX VIAL INH PRN (19:45)
[2017-08-24] MEDS ORDERED: CATHETER FLUSH 10 ML SYR IV PRN (19:45)
[2017-08-24] MEDS: NS IV 1000 ML 1,000 ML IV SCH (20:07)
[2017-08-24] MEDS ORDERED: FAMOTIDINE 20 MG (PEPCID) TABLET PO SCH (21:00)
[2017-08-24] MEDS: RT-ALBUTEROL/IPRATROPIUM 3 ML (DUONEB) VIAL IH SCH (22:33)
[2017-08-25] VITALS: BP 111/63
[2017-08-25] MEDS: methylPREDNISolone 40 MG/ML (Solu-MEDROL) VIAL IV SCH ×3 (00:28→12:38)
[2017-08-25] MEDS: RT-ALBUTEROL/IPRATROPIUM 3 ML (DUONEB) VIAL IH SCH ×3 (01:31→10:02)
[2017-08-25 04:07] VITALS: BP 129/66
[2017-08-25] MEDS: NS IV 1000 ML 1,000 ML IV SCH ×2 (04:55→12:50)
[2017-08-25 07:05] LABS: CHOLESTEROL 97 MG/DL (< 200); HDL CHOLESTEROL 41 MG/DL (40-60); TRIGLYCERIDES 40 MG/DL (<150); VLDL CHOLESTEROL 8 MG/DL (5-40)
[2017-08-25 08:30] VITALS: BP 138/80
[2017-08-25 09:39] LABS: CALCIUM 8.5 MG/DL (8.5-10.1); CREATININE SERUM 1.1 MG/DL (0.60-1.30); POTASSIUM 4.1 MMOL/L (3.6-5.0)
[2017-08-25] MEDS ORDERED: FLUT1AER INH (10:00)
[2017-08-25] MEDS ORDERED: ACET-2267 PO (10:00)
[2017-08-25] MEDS ORDERED: METO-333 PO (10:00)
[2017-08-25] MEDS ORDERED: ASPI-983 PO (10:00)
[2017-08-25] MEDS ORDERED: AMLO10TA2 PO (10:00)
[2017-08-25] MEDS ORDERED: LISI-552 PO (10:00)
[2017-08-25] MEDS ORDERED: ALBU18HF2 INH (10:00)
[2017-08-25] MEDS ORDERED: IPRA3AMP NEB (10:00)
[2017-08-25] MEDS ORDERED: PRD10T PO (11:42)
--- NOTE | 2017-08-25 11:46 | Discharge Instructions ---
Discharge [facility] Discharge Medications New, Converted or Re-Newed RX: Transmitted to Pharmacy New Medications: Prednisone (Prednisone) 10 Mg Tab 0 PO UD, #21 TAB 0 Refills Take 6 tabs (60mg) daily, decrease by 1 tab (10mg) daily. Continued Medications: Acetaminophen (Tylenol Extra Strength) 500 Mg Tablet 500-1000 MG PO Q4H PRN for PAIN-MILD, TAB Albuterol Sulfate (Ventolin Hfa) 18 Gm Hfa.aer.ad 2 PUFF INH Q4H PRN for WHEEZING, INHALER Amlodipine Besylate (Amlodipine Besylate) 10 Mg Tablet 5 MG PO DAILY, TAB TAKES 1/2 (10MG) TABLET Aspirin (Aspirin EC) 81 Mg Tablet.dr 81 MG PO DAILY, TAB Fluticasone/Vilanterol (Breo Ellipta 100-25 Mcg INH) 1 Each Blst.w.dev 1 PUFF INH DAILY, INHALER Ipratropium/Albuterol Sulfate (Iprat-Albut 0.5-3(2.5) mg/3 ml) 3 Ml Ampul.neb 3 ML NEB QID, EACH Lisinopril (Lisinopril) 20 Mg Tablet 20 MG PO DAILY, TAB Metoprolol Tartrate (Metoprolol Tartrate) 25 Mg Tablet 25 MG PO BID, TAB Patient Instructions Goal/Follow Up Appt: Follow up with Beryl Arnold on August 30 at 1:20 pm. Return to The [facility] For: Fever, worsening shortness of breath Activity & Diet Discharge Diet: Regular Diet Activity as Tolerated: Yes Copy Copies To 1: PINA Haro BETHANY N MD Aug 25, 2017 11:46 am
--- NOTE | 2017-08-25 12:42 | Short Stay Summary ---
History of Present Illness History of Present Illness Reason for visit/HPI 57 yo female presented to ER due to chest pain that started in the afternoon yesterday. She thought it might be heartburn and tried acid medication and drinking milk but it didn't help. She does admit she sometimes has food get caught low in her chest and have to vomit it up. She does not take acid foot caster regularly. She denies heart problems and reports she had a cath relatively recently and saw Cardiology in May. She also has COPD, but has been using her medications- duonebs QID, Breo BID and has had no fever and no increased cough. Her chest pain is gone today. Date of Admission Aug 24, 2017 at 5:50 pm Date of Discharge Aug 25, 2017 Time Seen by Provider: 10:22 Attending Physician Anant Valero MD Admitting Physician Davonte Montaon MD Consult Allergies and Home Medications Allergies Coded Allergies: amoxicillin (Verified Allergy, Unknown, 03/26/08) diphenhydramine (Verified Allergy, Unknown, 03/26/08) gabapentin (Unverified Allergy, Unknown, 11/09/14) Home Medications Acetaminophen 500 Mg Tablet, 500-1,000 MG PO Q4H PRN for PAIN-MILD, (Reported) Albuterol Sulfate 18 Gm Hfa.aer.ad, 2 PUFF INH Q4H PRN for WHEEZING, (Reported) Amlodipine Besylate 10 Mg Tablet, 5 MG PO DAILY, (Reported) TAKES 1/2 (10MG) TABLET Aspirin 81 Mg Tablet.dr, 81 MG PO DAILY, (Reported) Fluticasone/Vilanterol 1 Each Blst.w.dev, 1 PUFF INH DAILY, (Reported) Ipratropium/Albuterol Sulfate 3 Ml Ampul.neb, 3 ML NEB QID, (Reported) Lisinopril 20 Mg Tablet, 20 MG PO DAILY, (Reported) Metoprolol Tartrate 25 Mg Tablet, 25 MG PO BID, (Reported) Prednisone 10 Mg Tab, 0 PO UD, #21 Ref 0 Take 6 tabs (60mg) daily, decrease by 1 tab (10mg) daily. Prescribed by: ANANT VALERO on 08/25/17 1142 Past Izfymhl-Szkzrm-Kvutut Hx Patient Social History Alcohol Use: Denies Use Number of Drinks Today: AA Recreational Drug Use: No Smoking Status: Current Everyday Smoker Type Used: Cigarettes Physical Abuse Screen: No Sexual Abuse: No Recent Foreign Travel: No Contact w/other who traveled: No Recent Hopitalizations: No Recent Infectious Disease Expo: No Immunizations Up To Date Tetanus Booster (TDap): Unknown Pediatric: No Date of Pneumonia Vaccine: Jan 27, 2015 Date of Influenza Vaccine: Apr 23, 2017 Seasonal Allergies Seasonal Allergies: Yes Surgeries Yes Section, Gallbladder, Hysterectomy, Thyroidectomy Respiratory Yes COPD Cardiovascular Yes Hypertension Neurological Yes Headaches /Migraines Reproductive System Sexually Transmitted Disease: No HIV/AIDS: No 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 No Gastrointestinal Yes Gastroesophageal Reflux Musculoskeletal No Endocrine History of Endocrine Disorders: Yes (PARTIAL THYROIDECTOMY,HYPOGLYCEMIC) Endocrine Disorders: Hypothyroidsim HEENT Loss of Vision: Denies Hearing Impairment: Hard of Hearing Cancer Yes Uterine Psychosocial History of Psychiatric Problem: Yes Behavioral Health Disorders: Depression Integumentary History of Skin or Integumenta: No Blood Transfusions History of Blood Disorders: No Family Medical History Significant Family History: Diabetes, Stroke Constitutional: No chills, No fever EENTM: no symptoms reported Respiratory: cough Cardiovascular: see HPI Gastrointestinal: No abdominal pain, No constipation, No diarrhea, No nausea, vomiting 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: No dysuria Musculoskeletal: back pain Skin: No rash Psychiatric/Neurological: No Symptoms Reported Physical Exam Vital Signs Vital Sign - Last 12Hours 08/24/17 08/24/17 15:33 16:24 Temp 99.5 Pulse 83 Resp 20 B/P (MAP) 143/88 (106) Pulse Ox 95 O2 Delivery Room Air Capillary Refill : Less Than 3 Seconds General Appearance: No Apparent Distress Respiratory: No Accessory Muscle Use, No Respiratory Distress, Wheezing Cardiovascular: Regular Rate, Rhythm, No Murmur Gastrointestinal: Normal Bowel Sounds, Non Tender, Soft Extremity: No Pedal Edema Neurologic/Psychiatric: Alert, Normal Mood/Affect Skin: Normal Color, Warm/Dry Clinical Quality Measures DVT/VTE Risk/Contraindication: Risk Factor Score Per Nursin RFS Level Per Nursing on Admit: 4+=Very High Short Stay Diagnosis Discharge Diagnosis-Short Stay Admission Diagnosis: Chest pain COPD exacerbation GERD Final Discharge Diagnosis: Chest pain- not thought to be cardiac, no EKG changes, neg troponin. Discussed follow up with Cardiology if recurs COPD exacerbation- signicant wheezing with no hypoxia, given breathing treatments and IV steroids with improvement the morning of d/c, discharged with prednisone taper GERD- discussed she may need EGD given report of regurgitation and pain concerning for possible esophageal stricture or other pathology Conclusion Labs Laboratory Tests 08/24/17 15:25: White Blood Count 7.0, Red Blood Count 4.82, Hemoglobin 14.1, Hematocrit 43, Mean Corpuscular Volume 88, Mean Corpuscular Hemoglobin 29, Mean Corpuscular Hemoglobin Concent 33, Red Cell Distribution Width 13.5, Platelet Count 161, Mean Platelet Volume 10.1, Neutrophils (%) (Auto) 73, Lymphocytes (%) (Auto) 16 , Monocytes (%) (Auto) 8, Eosinophils (%) (Auto) 2, Basophils (%) (Auto) 0, Neutrophils # (Auto) 5.1, Lymphocytes # (Auto) 1.1, Monocytes # (Auto) 0.5, Eosinophils # (Auto) 0.2, Basophils # (Auto) 0.0, Prothrombin Time 13.0, INR Comment 1.0, Activated Partial Thromboplast Time 26, Sodium Level 133L, Potassium Level 4.0, Chloride Level 99, Carbon Dioxide Level 24, Anion Gap 10, Blood Urea Nitrogen 18, Creatinine 1.12, Estimat Glomerular Filtration Rate 50, BUN/Creatinine Ratio 16, Glucose Level 85, Calcium Level 8.9, Magnesium Level 1.6L, Total Bilirubin 0.6, Aspartate Amino Transf (AST/SGOT) 80H, Alanine Aminotransferase (ALT/SGPT) 39, Alkaline Phosphatase 127, Myoglobin 92.8H, Troponin I < 0.30, Total Protein 7.4, Albumin 3.9 08/25/17 05:44: Sodium Level 132L, Potassium Level 4.1, Chloride Level 101, Carbon Dioxide Level 19L, Anion Gap 12, Blood Urea Nitrogen 18, Creatinine 1.10, Estimat Glomerular Filtration Rate 51, BUN/Creatinine Ratio 16, Glucose Level 156H, Calcium Level 8.5, Triglycerides Level 40, Cholesterol Level 97, LDL Cholesterol Direct 41, VLDL Cholesterol 8, HDL Cholesterol 41 Microbiology 08/24/17 Influenza Types A,B Antigen (DANIELLA) - Final, Complete Conclusion/Plan See final discharge diagnosis Copy Copies To 1: PINA Haro BETHANY N MD Aug 25, 2017 12:42 pm
[2017-08-25 13:30] VITALS: BP 138/80
== END 2017-08-25 11:42 | disposition home or self-care (01) ==
LOC: EDUNIT# 14:53 → ER 14:55 → 4TH 17:50 → UNDOADMOB 17:50 → 4TH 18:28 → UNDODISOB 08-25 13:30
PROVIDERS: ADMIT Family Medicine; ATTEND Family Medicine
DX: J44.1 Chronic obstructive pulmonary disease with (acute) exacerbation (principal); R07.89 Other chest pain; F17.210 Nicotine dependence, cigarettes, uncomplicated; I10 Essential (primary) hypertension; K21.9 Gastro-esophageal reflux disease without esophagitis; E03.9 Hypothyroidism, unspecified; F32.9 Major depressive disorder, single episode, unspecified; Z79.82 Long term (current) use of aspirin; Z79.899 Other long term (current) drug therapy
CPT/HCPCS: 36415; 71046; 80048; 80053; 80061; 83735; 83874; 84484; 85025; 85610; 85730; 87804; 93005; 93041; 94640; 94760; 96374; 96375; 99211; G0378

== ENCOUNTER 2017-09-04 15:27 | Outpatient (CLI) | payer MEDICARE, MEDICAID ==
[~2017-09-04] VITALS: Ht 162.6 cm; Wt 69.9 kg
[~2017-09-04 15:27] MED LIST changes: +ACET-2267 PO; +ALBU18HF2 INH; +AMLO10TA2 PO; +ASPI-983 PO; +FLUT1AER INH; +IPRA3AMP NEB; +LISI-552 PO; +METO-333 PO; +PRD10T PO
== END 2017-09-04 15:51 ==
LOC: PREOP 15:27
PROVIDERS: ATTEND Surgery
DX: Z01.818 Encounter for other preprocedural examination (principal); K21.9 Gastro-esophageal reflux disease without esophagitis

== ENCOUNTER 2017-09-11 09:29 | Day surgery (SDC) | payer MEDICARE, MEDICAID ==
[~2017-09-11] VITALS: Ht 162.6 cm; Wt 69.9 kg
[2017-09-11] MEDS ORDERED: NS IV 500 ML 500 ML ONE (09:40)
[2017-09-11] MEDS ORDERED: NS IV 500 ML 500 ML IV ONE (09:45)
[2017-09-11] MEDS ORDERED: fentaNYL INJECTION 100 MCG/2 ML AMP IVP PRN (09:45)
[2017-09-11 09:55] VITALS: BP 146/87
--- NOTE | 2017-09-11 10:41 | Conscious Sedation/ASA ---
Conscious Sedation Pre-Proced Time Reviewed: 10:41 ASA Class: 2 Airway Mallampati Classification: ([place] appropriate class) I. II. III, IV Lungs Heart ASA score ASA 1: a normal healthy patient ASA 2: a patient with a mild systemic disease (mid diabetes, controlled hypertension, obesity ASA 3: a patient with a severe systemic disease that limits activity (angina , COPD, prior Myocardial infarction) ASA 4: a patient with an incapacitating disease that is a constant threat to life (CHF, renal failure) ASA 5: a moribund patient not expected to survive 24 hrs. (ruptured aneurysm) ASA 6: a declared brain patient whose organs are being harvested. For emergent operations, add the letter E after the classification Grade 1 Sedation Plan: Discussed options with patient/fam Note The patient is an appropriate candidate to undergo the planned procedure, sedation, and anesthesia. The patient immediately re-assessed prior to indication. JOSE VIRAMONTES MD Sep 11, 2017 10:41 am
--- NOTE | 2017-09-11 10:41 | History & Physicial ---
History of Present Illness History of Present Illness Reason for visit/HPI to undergo an upper endoscopy to investigate substernal pain and features of gastroesophageal reflux disease. Date of Admission 09/11/17 Date Seen by Provider: Sep 11, 2017 Time Seen by Provider: 10:39 I consulted on this patient on 09/11/17 10:39 Attending Physician Jose Viramontes MD Admitting Physician Davonte Montano MD Consult Allergies and Home Medications Allergies Coded Allergies: amoxicillin (Verified Allergy, Unknown, 03/26/08) diphenhydramine (Verified Allergy, Unknown, 03/26/08) gabapentin (Unverified Allergy, Unknown, 11/09/14) Home Medications Acetaminophen 500 Mg Tablet, 500-1,000 MG PO Q4H PRN for PAIN-MILD, (Reported) Albuterol Sulfate 18 Gm Hfa.aer.ad, 2 PUFF INH Q4H PRN for WHEEZING, (Reported) Amlodipine Besylate 10 Mg Tablet, 5 MG PO DAILY, (Reported) TAKES 1/2 (10MG) TABLET Aspirin 81 Mg Tablet.dr, 81 MG PO DAILY, (Reported) Fluticasone/Vilanterol 1 Each Blst.w.dev, 1 PUFF INH DAILY, (Reported) Ipratropium/Albuterol Sulfate 3 Ml Ampul.neb, 3 ML NEB QID, (Reported) Lisinopril 20 Mg Tablet, 20 MG PO DAILY, (Reported) Metoprolol Tartrate 25 Mg Tablet, 25 MG PO BID, (Reported) Past Qmypsbc-Ifbvxb-Jqzlwh Hx Patient Social History Marrital Status: Employed/Student: unemployed Type Used: Cigarettes Recent Foreign Travel: No Contact w/other who traveled: No Recent Hopitalizations: No Immunizations Up To Date Tetanus Booster (TDap): Unknown Pediatric: No Date of Pneumonia Vaccine: Jan 27, 2015 Date of Influenza Vaccine: Apr 23, 2017 Seasonal Allergies Seasonal Allergies: Yes Surgeries Yes Section, Gallbladder, Hysterectomy, Thyroidectomy Respiratory Yes COPD Cardiovascular Yes Hypertension Neurological Yes Headaches /Migraines Reproductive System Hx Reproductive Disorders: Yes Sexually Transmitted Disease: No HIV/AIDS: No 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 No Gastrointestinal Yes Gastroesophageal Reflux Musculoskeletal No Endocrine History of Endocrine Disorders: Yes (PARTIAL THYROIDECTOMY,HYPOGLYCEMIC) Endocrine Disorders: Hypothyroidsim HEENT Loss of Vision: Denies Hearing Impairment: Hard of Hearing Cancer Yes Uterine Psychosocial History of Psychiatric Problem: Yes Behavioral Health Disorders: Depression Integumentary History of Skin or Integumenta: No Blood Transfusions History of Blood Disorders: No Family Medical History Significant Family History: Diabetes, Stroke Family Hx: Cancer 19 MOTHER Family history: Diabetes mellitus 19 FATHER Stroke 19 FATHER Constitutional: no symptoms reported EENTM: no symptoms reported Respiratory: no symptoms reported Cardiovascular: see HPI Gastrointestinal: see HPI 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: no symptoms reported Musculoskeletal: no symptoms reported Skin: no symptoms reported Psychiatric/Neurological: No Symptoms Reported Physical Exam Vital Signs Capillary Refill : General Appearance: Anxious HEENT: Normal ENT Inspection Neck: Normal Inspection Respiratory: Lungs Clear Cardiovascular: Regular Rate, Rhythm Gastrointestinal: Non Tender Extremity: Normal Inspection Neurologic/Psychiatric: Alert, Oriented x3 Skin: Normal Color, Warm/Dry Assessment/Plan Assessment and Plan lady with substernal pain and symptoms of gastroesophageal reflux disease. 4 upper endoscopy. Problems: JOSE VIRAMONTES MD Sep 11, 2017 10:41 am
[2017-09-11] MEDS ORDERED: MIDAZOLAM 2 MG/2 ML (VERSED) VIAL ONE ×3 (11:24)
[2017-09-11] MEDS ORDERED: fentaNYL INJECTION 100 MCG/2 ML AMP ONE (11:24)
[2017-09-11] MEDS ORDERED: HURRICAINE EXT TUBE (BENZOCAINE) ONE (11:25)
[2017-09-11] MEDS: MIDAZOLAM 2 MG/2 ML (VERSED) VIAL IVP PRN ×2 (11:40→11:45)
--- NOTE | 2017-09-11 12:02 | Endo Procedure Record ---
Endo Procedure Report Date of Procedure Last Colonoscopy: Yes (unsure) Sep 11, 2017 Surgeon (s) JOSE VIRAMONTES MD Post Procedure/Op Diagnosis grade 2 esophagitis. Antral erosions Procedure Performed EGD with antral biopsy for H. pylori Description of Procedure Anesthesia Type: Conscious Sedation Specimen(s) collected/removed antral mucosa for H. pylori Description of the Procedure Indication for the procedure: This lady came in for an upper endoscopy to evaluate substernal pain and symptoms of reflux disease. Informed consent was obtained after reviewing the procedure in detail. Description of procedure: She was placed in left lateral decubitus position and her vital signs were monitored. Conscious sedation was achieved using Versed and fentanyl. The flexible gastroscope was introduced down the esophagus, past the ,, into the proximal duodenum. Findings: Esophagus: A short hiatal hernia with grade 2 esophagitis Stomach: 2 shallow erosions at the antrum. Biopsy for H. pylori was obtained. Duodenum: Normal She tolerated the procedure well and was taken back to the nursing area in a stable condition. Impression: Epigastric pain and symptoms of reflux disease. Esophagitis and antral erosions. Helicobacter status pending. Copies To: DELFIN KEARNS MD, XAVIER M MD Sep 11, 2017 12:02 pm
[2017-09-11] MEDS ORDERED: PANT40TA2 PO (12:05)
--- NOTE | 2017-09-11 12:06 | Discharge Inst-Simple/Standard ---
Discharge Inst-Standard Discharge Medications New, Converted or Re-Newed RX: RX on Chart Patient Instructions/Follow Up Plan of Care/Instructions/FU: follow-up with her primary Activity as Tolerated: Yes Discharge Diet: No Restrictions JOSE VIRAMONTES MD Sep 11, 2017 12:05 pm
[2017-09-11 12:15] VITALS: BP 136/88
[2017-09-11] MEDS ORDERED: HURRICAINE EXT TUBE (BENZOCAINE) XX ONE (12:15)
[2017-09-11 12:45] VITALS: BP 140/89
[2017-09-11 13:00] VITALS: BP 140/89
== END 2017-09-11 13:00 | disposition home or self-care (01) ==
LOC: ENDO 09:29
PROVIDERS: ATTEND Surgery
DX: K21.0 Gastro-esophageal reflux disease with esophagitis (principal); K25.9 Gastric ulcer, unspecified as acute or chronic, without hemorrhage or perforation; Z88.1 Allergy status to other antibiotic agents; Z88.8 Allergy status to other drugs, medicaments and biological substances; Z79.82 Long term (current) use of aspirin; Z79.899 Other long term (current) drug therapy; F17.210 Nicotine dependence, cigarettes, uncomplicated; J44.9 Chronic obstructive pulmonary disease, unspecified; I10 Essential (primary) hypertension

== ENCOUNTER 2017-10-15 20:12 | Emergency (ER) | payer MEDICARE, MEDICAID ==
[~2017-10-15] VITALS: Ht 157.5 cm; Wt 68.0 kg
[~2017-10-15 20:12] MED LIST changes: +PANT40TA2 PO
[2017-10-15] MEDS ORDERED: ORPHENADRINE 60 MG/2 ML (NORFLEX) AMP IM ONE (20:45)
[2017-10-15] MEDS ORDERED: predniSONE 20 MG TAB PO ONE (20:45)
[2017-10-15] MEDS ORDERED: KETOROLAC 30 MG/ML VIAL IM ONE (20:45)
[2017-10-15 21:01] LABS: BILIRUBIN,URINE NEGATIVE (NEGATIVE); CLARITY,URINE CLEAR; COLOR,URINE YELLOW; GLUCOSE, URINE (UA) NEGATIVE (NEGATIVE); KETONES,URINE NEGATIVE (NEGATIVE); LEUKOCYTE ESTERASE ,URINE NEGATIVE (NEGATIVE); NITRITE,URINE NEGATIVE (NEGATIVE); PH,URINE 6 (5-9); PROTEIN,URINE NEGATIVE (NEGATIVE); UROBILINOGEN,URINE NORMAL (NORMAL)
[2017-10-15 21:08] LABS: BACTERIA,URINE NEGATIVE /HPF; RBC,URINE RARE /HPF; WBC,URINE RARE /HPF
[2017-10-15 21:09] LABS: SQUAMOUS EPITHELIAL CELL,UR 0-2 /HPF
[2017-10-15] MEDS ORDERED: PRD20T PO (21:40)
--- NOTE | 2017-10-15 21:41 | ED Back Pain ---
General Chief Complaint: Back Problems Stated Complaint: LOWER BACK PAIN Nursing Triage Note: PT REPORTS LOWER BACK PAIN SEVERE SINCE YESTERDAY AFTERNOON WHEN "MAKING A SANDWICH". Nursing Sepsis Screen: No Definite Risk Source of Information: Patient Exam Limitations: No Limitations History of Present Illness Date Seen by Provider: Oct 15, 2017 Time Seen by Provider: 20:32 Initial Comments This 57, presents to the emergency room with complaints of pain across her lower back that seemed to have been triggered during cough yesterday afternoon. She has radiation of the pain to her right hip. She denies any urinary changes. Patient is noted to be wheezing in the exam room. She has history of COPD and uses nebulizer treatments frequently at home. She continues to smoke. She denies any injury to her back. Allergies and Home Medications Allergies Coded Allergies: amoxicillin (Verified Allergy, Unknown, 03/26/08) diphenhydramine (Verified Allergy, Unknown, 03/26/08) gabapentin (Unverified Allergy, Unknown, 11/09/14) Home Medications Acetaminophen 500 Mg Tablet, 500-1,000 MG PO Q4H PRN for PAIN-MILD, (Reported) Albuterol Sulfate 18 Gm Hfa.aer.ad, 2 PUFF INH Q4H PRN for WHEEZING, (Reported) Amlodipine Besylate 10 Mg Tablet, 5 MG PO DAILY, (Reported) TAKES 1/2 (10MG) TABLET Aspirin 81 Mg Tablet.dr, 81 MG PO DAILY, (Reported) Fluticasone/Vilanterol 1 Each Blst.w.dev, 1 PUFF INH DAILY, (Reported) Ipratropium/Albuterol Sulfate 3 Ml Ampul.neb, 3 ML NEB QID, (Reported) Lisinopril 20 Mg Tablet, 20 MG PO DAILY, (Reported) Metoprolol Tartrate 25 Mg Tablet, 25 MG PO BID, (Reported) Pantoprazole Sodium 40 Mg Tablet.dr, 40 MG PO DAILY Prescribed by: JOSE VIRAMONTES on 09/11/17 1205 Prednisone 20 Mg Tab, 40 MG PO DAILY Prescribed by: LOUISE DE LA TORRE on 10/15/17 0540 Patient Home Medication List Home Medication List Reviewed: Yes Constitutional: no symptoms reported EENTM: no symptoms reported Respiratory: see HPI Cardiovascular: no symptoms reported Gastrointestinal: no symptoms reported 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: no symptoms reported : No Musculoskeletal: see HPI Skin: no symptoms reported Psychiatric/Neurological: No Symptoms Reported Past Jsplkpz-Nlixci-Ioabxi Hx Patient Social History Alcohol Use: Denies Use Recreational Drug Use: No Smoking Status: Current Everyday Smoker Type Used: Cigarettes 2nd Hand Smoke Exposure: No Recent Foreign Travel: No Contact w/Someone Who Travel: No Recent Infectious Disease Expo: No Recent Hopitalizations: No Immunizations Up To Date Tetanus Booster (TDap): Unknown PED Vaccines UTD: No Date of Pneumonia Vaccine: Jan 27, 2015 Date of Influenza Vaccine: Apr 23, 2017 Seasonal Allergies Seasonal Allergies: Yes Surgeries History of Surgeries: Yes Surgeries: Abdominal (hiatal hernia), Section, Gallbladder, Hysterectomy, Thyroidectomy Respiratory History of Respiratory Disorde: Yes Respiratory Disorders: COPD Cardiovascular History of Cardiac Disorders: Yes Cardiac Disorders: Hypertension Neurological History of Neurological Disord: Yes Neurological Disorders: Headaches /Migraines Reproductive System : No Hx Reproductive Disorders: Yes Sexually Transmitted Disease: No HIV/AIDS: No Female Reproductive Disorders: Menstrual 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 History of 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 Disor: Yes 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 Disorders: Renal Failure Gastrointestinal History of Gastrointestinal Di: Yes (epigastric pain) Gastrointestinal Disorders: Gastroesophageal Reflux Musculoskeletal History of Musculoskeletal Dis: No Endocrine History of Endocrine Disorders: Yes (PARTIAL THYROIDECTOMY,HYPOGLYCEMIC) Endocrine Disorders: Hypothyroidsim HEENT History of HEENT Disorders: No Loss of Vision: Denies Hearing Impairment: Hard of Hearing Cancer History of Cancer: Yes Cancer: Uterine Psychosocial History of Psychiatric Problem: Yes Behavioral Health Disorders: Depression Integumentary History of Skin or Integumenta: No Blood Transfusions History of Blood Disorders: No Family Medical History Significant Family History: Diabetes, Stroke Family Medial History: Cancer 19 MOTHER Family history: Diabetes mellitus 19 FATHER Stroke 19 FATHER Physical Exam Vital Signs Vital Signs - First Documented 10/15/17 20:25 Temp 97.0 Pulse 79 Resp 22 B/P (MAP) 147/95 (112) Pulse Ox 94 O2 Delivery Room Air Capillary Refill : Less Than 3 Seconds General Appearance: No Apparent Distress, WD/WN HEENT: PERRL/EOMI, Normal ENT Inspection Neck: Normal Inspection Cardiovascular: Regular Rate, Rhythm, No Murmur, Normal Peripheral Pulses Respiratory: No Accessory Muscle Use, No Respiratory Distress, Wheezing Gastrointestinal: Normal Bowel Sounds, Non Tender, Soft Back: Normal Inspection, Vertebral Tenderness (lumbar spine), Other ( tenderness in the lumbar paraspinous muscles bilaterally) Extremity: Normal Inspection, No Pedal Edema Neurologic/Psychiatric: Alert, Oriented x3, No Motor/Sensory Deficits, Normal Mood/Affect, district agent II-XII Norm as Tested Skin: Normal Color, Warm/Dry Progress/Results/Core Measures Results/Orders Lab Results Laboratory Tests Test 10/15/17 20:53 Range/Units Urine Color YELLOW Urine Clarity CLEAR Urine pH 6 5-9 Urine Specific [place] 1.015 L 1.016-1.022 Urine Protein NEGATIVE NEGATIVE Urine Glucose (UA) NEGATIVE NEGATIVE Urine Ketones NEGATIVE NEGATIVE Urine Nitrite NEGATIVE NEGATIVE Urine Bilirubin NEGATIVE NEGATIVE Urine Urobilinogen NORMAL NORMAL MG/DL Urine Leukocyte Esterase NEGATIVE NEGATIVE Urine RBC (Auto) 1+ H NEGATIVE Urine RBC RARE /HPF Urine WBC RARE /HPF Urine Squamous Epithelial Cells 0-2 /HPF Urine Crystals NONE /LPF Urine Bacteria NEGATIVE /HPF Urine Casts NONE /LPF Urine Mucus NEGATIVE /LPF Urine Culture Indicated NO My Orders Orders - LOUISE LARSON MD Ketorolac Injection (Toradol Injection) (10/15/17 20:45) Orphenadrine Injection (Norflex Injectio (10/15/17 20:45) Prednisone Tablet (Deltasone Tablet) (10/15/17 20:45) Ua Culture If Indicated (10/15/17 20:39) Medications Given in ED Current Medications Medications Dose Ordered Sig/Sahil Route Start Time Stop Time Status Last Admin Dose Admin Ketorolac Tromethamine 30 mg ONCE ONCE IM 10/15/17 20:45 10/15/17 20:46 DC 10/15/17 21:00 30 MG Orphenadrine Citrate 60 mg ONCE ONCE IM 10/15/17 20:45 10/15/17 20:46 DC 10/15/17 21:00 60 MG Prednisone 40 mg ONCE ONCE PO 10/15/17 20:45 10/15/17 20:46 DC 10/15/17 21:00 40 MG Vital Signs/I&O Vital Sign - Last 12Hours 10/15/17 10/15/17 10/15/17 10/15/17 20:25 21:00 21:00 21:46 Temp 97.0 97.0 97.0 97.0 Pulse 79 79 Resp 22 22 B/P (MAP) 147/95 (112) 147/95 (112) Pulse Ox 94 94 O2 Delivery Room Air Room Air Blood Pressure Mean: 112 Progress Note : Progress Note Patient was treated with Toradol, Norflex, and prednisone. Prednisone should help both her COPD and her back pain. She had improvement in symptoms prior to discharge. Patient was strongly encouraged to quit smoking and was provided with information about pulmonary rehabilitation and the smoking cessation class. Departure Impression Impression: Primary Impression: Lower back pain Qualified Codes: M54.5 - Low back pain Additional Impression: COPD (chronic obstructive pulmonary disease) Qualified Codes: J44.9 - Chronic obstructive pulmonary disease, unspecified Disposition: HOME, SELF-CARE Condition: Improved Departure-Patient Inst. Decision time for Depature: 21:38 Referrals: [facility] (PCP/Family) Primary Care Physician Patient Instructions: COPD Including Emphysema (DC), Low Back Pain (DC), Quitting Smoking Add. Discharge Instructions: For your pain you may take ibuprofen up to 400 mg every 6 hours as needed and/ or Tylenol (acetaminophen) up to 1000 mg every 6 hours. Use the prednisone as prescribed for both treatment of your back pain and COPD. Work toward quitting smoking. Seek assistance from your primary care provider. Information about the pulmonary rehabilitation program and the smoking cessation classes at [facility] has been provided on these instructions. Follow-up with your primary care provider later this week. Return to care if symptoms are worsening. All discharge instructions reviewed with patient and/or family. Voiced understanding. Scripts Prednisone (Prednisone) 20 Mg Tab 40 MG PO DAILY, #6 TAB Prov: LOUISE LARSON MD 10/15/17 LOUISE LARSON MD Oct 15, 2017 21:41
[2017-10-15 21:46] VITALS: BP 147/95
[2017-10-16] MEDS ORDERED: PRD20T PO (04:41)
== END 2017-10-15 21:46 | disposition home or self-care (01) ==
LOC: EDUNIT# 20:12 → ER 20:14
DX: M54.5 Low back pain (principal); J44.9 Chronic obstructive pulmonary disease, unspecified; F32.9 Major depressive disorder, single episode, unspecified; E03.9 Hypothyroidism, unspecified; K21.9 Gastro-esophageal reflux disease without esophagitis; G43.909 Migraine, unspecified, not intractable, without status migrainosus; I10 Essential (primary) hypertension; F17.210 Nicotine dependence, cigarettes, uncomplicated; Z87.59 Personal history of other complications of pregnancy, childbirth and the puerperium; Z90.710 Acquired absence of both cervix and uterus; Z87.19 Personal history of other diseases of the digestive system; Z79.52 Long term (current) use of systemic steroids; Z88.1 Allergy status to other antibiotic agents; Z88.8 Allergy status to other drugs, medicaments and biological substances
CPT/HCPCS: 81000; 96372; 99284

== ENCOUNTER 2018-02-02 18:30 | Emergency (ER) | payer MEDICARE, MEDICAID ==
[~2018-02-02] VITALS: Ht 157.5 cm; Wt 74.8 kg
[~2018-02-02 18:30] MED LIST changes: -IPRA3AMP NEB; +IPRA3AMP31 NEB
[2018-02-02] MEDS ORDERED: RT-ALBUTEROL/IPRATROPIUM 3 ML (DUONEB) VIAL INH ONE (18:45)
[2018-02-02] MEDS ORDERED: HYDROcodone/APAP 5 MG/325 MG (LORTAB) TAB PO ONE (18:45)
[2018-02-02] MEDS ORDERED: RT-ALBUTEROL/IPRATROPIUM 3 ML (DUONEB) VIAL ONE (18:46)
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
--- NOTE | 2018-02-02 19:29 | Diagnostic Imaging Report ---
EXAMINATION: Three views of the right elbow. INDICATION: Fall. Right elbow pain. FINDINGS: Alignment of the elbow appears normal. There is a normal anterior humeral and radiocapitellar line. There is no elevation of the fat pads to suggest the presence of a joint effusion. No acute fracture is evident. IMPRESSION: No evidence of elbow malalignment, fracture or joint effusion. Dictated by: Dictated on workstation # [id number]
--- NOTE | 2018-02-02 19:29 | Diagnostic Imaging Report ---
PA and lateral chest compared to prior study from August 24, 2017. INDICATION: Fall with right rib pain. FINDINGS: The lungs appear clear without focal infiltrate or effusion. There is no pneumothorax. Heart size and mediastinal contours appear appropriate. Pulmonary vascularity appears within normal limits. There is no evidence of failure. There is no radiographic evidence of an acute rib fracture. IMPRESSION: 1. No radiographic evidence of an acute cardiopulmonary process. 2. No evidence of rib fracture. Dictated by: Dictated on workstation # [id number]
--- NOTE | 2018-02-02 19:30 | Diagnostic Imaging Report ---
EXAMINATION: Right-sided rib series. INDICATION: Fall, right rib pain. TECHNIQUE: Three views of the right-sided ribs were provided. COMPARISON: Chest radiograph from the same day. FINDINGS: These three views of the right-sided ribs fail to demonstrate plain film radiographic evidence of a right rib fracture. IMPRESSION: Negative right-sided rib series. Dictated by: Dictated on workstation # [id number]
--- NOTE | 2018-02-02 19:30 | Diagnostic Imaging Report ---
EXAMINATION: Left knee series. INDICATION: Fall. Knee pain. FINDINGS: Alignment of the left knee appears normal. There is no evidence of an acute fracture. There appears to possibly be a small joint effusion. The soft tissues are otherwise unremarkable. IMPRESSION: 1. Possible small suprapatellar joint effusion. There is no malalignment or evidence of an acute fracture. Dictated by: Dictated on workstation # [id number]
[2018-02-02] MEDS ORDERED: ACHD5005 PO (20:14)
[2018-02-02] MEDS ORDERED: CYCL10TA9 PO (20:14)
[2018-02-02 20:21] VITALS: BP 156/95
== END 2018-02-02 20:21 | disposition home or self-care (01) ==
LOC: EDUNIT# 18:30 → ER 18:33
DX: S20.211A Contusion of right front wall of thorax, initial encounter (principal); S50.02XA Contusion of left elbow, initial encounter; S80.02XA Contusion of left knee, initial encounter; J44.1 Chronic obstructive pulmonary disease with (acute) exacerbation; I10 Essential (primary) hypertension; G43.909 Migraine, unspecified, not intractable, without status migrainosus; F32.9 Major depressive disorder, single episode, unspecified; R40.2142 Coma scale, eyes open, spontaneous, at arrival to emergency department; R40.2252 Coma scale, best verbal response, oriented, at arrival to emergency department; R40.2362 Coma scale, best motor response, obeys commands, at arrival to emergency department; K21.9 Gastro-esophageal reflux disease without esophagitis; E03.9 Hypothyroidism, unspecified; F17.210 Nicotine dependence, cigarettes, uncomplicated; Z85.42 Personal history of malignant neoplasm of other parts of uterus; Z88.1 Allergy status to other antibiotic agents; Z88.8 Allergy status to other drugs, medicaments and biological substances; Z87.59 Personal history of other complications of pregnancy, childbirth and the puerperium; Z90.710 Acquired absence of both cervix and uterus; Z90.89 Acquired absence of other organs; Z79.51 Long term (current) use of inhaled steroids; Z79.82 Long term (current) use of aspirin; Z79.52 Long term (current) use of systemic steroids; V18.2XXA Unspecified pedal cyclist injured in noncollision transport accident in nontraffic accident, initial encounter
CPT/HCPCS: 71046; 71100; 73080; 73562; 94640; 94664

== ENCOUNTER → 2018-10-19 | Outpatient (CLI) | payer MEDICARE, MEDICAID ==
[~2018-10-19] MED LIST changes: +ACHD5005 PO; -AMLO10TA2 PO; +AMLO10TA7 PO; +CYCL10TA9 PO
--- NOTE | 2018-10-19 08:49 | Diagnostic Imaging Report ---
INDICATION: Routine screening. Comparison is made with prior mammogram from 06/21/2016 and 05/08/2015. 2-D and 3-D bilateral screening mammography was performed with a Computer Aided Detection (CAD) system. FINDINGS: Scattered fibronodular densities are identified bilaterally. Lobulated and circumscribed nodular densities in both breasts appear to be stable and consistent with benign etiologies. No new mass or malignant appearing microcalcifications are seen. Axillae are unremarkable. IMPRESSION: No mammographic features suspicious for malignancy are identified. ACR BI-RADS Category 2: Benign findings. Result letter will be mailed to the patient. Note: At least 10% of breast cancer is not imaged by mammography. Dictated by: Dictated on workstation # [id number]
== END ==
LOC: RAD 07:47
PROVIDERS: ATTEND Nurse Practitioner Community Health
DX: Z12.31 Encounter for screening mammogram for malignant neoplasm of breast (principal)
CPT/HCPCS: 77067

== ENCOUNTER → 2018-12-18 | Outpatient (CLI) | payer MEDICARE, MEDICAID ==
[~2018-12-18] MED LIST changes: +CATHETER FLUSH 10 ML SYR IV PRN; +REGADENOSON 0.4 MG/5 ML SYR (LEXISCAN) IV ONE
[2018-12-18 13:19] VITALS: BP 163/98
--- NOTE | 2018-12-18 18:50 | STRESS TEST ---
DATE OF SERVICE: 12/18/2018 RESTING AND POST REGADENOSON TECHNETIUM-99M TETROFOSMIN SPECT CT IMAGING ORDERING PHYSICIAN: Dr. Brewer. PRIMARY PHYSICIAN: [facility]. CLINICAL DIAGNOSIS: Chest discomfort. Baseline images were carried out after injection of 10.92 mCi technetium-99 Tetrofosmin. This was followed by 0.4 mg regadenoson and 29.3 mCi technetium-99 Tetrofosmin for stress imaging. The electrocardiogram showed sinus rhythm at baseline. There was nonspecific ST-T abnormality that did not change significantly with the regadenoson infusion. The patient tolerated the procedure well. Review of images at rest and following stress does not indicate any significant perfusion defects consistent with significant myocardial ischemia or infarction. Gated images showed normal global left ventricular systolic function with normal regional wall motion. Left ventricular ejection fraction is calculated to be 63%. CONCLUSIONS: 1. No evidence of any significant myocardial ischemia or infarction on this study. 2. Normal regional wall motion. 3. Normal global left ventricular systolic function with a calculated ejection fraction of 63%. Job ID: [id number] DocumentID: [id number] Dictated Date: 12/18/2018 17:07:55 Sales Account Director Date: 12/18/2018 18:50:13 Dictated By: ALEKSEY BREWER MD, MA, FACP, FACC,
== END ==
LOC: CARD 11:04
PROVIDERS: ATTEND Internal Medicine Cardiovascular Disease
DX: R07.89 Other chest pain (principal); I77.89 Other specified disorders of arteries and arterioles; I73.9 Peripheral vascular disease, unspecified; Z72.0 Tobacco use
CPT/HCPCS: 78452; 93017

== ENCOUNTER → 2020-08-18 | Outpatient (CLI) | payer MEDICARE, MEDICAID ==
[~2020-08-18] MED LIST changes: +AMLO-251 PO; -AMLO10TA7 PO; +ASPI-1238 PO; -ASPI-983 PO; -CATHETER FLUSH 10 ML SYR IV PRN; -REGADENOSON 0.4 MG/5 ML SYR (LEXISCAN) IV ONE
[2020-08-18 09:44] LABS: CALCIUM 9.1 MG/DL (8.5-10.1); CREATININE SERUM 1.14 MG/DL (0.60-1.30); POTASSIUM 4.4 MMOL/L (3.6-5.0)
== END ==
LOC: LAB 09:01
PROVIDERS: ATTEND Nurse Practitioner Family
DX: I10 Essential (primary) hypertension (principal)
CPT/HCPCS: 36415; 80048; 83735

== ENCOUNTER → 2020-08-18 | Outpatient (CLI) | payer MEDICARE, MEDICAID ==
[~2020-08-18] MED LIST changes: +RT-ALBUTEROL SULF 2.5 MG/3 ML PRE-MIX VIAL INH ONE
== END ==
LOC: RT 08:00
PROVIDERS: ATTEND Nurse Practitioner Family
DX: J44.9 Chronic obstructive pulmonary disease, unspecified (principal); F17.200 Nicotine dependence, unspecified, uncomplicated
CPT/HCPCS: 94060; 94726; 94729

== ENCOUNTER → 2020-09-04 | Outpatient (CLI) | payer MEDICARE, MEDICAID ==
[~2020-09-04] MED LIST changes: -LISI-552 PO; +LISI20TA26 PO; -RT-ALBUTEROL SULF 2.5 MG/3 ML PRE-MIX VIAL INH ONE
--- NOTE | 2020-09-04 08:48 | Diagnostic Imaging Report ---
CT Lung Screening INDICATION:40 pack-year smoking history, also a history of uterine cancer. TECHNIQUE: Noncontrast, low-dose CT imaging performed according to the lung cancer screening protocol. Auto Exposure Controls were utilize during the CT exam to meet ALARA standards for radiation dose reduction. COMPARISON:09/21/2009 FINDINGS:There is a new soft tissue density well-defined solitary pulmonary nodule, left lower lobe at the far posterior inferior sulcus. No other lung mass. No spiculated lesion. No hilar or mediastinal lymphadenopathy. No acute or suspect soft tissue osseous chest wall lesion. Visualized uninfused upper abdomen unremarkable. Nodular opacities in the bilateral breasts are not clearly changed when differing modalities taken into account from most recent available myelography performed 06/21/2016 however if that study is not up-to-date, repeat bilateral mammography recommended. No pleural or pericardial effusion. There is trace atelectasis in the left base at the caudal aspect of the lingular segment upper lobe. IMPRESSION: 1. New juxtapleural solid soft tissue density nodule, left lower lobe 6 mm. While likely benign, this requires 6 month follow-up low-dose CT chest. 2. Bilateral breast nodularity has been demonstrated on previous mammography but most recently available for review. 2016, repeat bilateral diagnostic mammography on an outpatient basis recommended. LUNG-RADS CATEGORY:LUNG RADS category 3. MODIFIER:None OTHER SIGNIFICANT FINDINGS:As above Dictated by: Dictated on workstation # [id number]
== END ==
LOC: RAD 08:02
PROVIDERS: ATTEND Nurse Practitioner Family
DX: J44.9 Chronic obstructive pulmonary disease, unspecified (principal); R91.1 Solitary pulmonary nodule; R92.8 Other abnormal and inconclusive findings on diagnostic imaging of breast; Z87.891 Personal history of nicotine dependence; Z85.42 Personal history of malignant neoplasm of other parts of uterus
CPT/HCPCS: 71271

== ENCOUNTER → 2020-10-12 | Outpatient (CLI) | payer MEDICARE, MEDICAID ==
--- NOTE | 2020-10-12 09:00 | Diagnostic Imaging Report ---
INDICATION: Routine screening. COMPARISON: 10/19/2018 and 06/21/2016. TECHNIQUE: 2D and 3D bilateral screening mammography was performed with CAD. FINDINGS: Both breasts are heterogeneously dense, limiting the sensitivity of mammography. The circumscribed masses in both breasts appear stable. There are benign calcifications in both breasts. No spiculated mass or malignant appearing microcalcifications are seen. The axillae are unremarkable. IMPRESSION: No mammographic features suspicious for malignancy are identified. ACR BI-RADS Category 2: Benign findings. Result letter will be mailed to the patient. Note: At least 10% of breast cancer is not imaged by mammography. Dictated by: Dictated on workstation # [id number]
== END ==
LOC: RAD 07:30
PROVIDERS: ATTEND Nurse Practitioner
DX: Z12.31 Encounter for screening mammogram for malignant neoplasm of breast (principal)
CPT/HCPCS: 77063; 77067

== ENCOUNTER → 2021-03-23 | Outpatient (CLI) | payer MEDICARE, MEDICAID ==
--- NOTE | 2021-03-23 09:32 | Diagnostic Imaging Report ---
EXAMINATION: CT chest without contrast (lung screening). TECHNIQUE: Multiple contiguous axial images were obtained through the chest without the use of intravenous contrast according to lung cancer screening protocol. All CT scans use one or more of the following dose optimizing techniques: automated exposure control, MA and/or KvP adjustment based on patient size and exam type or iterative reconstruction. HISTORY: 40 pack year history of smoking. COMPARISON: 09/04/2020 FINDINGS: There is no edema or pneumonia. No pleural effusion. No pneumothorax. There is a 7 mm average diameter left lower lobe pulmonary nodule with suggestion of calcification of the soft tissue windows but is unchanged from prior exam. There is mild mucous plugging and bronchial wall thickening consistent with chronic bronchitis. There is no axillary or supraclavicular lymphadenopathy. There is no mediastinal lymphadenopathy. Heart size is normal. There are no coronary artery calcifications. No pericardial effusion. Aorta is normal in caliber. Limited views of the upper abdomen are unremarkable. There are no suspicious osseus lesions. IMPRESSION: 1. Stable left lower lobe nodule with suggestion of internal calcification likely representing a granuloma. Patient can return to annual screening. LUNG-RADS CATEGORY: 2 MODIFIER: None. Dictated by: Dictated on workstation # [id number]
== END ==
LOC: RAD 09:15
PROVIDERS: ATTEND Nurse Practitioner Family
DX: Z12.2 Encounter for screening for malignant neoplasm of respiratory organs (principal); R91.1 Solitary pulmonary nodule; Z87.891 Personal history of nicotine dependence
CPT/HCPCS: 71271

== ENCOUNTER 2021-05-24 12:24 | Emergency (ER) | payer MEDICARE, MEDICAID ==
[~2021-05-24] VITALS: Ht 157 cm; Wt 70.0 kg
[2021-05-24 13:05] LABS: BASOPHILS # (AUTO) 0.1 10^3/uL (0.0-0.1); BASOPHILS % (AUTO) 1 % (0-10); EOSINOPHILS # (AUTO) 0.3 10^3/uL (0.0-0.3); EOSINOPHILS % (AUTO) 3 % (0-10); HEMATOCRIT 43 % (35-52); HEMOGLOBIN 13.6 g/dL (11.5-16.0); LYMPHOCYTES # (AUTO) 2.1 10^3/uL (1.0-4.0); LYMPHOCYTES % (AUTO) 21 % (12-44); MEAN CORPUSCULAR HEMOGLOBIN 29 pg (25-34); MEAN CORPUSCULAR HGB CONC 32 g/dL (32-36); MEAN CORPUSCULAR VOLUME 92 fL (80-99); MEAN PLATELET VOLUME 9.1 fL (9.0-12.2); MONOCYTES # (AUTO) 0.6 10^3/uL (0.0-1.0); MONOCYTES % (AUTO) 6 % (0-12); NEUTROPHILS # (AUTO) 6.8 10^3/uL (1.8-7.8); NEUTROPHILS % (AUTO) 68 % (42-75); PLATELET COUNT 207 10^3/uL (130-400)
--- NOTE | 2021-05-24 13:10 | ED General ---
General Chief Complaint: Cough/Cold/Flu Symptoms Stated Complaint: SHORTNESS OF BREATH, LOW02 Nursing Triage Note: ARRIVED VIA AMB TO ROOM 09 ET SENT OVER FROM [facility]. STATES SHE HAS HAD A COUGH AND SORETHROAT X4 DAYS. PT HAS HX OF COPD AND WEARS OXYGEN. FEELS MORE SOA THEN USUAL. Source of Information: Patient Exam Limitations: No Limitations History of Present Illness Date Seen by Provider: May 24, 2021 Time Seen by Provider: 13:09 Initial Comments To ER from urgent care with reports of cough sore throat and shortness of breath with increased wheezing for 3 to 4 days. History of COPD oxygen dependent at night. No fevers. Unvaccinated against Covid. Timing/Duration: 3-4 Days Severity: Moderate Associated Systoms: Cough Allergies and Home Medications Allergies Coded Allergies: amoxicillin (Verified Allergy, Unknown, 03/26/08) diphenhydramine (Verified Allergy, Unknown, 03/26/08) gabapentin (Unverified Allergy, Unknown, 11/09/14) Patient Home Medication List Home Medication List Reviewed: Yes Acetaminophen (Tylenol Extra Strength) 500 Mg Tablet, 500-1,000 MG PO Q4H PRN for PAIN-MILD, (Reported) Entered as Reported by: CHIP SANCHEZ on 08/25/17 1000 Albuterol Sulfate (Ventolin Hfa) 18 Gm Hfa.aer.ad, 2 PUFF INH Q4H PRN for WHEEZING, (Reported) Entered as Reported by: CHIP SANCHEZ on 08/25/17 1000 Amlodipine Besylate (Amlodipine Besylate) 10 Mg Tablet, 5 MG PO DAILY, (Reported) Entered as Reported by: CHIP SANCHEZ on 08/25/17 1000 Aspirin (Aspirin EC) 81 Mg Tablet.dr, 81 MG PO DAILY, (Reported) Entered as Reported by: CHIP SANCHEZ on 08/25/17 1000 Cefuroxime Axetil (Cefuroxime) 250 Mg Tablet, 250 MG PO BID Prescribed by: WAQAS CAMACHO on 05/24/21 1400 Cyclobenzaprine HCl (Cyclobenzaprine HCl) 10 Mg Tablet, 10 MG PO HS Prescribed by: LOUISE DE LA TORRE on 02/02/182013 Fluticasone/Vilanterol (Breo Ellipta 100-25 Mcg INH) 1 Each Blst.w.dev, 1 PUFF INH DAILY, (Reported) Entered as Reported by: CHIP SANCHEZ on 08/25/17 1000 Hydrocodone Bit/Acetaminophen (Lortab 5 Mg Tablet) 1 Tab Tab, 1 TAB PO Q6H PRN for PAIN-MODERATE TO SEVERE Prescribed by: LOUISE DE LA TORRE on 02/02/182013 Ipratropium/Albuterol Sulfate (Iprat-Albut 0.5-3(2.5) mg/3 ml) 3 Ml Ampul.neb, 3 ML NEB QID, (Reported) Entered as Reported by: CHIP SANCHEZ on 08/25/17 1000 Lisinopril (Lisinopril) 20 Mg Tablet, 20 MG PO DAILY, (Reported) Entered as Reported by: CHIP SANCHEZ on 08/25/17 1000 Metoprolol Tartrate (Metoprolol Tartrate) 25 Mg Tablet, 25 MG PO BID, (Reported) Entered as Reported by: CHIP SANCHEZ on 08/25/17 1000 Pantoprazole Sodium (Protonix) 40 Mg Tablet.dr, 40 MG PO DAILY Prescribed by: JOSE VIRAMONTES on 09/11/17 1205 Prednisone (Prednisone) 20 Mg Tab, 40 MG PO DAILY Prescribed by: LOUISE DE LA TORRE on 10/16/17 0441 Prednisone (Prednisone) 20 Mg Tab, 40 MG PO DAILY Prescribed by: WAQAS CAMACHO on 05/24/21 1400 Review of Systems Review of Systems Constitutional: see HPI EENTM: see HPI Respiratory: see HPI, cough Cardiovascular: no symptoms reported 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: no symptoms reported Musculoskeletal: no symptoms reported Skin: no symptoms reported Psychiatric/Neurological: No Symptoms Reported Hematologic/Lymphatic: No Symptoms Reported Past Cxoqcwz-Vciokn-Dkjtev Hx Immunizations Up To Date Tetanus Booster (TDap): Unknown PED Vaccines UTD: No Seasonal Allergies Seasonal Allergies: Yes Past Medical History Surgeries: Yes Abdominal, Section, Gallbladder, Hysterectomy, Thyroidectomy Respiratory: Yes COPD Cardiac: Yes Hypertension Neurological: Yes Headaches /Migraines Reproductive Disorders: Yes Female Reproductive Disorders: Menstrual Problems CHIE[employer] History: Hysterectomy Sexually Transmitted Disease: No HIV/AIDS: No 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: Yes Renal Failure Gastrointestinal: Yes (epigastric pain) Gastroesophageal Reflux Musculoskeletal: No Endocrine: Yes (PARTIAL THYROIDECTOMY,HYPOGLYCEMIC) Hypothyroidsim HEENT: No Loss of Vision: Denies Hearing Impairment: Hard of Hearing Cancer: Yes Uterine Psychosocial: Yes Depression Integumentary: No Blood Disorders: No Family Medical History Cancer 19 MOTHER Family history: Diabetes mellitus 19 FATHER Stroke 19 FATHER Diabetes, Stroke Physical Exam Vital Signs Vital Signs - First Documented 05/24/21 05/24/21 13:00 14:13 Temp 36.3 Pulse 85 Resp 16 B/P (MAP) 158/76 (103) Pulse Ox 88 O2 Delivery Room Air O2 Flow Rate 2.00 Capillary Refill : Less Than 3 Seconds Height, Weight, BMI Height: 5'2.00" Weight: 165lbs. 0.0oz. 74.376181eg; 28.00 BMI Method:Stated General Appearance: No Apparent Distress, WD/WN Eyes: Bilateral Eye Normal Inspection, Bilateral Eye PERRL, Bilateral Eye EOMI Respiratory: No Accessory Muscle Use, No Respiratory Distress, Decreased Breath Sounds; No Respiratory Distress, No Wheezing Cardiovascular: Regular Rate, Rhythm, Normal Peripheral Pulses Gastrointestinal: Normal Bowel Sounds, Non Tender, Soft Extremity: Normal Capillary Refill, Normal Inspection Neurologic/Psychiatric: Alert, Oriented x3 Skin: Normal Color, Warm/Dry Progress/Results/Core Measures Suspected Sepsis SIRS Temperature: Pulse: 85 Respiratory Rate: 16 Laboratory Tests 05/24/21 13:01: White Blood Count 10.0 Blood Pressure 158 /76 Mean: 103 Laboratory Tests 05/24/21 13:01: Creatinine 1.13, Platelet Count 207, Total Bilirubin 0.2 Results/Orders Lab Results Laboratory Tests Test 05/24/21 12:50 05/24/21 13:01 05/24/21 13:07 Range/Units Group A Streptococcus Screen NEGATIVE NEGATIVE White Blood Count 10.0 4.3-11.0 10^3/uL Red Blood Count 4.69 3.80-5.11 10^6/uL Hemoglobin 13.6 11.5-16.0 g/dL Hematocrit 43 35-52 % Mean Corpuscular Volume 92 80-99 fL Mean Corpuscular Hemoglobin 29 25-34 pg Mean Corpuscular Hemoglobin Concent 32 32-36 g/dL Red Cell Distribution Width 13.1 10.0-14.5 % Platelet Count 207 130-400 10^3/uL Mean Platelet Volume 9.1 9.0-12.2 fL Immature Granulocyte % (Auto) 1 % Neutrophils (%) (Auto) 68 42-75 % Lymphocytes (%) (Auto) 21 12-44 % Monocytes (%) (Auto) 6 0-12 % Eosinophils (%) (Auto) 3 0-10 % Basophils (%) (Auto) 1 0-10 % Neutrophils # (Auto) 6.8 1.8-7.8 10^3/uL Lymphocytes # (Auto) 2.1 1.0-4.0 10^3/uL Monocytes # (Auto) 0.6 0.0-1.0 10^3/uL Eosinophils # (Auto) 0.3 0.0-0.3 10^3/uL Basophils # (Auto) 0.1 0.0-0.1 10^3/uL Immature Granulocyte # (Auto) 0.1 0.0-0.1 10^3/uL Sodium Level 137 135-145 MMOL/L Potassium Level 4.0 3.6-5.0 MMOL/L Chloride Level 101 98-107 MMOL/L Carbon Dioxide Level 27 21-32 MMOL/L Anion Gap 9 5-14 MMOL/L Blood Urea Nitrogen 11 7-18 MG/DL Creatinine 1.13 0.60-1.30 MG/DL Estimat Glomerular Filtration Rate 49 BUN/Creatinine Ratio 10 Glucose Level 97 70-105 MG/DL Calcium Level 8.8 8.5-10.1 MG/DL Corrected Calcium 9.0 8.5-10.1 MG/DL Total Bilirubin 0.2 0.1-1.0 MG/DL Aspartate Amino Transf (AST/SGOT) 11 5-34 U/L Alanine Aminotransferase (ALT/SGPT) 10 0-55 U/L Alkaline Phosphatase 69 40-136 U/L Total Protein 6.9 6.4-8.2 GM/DL Albumin 3.8 3.2-4.5 GM/DL Procalcitonin 0.02 <0.10 NG/ML Influenza Type A (RT-PCR) Not Detected Not Detecte Influenza Type B (RT-PCR) Not Detected Not Detecte SARS-CoV-2 RNA (RT-PCR) Not Detected Not Detecte Blood Gas Puncture Site RT RAD Blood Gas Patient Temperature 97.5 Arterial Blood pH 7.35 L 7.37-7.43 Arterial Blood Partial Pressure CO2 52 H 35-45 MMHG Arterial Blood Partial Pressure O2 64 L 79-93 MMHG Arterial Blood HCO3 29 H 23-27 MMOL/L Arterial Blood Total CO2 30.2 21.0-31.0 MMOL/L Arterial Blood Oxygen Saturation 93 L 94-100 % Arterial Blood Base Excess 3.3 H -2.5-2.5 MMOL/L Kevin Test NA Blood Gas Ventilator Setting NA Blood Gas Inspired Oxygen NA My Orders Orders - WAQAS CAMACHO APRN Covid 19 Inhouse Test (05/24/21 12:58) Procalcitonin (Pct) (05/24/21 12:58) Cbc With Automated Diff (05/24/21 12:58) Comprehensive Metabolic Panel (05/24/21 12:58) Ed Iv/Invasive Line Start (05/24/21 12:58) Chest 1 View, Ap/Pa Only (05/24/21 12:58) Arterial Blood Gas (05/24/21 12:58) Rapid Strep A Screen (05/24/21 13:11) Influenza A And B By Pcr (05/24/21 13:01) Ceftriaxone (Rocephin) (05/24/21 14:00) Albuterol/Ipra Inhalation Soln (Duoneb I (05/24/21 14:00) Methylprednisolone Sod Succ (Solu-Medrol (05/24/21 14:00) Svn Small Volume Nebulizer (05/24/21 13:57) Medications Given in ED Current Medications Medications Dose Ordered Sig/Sahil Route Start Time Stop Time Status Last Admin Dose Admin Albuterol/ Ipratropium 3 ml ONCE ONCE INH 05/24/21 14:00 05/24/21 14:01 DC 05/24/21 14:13 3 ML Ceftriaxone Sodium 1000 mg/ Sterile Water 10 ml @ 200 mls/hr ONCE ONCE IV 05/24/21 14:00 05/24/21 14:02 DC 05/24/21 14:05 200 MLS/HR Methylprednisolone Sodium Succinate 125 mg ONCE ONCE IVP 05/24/21 14:00 05/24/21 14:01 DC 05/24/21 14:05 125 MG Vital Signs/I&O 05/24/21 05/24/21 13:00 14:13 Temp 36.3 Pulse 85 Resp 16 B/P (MAP) 158/76 (103) Pulse Ox 88 97 O2 Delivery Room Air Nasal Cannula O2 Flow Rate 2.00 Capillary Refill : Less Than 3 Seconds Blood Pressure Mean: 103 Departure Impression Primary Impression: COPD exacerbation Disposition: HOME, SELF-CARE Condition: Stable Departure-Patient Inst. Decision time for Depature: 13:59 Referrals: [facility] [place] Primary Care Physician Patient Instructions: Exacerbation of COPD Add. Discharge Instructions: 1. Steroids and antibiotic as directed. Return to ER for any worsening. Follow-up with your doctor next week. All discharge instructions reviewed with patient and/or family. Voiced understanding. Scripts Cefuroxime Axetil (Cefuroxime) 250 Mg Tablet 250 MG PO BID, #10 TAB Prov: WAQAS CAMACHO APRN 05/24/21 Prednisone (Prednisone) 20 Mg Tab 40 MG PO DAILY, #6 TAB 0 Refills Prov: WAQAS CAMACHO APRN 05/24/21 WAQAS CAMACHO APRN May 24, 2021 13:10
[2021-05-24 13:11] LABS: ABG BASE EXCESS 3.3 MMOL/L (-2.5-2.5); ABG OXYGEN SATURATION 93 % (94-100); ABG PCO2 52 MMHG (35-45); ABG PH 7.35 (7.37-7.43); ABG PO2 64 MMHG (79-93); ABG TCO2 30.2 MMOL/L (21.0-31.0)
[2021-05-24 13:13] LABS: PATIENT TEMP 97.5
[2021-05-24 13:28] LABS: ALBUMIN 3.8 GM/DL (3.2-4.5); BILIRUBIN,TOTAL 0.2 MG/DL (0.1-1.0); CALCIUM 8.8 MG/DL (8.5-10.1); CREATININE SERUM 1.13 MG/DL (0.60-1.30); TOTAL PROTEIN 6.9 GM/DL (6.4-8.2)
--- NOTE | 2021-05-24 13:51 | Diagnostic Imaging Report ---
INDICATION: soa COMPARISON: 02/02/2018. FINDINGS: Single frontal view of the chest demonstrates normal heart size and pulmonary vascularity. The lungs are well aerated and clear. No large pleural effusion or pneumothorax is seen. The visualized osseous structures show no acute abnormalities. IMPRESSION: 1. No acute cardiopulmonary process. Dictated by: Dictated on workstation # [id number]
[2021-05-24] MEDS ORDERED: PRD20T PO (14:00)
[2021-05-24] MEDS ORDERED: RT-ALBUTEROL/IPRATROPIUM 3 ML (DUONEB) VIAL INH ONE (14:00)
[2021-05-24] MEDS ORDERED: methylPREDNISolone 125 MG (Solu-MEDROL) VIAL IVP ONE (14:00)
[2021-05-24] MEDS ORDERED: CEFU250T80 PO (14:00)
[2021-05-24] MEDS ORDERED: cefTRIAXone 1,000 MG in WATER (STERILE) FOR INJECTION 10 ML IV ONE (14:00)
[2021-05-24 14:30] VITALS: BP 147/73
== END 2021-05-24 14:30 | disposition home or self-care (01) ==
LOC: EDUNIT# 12:24 → ER 12:27
DX: J44.1 Chronic obstructive pulmonary disease with (acute) exacerbation (principal); I10 Essential (primary) hypertension; K21.9 Gastro-esophageal reflux disease without esophagitis; Z20.822 Contact with and (suspected) exposure to COVID-19; Z79.82 Long term (current) use of aspirin; Z79.899 Other long term (current) drug therapy
CPT/HCPCS: 36415; 71045; 80053; 82805; 84145; 85025; 87430; 87636; 94640

== ENCOUNTER 2021-12-29 05:54 | Outpatient (CLI) | payer MEDICARE, MEDICAID ==
[~2021-12-29] VITALS: Ht 157.5 cm; Wt 70.0 kg
[~2021-12-29 05:54] MED LIST changes: +CEFU250T80 PO; +CYCL10TA25 PO; -CYCL10TA9 PO
[2021-12-29] MEDS ORDERED: OMEP40CA6 PO (09:47)
[2021-12-29] MEDS ORDERED: FLUO20CA48 PO (09:47)
[2021-12-29] MEDS ORDERED: TRAZ-227 PO (09:47)
== END 2021-12-29 10:31 | disposition home or self-care (01) ==
LOC: PREOP 05:54
PROVIDERS: ATTEND Surgery
DX: Z01.818 Encounter for other preprocedural examination (principal)

== ENCOUNTER 2022-01-05 10:41 | Day surgery (SDC) | payer MEDICARE, MEDICAID ==
[~2022-01-05] VITALS: Ht 157 cm; Wt 70.0 kg
[~2022-01-05 10:41] MED LIST changes: +FLUO20CA48 PO; +OMEP40CA6 PO; +TRAZ-227 PO
[2022-01-05] MEDS ORDERED: LACTATED RINGERS 1,000 ML IV STA (10:46)
[2022-01-05] MEDS ORDERED: FLUT1BLS3 IH (10:54)
[2022-01-05 11:00] VITALS: BP 166/73
[2022-01-05] MEDS ORDERED: HURRICAINE EXT TUBE (BENZOCAINE) XX PRN (11:00)
[2022-01-05] MEDS ORDERED: LIDOCAINE JELLY 2% 6 ML SYRINGE MM PRN (11:00)
--- NOTE | 2022-01-05 11:29 | Progress Note-Pre Operative ---
Pre-Operative Progress Note H&P Reviewed The H&P was reviewed, patient examined and no changes noted. Date Seen by Provider: Jan 05, 2022 Time Seen by Provider: 11:00 Date H&P Reviewed: Jan 05, 2022 Time H&P Reviewed: 11:00 Pre-Operative Diagnosis: dysphagia LONNY MARTINEZ MD Jan 05, 2022 11:29
[2022-01-05] MEDS ORDERED: ONDANSETRON 4 MG (ZOFRAN) ORAL DISSOLVE TAB PO PRN (11:30)
[2022-01-05] MEDS ORDERED: ONDANSETRON 4 MG/2 ML (SDV) Z0FRAN IVP PRN (11:30)
[2022-01-05] MEDS ORDERED: PANT40TA2 PO (11:30)
--- NOTE | 2022-01-05 11:30 | Discharge Inst-Surgical ---
D/C Lap Instructions-KIDO New, Converted, or Re-Newed RX: RX on Chart Follow Up Activity as tolerated High Fiber Diet 25g or more per day Avoid Alcohol, Caffeine, Spicy [place] and Acid foods. Drink 64 fluid oz or more of fluids per day. Symptoms to Report: Fever over 101 degree F, Nausea/Vomiting If any problems/questions: Contact your physician or go to Emergency Room LONNY MARTINEZ MD Jan 05, 2022 11:30
[2022-01-05] MEDS ORDERED: PROPOFOL INJECTION 50 ML IV ONE (12:18)
[2022-01-05 13:05] VITALS: BP 132/60
[2022-01-05 13:10] VITALS: BP 118/54
[2022-01-05 13:14] VITALS: BP 119/58
--- NOTE | 2022-01-05 13:20 | Progress Note-Post Operative ---
Post-Operative Progess Note Surgeon (s)/Motorcycle Mechanic (s) Surgeon LONNY MARTINEZ MD Motorcycle Mechanic: none Pre-Operative Diagnosis dysphagia Post-Operative Diagnosis reflux esophagitis(grade B), intact HH repair and antireflux procedure, mod-severe gastritis. chronic stage 2 ext and int hemorrhoids, small sessile polyp hepatic flex(3mm). Procedure & Operative Findings Date of Procedure 01/05/22 Procedure Performed/Findings EGD with bx. colonoscopy with bx. Anesthesia Type mac Estimated Blood Loss Estimated blood loss (mL): minimal Specimens/Packing Specimens Removed ge jxn, antrum, hepatic flex polyp LONNY MARTINEZ MD Jan 05, 2022 13:19
[2022-01-05 13:35] VITALS: BP 156/84
--- NOTE | 2022-01-05 13:54 | Anesthesia-General Post-Op ---
MAC Patient Condition Mental Status/LOC: Same as Preop Cardiovascular: Satisfactory Nausea/Vomiting: Absent Respiratory: Satisfactory Pain: Controlled Complications: Absent Post Op Complications Complications None Follow Up Care/Instructions Patient Instructions None needed. Anesthesiology Discharge Order Discharge Order Patient is doing well, no complaints, stable vital signs, no apparent adverse anesthesia problems. No complications reported per nursing. JG BOATENG CRNA Jan 05, 2022 13:54
--- NOTE | 2022-01-05 18:49 | OPERATIVE REPORT ---
DATE OF SERVICE: 01/05/2022 ATTENDING CENTRAL SERVICE SUPPLY DISTRIBUTOR: [facility]. PREOPERATIVE DIAGNOSES: Gastroesophageal reflux disease, screening colonoscopy. POSTOPERATIVE DIAGNOSES: Reflux esophagitis, [place] grade B, previous hiatal hernia repair and antireflux procedure intact. Moderate to severe gastritis. Chronic stage II external and internal hemorrhoids. Small sessile polyp at the hepatic flexure. PROCEDURE: EGD with biopsy, colonoscopy with polypectomy with biopsy forceps and electrocautery. SURGEON: Lonny Martinez MD ANESTHESIA: Monitored anesthesia care. ESTIMATED BLOOD LOSS: Minimal. FINDINGS: Reflux esophagitis, [place] grade B, previous hiatal hernia repair and antireflux procedure intact. Moderate to severe gastritis. Chronic stage II external and internal hemorrhoids. Small sessile polyp at the hepatic flexure. DISPOSITION: The patient tolerated the procedure well. INDICATION FOR PROCEDURE: The patient is a 61-year-old female in need of a screening colonoscopy. She states that her last one was approximately 10 years ago, and she believes this to be normal. She does have a first-degree family history with her father and brother having the disease. She does not report any diarrhea nor constipation as well as no red blood per rectum nor any dark tarry stools. She does have some issues with reflux and states that she may have some mild dysphagia at times as well. She is currently on omeprazole 40 mg daily. She does have risk factors including current smoker, 40 pack years, previous alcohol, however, none now. DESCRIPTION OF PROCEDURE: The patient was brought to the endoscopy suite, laid in the left lateral decubitus position. After adequate IV pain and sedative medications and monitored anesthesia care, the mouthpiece was applied. The endoscope was placed in the mouth, visualizing the pharynx and hypopharyngeal region. Vocal cords, epiglottis and vallecula identified and appeared to be normal. The endoscope was then gently intubated at esophageal opening and esophagus insufflated. The endoscope was then advanced through the first, second and third portion of the esophagus at the level of GE junction, reflux esophagitis, [place] grade B identified. There were no ulcers or strictures identified. A biopsy was taken with forceps with visualization of good hemostasis. The endoscope was then advanced into the stomach and endoscope retroflexed, visualizing a previous hiatal hernia repair as well as what appears to be a Amy fundoplication. There was a moderate to severe gastritis towards the antrum of the stomach and biopsy was taken of the antrum to rule out H. pylori with forceps with visualization of good hemostasis. The endoscope was then advanced to the pylorus and the first and second portion of the duodenum, which appeared normal. The endoscope was then slowly withdrawn while taking a second look and suctioning residual air with no additional findings. A digital rectal examination was performed, which revealed chronic stage II external and internal hemorrhoids, not actively edematous nor inflamed and no bleeding. Normal sphincter tone was felt and there were no palpable masses. The endoscope was then intubated to the anus and the rectum insufflated. The endoscope was then advanced through the valves of Becerra of the rectum with no polyps or any neoplasms identified. Through the sigmoid colon, there were no diverticulosis identified. We then proceeded through the remainder of the descending and transverse colon and at the hepatic flexure, a small sessile polyp approximately 2 to 3 mm was identified, and this was biopsied and destroyed with forceps and electrocautery with visualization of good hemostasis. The endoscope was then advanced to the remainder of the ascending colon to the cecum, which were normal. Endoscope was then slowly withdrawn while taking a second look and suctioning of residual air with no additional findings. The patient tolerated the procedure well. We will start her on Protonix 40 mg daily in addition to her omeprazole to be taken at a different time during the day. We also recommend the necessary lifestyle and dietary accommodation including small and more frequent meals, avoiding to eating at night as well as head elevation while lying supine. If she has continued episodes of dysphagia, we will have her return and schedule her for graded dilatation. We will also recommend a high fiber diet with at least 25 grams of fiber daily to promote soft stools on a daily basis. Due to her first-degree family history of colon cancer, we will recommend a followup colonoscopy in five years. Job ID: [id number] DocumentID: [id number] Dictated Date: 01/05/2022 13:15:20 Supervisor Powdered Sugar Date: 01/05/2022 18:48:30 Dictated By: LONNY MARTINEZ MD
== END 2022-01-05 13:43 | disposition home or self-care (01) ==
LOC: ENDO 10:41
PROVIDERS: ATTEND Surgery
DX: Z12.11 Encounter for screening for malignant neoplasm of colon (principal); K31.89 Other diseases of stomach and duodenum; K21.9 Gastro-esophageal reflux disease without esophagitis; K44.9 Diaphragmatic hernia without obstruction or gangrene; K29.70 Gastritis, unspecified, without bleeding; K64.4 Residual hemorrhoidal skin tags; K64.1 Second degree hemorrhoids; D12.3 Benign neoplasm of transverse colon; F17.210 Nicotine dependence, cigarettes, uncomplicated

== ENCOUNTER → 2022-02-01 | Outpatient (CLI) | payer MEDICARE, MEDICAID ==
[~2022-02-01] MED LIST changes: +FLUT1BLS3 IH
--- NOTE | 2022-02-01 11:23 | Diagnostic Imaging Report ---
INDICATION: 61-year-old postmenopausal female COMPARISON: None FINDINGS: AP Spine L1-L4: [BMD (g/cm2): 0.970] [T-Score: -1.9] [Z-Score: -0.8] [BMD Previous: na] [BMD % Change: na] LT Hip Neck: [BMD (g/cm2): 0.762] [T-Score: -2.0] [Z-Score: -0.8] LT Hip Total: [BMD (g/cm2):0.793] [T-Score:-1.7] [Z-Score: -0.9] [BMD Previous: na] [BMD % Change: na] RT Hip Neck: [BMD (g/cm2):0.767] [T-Score:-2.0] [Z-Score:-0.8] RT Hip Total: [BMD (g/cm2):0.769] [T-score:-1.9] [Z-Score:-1.1] [BMD Previous:na] [BMD % Change:na] World Health Organization criteria for BMD interpretation classify patients as Normal (T-score at or above -1.0), Osteopenic (T-score between -1.0 and -2.5) or Osteoporotic (T-score at or below -2.5). LIMITATIONS AND MODIFICATION: None. FRACTURE RISK (FRAX SCORE): The ten year probability of (%): Major Osteoporotic Fracture: [9.6] Hip Fracture: [1.2] IMPRESSION: 1. Osteopenia (Low bone mass). 2. Baseline examination. 3. See below National Osteoporosis Foundation guidelines on when to potentially initiate pharmacologic therapy. Based on the National Osteoporosis Foundation Guidelines, pharmacologic treatment should be initiated in any of the following, unless clinical conditions suggest otherwise: * Any patient with prior fragility fracture of the hip or vertebrae. A spine fracture indicates 5X risk for subsequent spine fracture and 2X risk for subsequent hip fracture. * Osteoporosis (T-score <-2.5). * Postmenopausal women and men age 50 and older with low bone mass/osteopenia (T-score between -1.0 and -2.5) by DXA and 10-year major osteoporotic fracture greater than 20% or a 10-year probability of hip fracture greater than 3%. These fracture risks are supplied above in the FRAX score, if applicable. * Clinician judgement and/or patient preferences may indicate treatment for people with 10-year fracture probabilities above or below these levels. Dictated by: Dictated on workstation # [id number]
== END ==
LOC: RAD 09:20
PROVIDERS: ATTEND Nurse Practitioner
DX: J44.0 Chronic obstructive pulmonary disease with (acute) lower respiratory infection (principal); M85.80 Other specified disorders of bone density and structure, unspecified site; Z78.0 Asymptomatic menopausal state; F17.200 Nicotine dependence, unspecified, uncomplicated
CPT/HCPCS: 77080

== ENCOUNTER → 2022-10-18 | Outpatient (CLI) | payer MEDICARE, MEDICAID ==
--- NOTE | 2022-10-18 16:31 | Diagnostic Imaging Report ---
EXAMINATION: MRI of the abdomen without contrast. MRCP TECHNIQUE: Multiplanar, multisequence MR images of the abdomen were obtained without intravenous contrast including 3D MIP MRCP images. HISTORY: Kidney cyst COMPARISON: None available. FINDINGS: Liver: No suspicious liver lesions. No steatosis. No surface nodularity. Ducts: No biliary ductal dilation. Gallbladder: Absent. Pancreas: Normal. Spleen: Normal. Adrenals: Normal. Kidneys: No suspicious lesions. No hydronephrosis. There are simple cysts in the kidneys. Bowel: Normal. Other: No lymphadenopathy. Visualized portions of the thorax are normal. No suspicious osseus lesions. IMPRESSION: 1. Simple cysts in the kidneys. Evaluation for solid renal lesions is limited without contrast. Dictated by: Dictated on workstation # [id number]
== END ==
LOC: RAD 13:08
PROVIDERS: ATTEND Internal Medicine Nephrology
DX: N28.1 Cyst of kidney, acquired (principal); E83.9 Disorder of mineral metabolism, unspecified; I12.9 Hypertensive chronic kidney disease with stage 1 through stage 4 chronic kidney disease, or unspecified chronic kidney disease; N18.31 Chronic kidney disease, stage 3a
CPT/HCPCS: 74181

== ENCOUNTER → 2022-10-27 | Outpatient (CLI) | payer MEDICARE, MEDICAID ==
[2022-10-27 10:28] LABS: HEMATOCRIT 40 % (35-52); HEMOGLOBIN 12.9 g/dL (11.5-16.0); MEAN CORPUSCULAR HEMOGLOBIN 28 pg (25-34); MEAN CORPUSCULAR HGB CONC 32 g/dL (32-36); MEAN CORPUSCULAR VOLUME 88 fL (80-99); MEAN PLATELET VOLUME 9.3 fL (9.0-12.2); PLATELET COUNT 191 10^3/uL (130-400); WHITE BLOOD COUNT 11.9 10^3/uL (4.3-11.0)
[2022-10-27 10:29] LABS: BILIRUBIN,URINE NEGATIVE (NEGATIVE); CLARITY,URINE CLEAR; COLOR,URINE YELLOW; GLUCOSE, URINE (UA) NEGATIVE (NEGATIVE); KETONES,URINE NEGATIVE (NEGATIVE); LEUKOCYTE ESTERASE ,URINE NEGATIVE (NEGATIVE); NITRITE,URINE NEGATIVE (NEGATIVE); PROTEIN,URINE TRACE (NEGATIVE)
[2022-10-27 10:37] LABS: BACTERIA,URINE TRACE /HPF; SQUAMOUS EPITHELIAL CELL,UR 0-2 /HPF; WBC,URINE RARE /HPF
[2022-10-27 10:55] LABS: ALBUMIN 3.5 GM/DL (3.2-4.5); CALCIUM 9.1 MG/DL (8.5-10.1); CREATININE SERUM 1.17 MG/DL (0.60-1.30); PHOSPHORUS 3.5 MG/DL (2.3-4.7); POTASSIUM 3.8 MMOL/L (3.6-5.0); URIC ACID 5.7 MG/DL (2.6-7.2)
== END ==
LOC: LAB 09:51
PROVIDERS: ATTEND Internal Medicine Nephrology
DX: I12.9 Hypertensive chronic kidney disease with stage 1 through stage 4 chronic kidney disease, or unspecified chronic kidney disease (principal); N18.31 Chronic kidney disease, stage 3a; N28.1 Cyst of kidney, acquired
CPT/HCPCS: 36415; 80069; 81000; 82306; 82570; 83970; 84156; 84550; 85027

== ENCOUNTER 2022-10-29 15:37 | Emergency (ER) | payer OTHER, MEDICARE, MEDICAID ==
[~2022-10-29] VITALS: Ht 152 cm; Wt 72.0 kg
[2022-10-29 15:37] VITALS: BP 177/97
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
[2022-10-29] MEDS ORDERED: HYDROcodone/APAP 5 MG/325 MG (LORTAB) TAB PO ONE (16:00)
--- NOTE | 2022-10-29 16:29 | Diagnostic Imaging Report ---
HISTORY: Anterior left knee pain. COMPARISON: 02/02/2018. TECHNIQUE: 3 views of the left knee. FINDINGS: No acute fracture or dislocation is seen in the left knee. Alignment is normal. Joint spaces are preserved. No knee joint effusion is seen. IMPRESSION: No acute osseous abnormality is seen in the left knee. Dictated by: Dictated on workstation # [id number]
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
== END 2022-10-29 16:54 | disposition home or self-care (01) ==
LOC: EDUNIT# 15:42 → ER 15:43
DX: S00.03XA Contusion of scalp, initial encounter (principal); S80.02XA Contusion of left knee, initial encounter; J44.9 Chronic obstructive pulmonary disease, unspecified; Z87.891 Personal history of nicotine dependence; Z99.81 Dependence on supplemental oxygen; Z28.310 Unvaccinated for COVID-19; V49.50XA Passenger injured in collision with unspecified motor vehicles in traffic accident, initial encounter; Y92.410 Unspecified street and highway as the place of occurrence of the external cause
CPT/HCPCS: 70450; 72125; 73562

== ENCOUNTER → 2022-12-27 | Outpatient (CLI) | payer MEDICARE, MEDICAID | LOC: CARD 11:56 | PROVIDERS: ATTEND Internal Medicine Cardiovascular Disease | DX: R06.09 Other forms of dyspnea (principal) | CPT/HCPCS: 93306 ==

== ENCOUNTER → 2023-02-21 | Outpatient (CLI) | payer MEDICARE, MEDICAID ==
[~2023-02-21] VITALS: Ht 157 cm; Wt 71.0 kg
[~2023-02-21] MED LIST changes: +CATHETER FLUSH 10 ML SYR IVP PRN; +REGADENOSON 0.4 MG/5 ML SYR (LEXISCAN) IV ONE
[2023-02-21 09:07] VITALS: BP 151/91
--- NOTE | 2023-02-22 15:25 | STRESS TEST ---
DATE OF SERVICE: 02/21/2023 RESTING AND POST REGADENOSON TECHNETIUM-99M TETROFOSMIN SPECT CT IMAGING ORDERING PHYSICIAN: Dr. Brewer. PRIMARY PHYSICIAN: [facility]. CLINICAL DIAGNOSIS: Shortness of breath. Baseline images were carried out after injection of 11 mCi of technetium-99m tetrofosmin. This was followed by 0.4 mg regadenoson and 28.8 mCi of technetium-99m tetrofosmin for stress imaging. The electrocardiogram showed sinus rhythm at baseline. It did not change significantly with regadenoson infusion. The patient noted some shortness of breath following regadenoson infusion, which resolved in a few minutes. Review of images at rest and following stress does not indicate any distinct perfusion defects consistent with significant myocardial ischemia or infarction. Gated images show normal global left ventricular systolic function with normal regional wall motion. Left ventricular ejection fraction is calculated to be 54%. CONCLUSIONS: 1. No evidence of any significant myocardial ischemia or infarction on this study. 2. Normal regional wall motion. 3. Normal global left ventricular systolic function with a calculated ejection fraction of 54%. Job ID: [id number] DocumentID: [id number] Dictated Date: 02/22/2023 13:14:58 Quality Control Scientist Date: 02/22/2023 15:24:00 Dictated By: ALEKSEY BREWER MD; ARCENIO; FACP; FACC;
== END ==
LOC: CARD 08:00
PROVIDERS: ATTEND Internal Medicine Cardiovascular Disease
DX: R06.09 Other forms of dyspnea (principal); R06.02 Shortness of breath
CPT/HCPCS: 78452; 93017